=== PATIENT | female | born 1990 | race African-American/Black ===

== ENCOUNTER 2017-03-08 08:23 | Inpatient (IN) | payer OTHER ==
[2017-03-08] MEDS ORDERED: SODIUM CHLORIDE 1,000 ML IV STA (08:59)
--- NOTE | 2017-03-08 09:04 | PDOC ---
Attending Attestation - HPI HPI: 03/08/17 09:05 The patient is a 25 year old female, with a significant past medical history of Type I Diabetes, who presents to the emergency department with elevated bgm s/p insulin pump disconnection from last night. She notes since then having high bgm readings at home and en route to the ER with EMS. Patient notes having multiple episodes of DKA last known DKA was about a year ago. She denies recent fevers, chills, headache or dizziness. She denies recent nausea, vomit, or constipation. She denies recent dysuria, frequency, urgency or hematuria. She denies recent chest pain or shortness of breath. Allergies: NKA Past surgical history: None reported. Social history: Nonsmoker. Denies EtOH use and recreational drug use. - Physicial Exam PE: 03/08/17 09:05 Constitutional: Awake, alert, oriented. No acute distress. +Tachycardic Head: Normocephalic. Atraumatic Eyes: PERRL. EOMI. Conjunctivae are not pale. ENT: Mucous membranes are dry. Posterior pharynx without exudates or erythema. Uvula midline. Neck: Supple. Full ROM. No lymphadenopathy. Cardiovascular: Regular rate. Regular rhythm. S1, S2 regular. Distal pulses are 2+ and symmetric. Pulmonary/Chest: Diminished breath sounds Right lung field. Clear to auscultation bilaterally No wheezing, rales or rhonchi. +Tachypneic Abdominal: Soft and non-distended. There is LLQ and suprapunic tenderness. No rebound, guarding or rigidity. No organomegaly. No palpable masses. Good bowel sounds. Back: No CVA tenderness. Musculoskeletal: No edema. No cyanosis. No clubbing. Full range of motion in all extremities. Nocalf tenderness. Radial/pedal pulses are intact and 2+ bilaterally Skin: Skin is warm and dry. No petechiae. No purpura. Neurological: Alert and oriented to person, place, and time. Cranial nerves II -XII are grossly intact. Normal speech. Strength is grossly symmetric. No sensory deficits. Psychiatric: Good eye contact. Normal interaction, affect and behavior. <Roverto Deleon - Last Filed: 03/08/17 09:05> - Resident Resident Name: Garret Coulter - ED Attending Attestation I have performed the following: I have examined & evaluated the patient, The case was reviewed & discussed with the resident, I agree w/resident's findings & plan, Exceptions are as noted - Critical Care Time Total Critical Care Time: 45 Critical Care Statement: The care of this patient involved high complexity decision making to prevent further life threatening deterioration of the patient 's condition and/or to evaluate & treat vital organ system(s) failure or risk of failure. - Medical Decision Making 03/08/17 09:04 I, Dr. Nicol Arreola, DO, attest that this document has been prepared under my direction and personally reviewed by me in its entirety. I further attest, that it accurately reflects all work, treatment, procedures and medical decision -making performed by me. 03/08/17 12:36 a/p: 26yo female with uncontrolled type 1 dm on insulin pump -concern for DKA given pump fell off and glucose undetecably high -labs -acetone -ua -ivf hydration -pt is poorly controlled as an oupt with a1c of 11.5 -pump back on and gave herself 7 units BAND LINING BANDER. 03/08/17 13:18 pt with worsening bicarb. concern for DKA, despite iv insulin and NSS. will start insulin gtt. pt will need admission for DKA. 03/08/17 13:44 case discussed with IM who accepts pt to service, consult placed to Dr. Greenberg for ICU. Admitted under Dr. Michelle. <Nicol Arreola - Last Filed: 03/08/17 13:45> Heart Score/ECG Review - ECG Intrepretation Comment:: 03/08/17 12:37 sinus at 97, nl axis, nl interval, no acute st/t wave findings <Nicol Arreola - Last Filed: 03/08/17 13:45>
[2017-03-08 09:18] LABS: BASOPHIL 0.4 % (0-2.0); EOSINOPHIL 0.4 % (0-4.5); MCH 29.9 pg (25.7-33.7); MEAN CELL VOLUME 90.5 fl (80-96); PLATELET COUNT 254 K/MM3 (134-434); RDW 13.9 % (11.6-15.6); WHITE BLOOD COUNT 7.1 K/mm3 (4.0-10.0)
--- NOTE | 2017-03-08 09:23 | PDOC ---
History of Present Illness - General Chief Complaint: Blood Sugar Problem Stated Complaint: BLOOD SUGAR ISSUE Time Seen by Provider: 03/08/17 08:38 History Source: Patient Exam Limitations: No Limitations - History of Present Illness Initial Comments: 03/08/17 09:17 The patient is a 26F with a PMH of T1DM who presents to the ED with a blood glucose problem. The patient states that her humalog pump ripped out overnight. Before she slept she states that her BG was in the 400's. She woke up this morning, noticed the pump was ripped out, and was able to put the pump back in. She checked her BG and it read "high". She gave herself 7 units of humalog at 0726. She has been in DKA 1 year ago and came to the ED with complaints of only lethargy. Patient denies fever, chills, nausea, vomiting, CP, SOB. Past History - Past Medical History Allergies/Adverse Reactions: Allergies Allergy/AdvReac Type Severity Reaction Status Date / Time No Known Allergies Allergy Verified 03/08/17 08:36 Home Medications: Ambulatory Orders Insulin Pump/Infus. Set/Meter [Accu-Chek Combo System] 1 each MC ASDIR 03/08/17 Diabetes: Yes (type 1 on insulin pump) - Surgical History Cholecystectomy: Yes - Suicide/Smoking/Psychosocial Hx Smoking History: Never smoked Have you smoked in the past 12 months: No Information on smoking cessation initiated: No Hx Alcohol Use: No Drug/Substance Use Hx: No Substance Use Type: None Review of Systems - Review of Systems Able to Perform ROS?: Yes Comments:: 03/08/17 09:25 GENERAL/CONSTITUTIONAL: No fever or chills. No weakness. HEAD, EYES, EARS, NOSE AND THROAT: No change in vision. No ear pain or discharge. No sore throat. GASTROINTESTINAL: No nausea, vomiting, diarrhea, constipation, or abdominal pain. GENITOURINARY: No dysuria, frequency, hematuria, or change in urination. CARDIOVASCULAR: No chest pain, palpitations, or lightheadedness. RESPIRATORY: No cough, wheezing, shortness of breath, or hemoptysis. MUSCULOSKELETAL: No joint or muscle swelling or pain. No neck or back pain. SKIN: No rash or lesions. NEUROLOGIC: No headache, numbness, tingling, weakness, loss of consciousness, or change in strength/sensation. ENDOCRINE: No abnormal weight change. Positive for increased thirst. HEMATOLOGIC/LYMPHATIC: No anemia, easy bleeding, or history of blood clots. ALLERGIC/IMMUNOLOGIC: No hives or skin allergy. Is the patient limited Swedish proficient: No *Physical Exam - Vital Signs Last Vital Signs Temp Pulse Resp BP Pulse Ox 98.2 F 100 H 20 119/72 100 03/08/17 08:36 03/08/17 08:36 03/08/17 08:36 03/08/17 08:36 03/08/17 08:36 - Physical Exam Comments: 03/08/17 09:26 GENERAL: Well developed, well nourished. Awake and alert. No acute distress. HEENT: Normocephalic, atraumatic. PERRLA, EOMI. No conjunctival pallor. Sclera are non- icteric. Moist mucous membranes. Oropharynx is clear. NECK: Supple. Full ROM. No JVD. Carotid pulses 2+ and symmetric, without bruits. No thyromegaly. No lymphadenopathy. CARDIOVASCULAR: Regular rate and rhythm. No murmurs, rubs, or gallops. Distal pulses are 2+ and symmetric. PULMONARY: No evidence of respiratory distress. No wheezing, rales or rhonchi. Decreased lung sounds on the R side. ABDOMINAL: Soft. Non-tender. Non-distended. No rebound or guarding. No organomegaly. Normoactive bowel sounds. GENITOURINARY: Mild CVA tenderness on R side. MUSCULOSKELETAL Normal range of motion at all joints. No bony deformities or tenderness. EXTREMITIES: No cyanosis. No clubbing. No edema. No calf tenderness. SKIN: Warm and dry. Normal capillary refill. No rashes. No jaundice. NEUROLOGICAL: Alert, awake, appropriate. Normal speech. Gait is normal without ataxia. PSYCHIATRIC: Cooperative. Good eye contact. Appropriate mood and affect. ED Treatment Course - LABORATORY CBC & Chemistry Diagram: 03/08/17 12:00 03/08/17 12:10 Medical Decision Making - Medical Decision Making 03/08/17 09:26 The patient is a 26F with a PMH of T1DM who presents in mild DKA. I have ordered labs and imaging and established a line. Pending results. Will dispo as appropriate. I am concerned for an infectious process in her lungs and/or kidneys that could have caused her BG to be elevated last night, only to be worsened by a disconnected pump overnight. Will reassess when labs/imaging return. 03/08/17 10:39 Patient does not have a WBC count. Acetone 2+. Will order IV insulin. UA indicative of UTI. I have ordered levaquin 750 for UTI. pH does not indicate acidosis. 03/08/17 12:55 Patient states she is feeling better. She is resting comfortably in bed. Pending repeat labs. 03/08/17 13:36 Patient's repeat labs are indicative of DKA. Admitted to hospitalist team for ICU with Dr. Greenberg as ICU consult. *DC/Admit/Observation/Transfer Diagnosis at time of Disposition: Pyelonephritis Diabetic ketoacidosis Qualifiers: Diabetes mellitus type: type 1 Diabetes mellitus complication detail: without coma Qualified Code(s): E10.10 - Type 1 diabetes mellitus with ketoacidosis without coma; E10.10 - Type 1 diabetes mellitus with ketoacidosis without coma; E10.10 - Type 1 diabetes mellitus with ketoacidosis without coma; E10.10 - Type 1 diabetes mellitus with ketoacidosis without coma - Discharge Dispostion Condition at time of disposition: Guarded Admit: Yes
[2017-03-08 09:24] VITALS: BMI 16.5
[2017-03-08 09:28] LABS: INR 0.88 (0.82-1.09)
[2017-03-08 09:34] LABS: VENOUS BLOOD GAS HCO3 23.5 meq/L (19-25); VENOUS PH 7.35 (7.32-7.42)
[2017-03-08 09:54] LABS: ALBUMIN 3.6 g/dl (3.4-5.0); ANION GAP 14 (8-16); BILIRUBIN,TOTAL 0.6 mg/dL (0.2-1.0); CALCIUM 9.1 mg/dL (8.5-10.1); CO2 24 mmol/L (21-32); CREATININE 0.9 mg/dL (0.55-1.02); SGOT/AST 13 U/L (15-37); SGPT/ALT 24 U/L (12-78); TOT PROT 7.5 g/dl (6.4-8.2)
[2017-03-08 09:56] LABS: ALK PHOS 99 U/L (45-117); CPK 78 IU/L (26-192); TROPONIN I < 0.02 ng/ml (0.00-0.05)
[2017-03-08 09:59] LABS: GLUCOSE,RANDOM 503 mg/dL (74-106)
[2017-03-08 10:14] LABS: PH,URINE 5.5 (5.0-8.0); URINE APPEARANCE CLEAR; URINE BILIRUBIN NEGATIVE (NEGATIVE); URINE BLOOD 1+ (NEGATIVE); URINE COLOR LT. YELLOW; URINE GLUCOSE (UA) 3+ (NEGATIVE); URINE KETONE 3+ (NEGATIVE); URINE PROTEIN NEGATIVE (NEGATIVE); URINE UROBILINOGEN 0.2 mg/dL (0.2-1.0)
[2017-03-08 10:18] LABS: URINE NITRITE POSITIVE (NEGATIVE)
[2017-03-08] MEDS ORDERED: INSULIN (NOVOLOG) ASPART 100 UNITS/ML 10ML VIAL SQ ONE (10:23)
[2017-03-08] MEDS ORDERED: SODIUM CHLORIDE 0.9% 1000 ML INFUS.BAG IV ONE ×3 (10:23→13:23)
[2017-03-08] MEDS ORDERED: LEVOFLOXACIN 500 MG IVPB 100 ML IVPB ONE (10:31)
[2017-03-08 10:32] LABS: MAGNESIUM 2.1 mg/dL (1.8-2.4)
[2017-03-08] MEDS ORDERED: INSULIN REGULAR HUMAN 100 UNITS/ML *VIAL IVPUSH ONE (10:33)
[2017-03-08] MEDS ORDERED: LEVOFLOXACIN 750 MG IVPB 150 ML IVPB ONE ×2 (10:35→11:13)
[2017-03-08 12:25] LABS: BASOPHIL 0.3 % (0-2.0); EOSINOPHIL 0.1 % (0-4.5); MCH 30.1 pg (25.7-33.7); MCHC 33.4 g/dl (32.0-36.0); MEAN CELL VOLUME 90.2 fl (80-96); MEAN PLT VOLUME 8.9 fl (7.5-11.1); NEUTROPHILS 69.1 % (42.8-82.8); PLATELET COUNT 214 K/MM3 (134-434); RDW 14.1 % (11.6-15.6); WHITE BLOOD COUNT 6.9 K/mm3 (4.0-10.0)
[2017-03-08 13:00] LABS: ALBUMIN 3.1 g/dl (3.4-5.0); ALK PHOS 77 U/L (45-117); ANION GAP 16 (8-16); BILIRUBIN,TOTAL 0.4 mg/dL (0.2-1.0); CALCIUM 7.3 mg/dL (8.5-10.1); CO2 17 mmol/L (21-32); CREATININE 0.7 mg/dL (0.55-1.02); SGOT/AST 11 U/L (15-37); SGPT/ALT 20 U/L (12-78); TOT PROT 6.2 g/dl (6.4-8.2)
[2017-03-08 13:05] LABS: GLUCOSE,RANDOM 311 mg/dL (74-106)
[2017-03-08] MEDS ORDERED: INSULIN REGULAR 100 UNITS in SODIUM CHLORIDE 99 ML IVPB SCH ×2 (13:30→18:14)
[2017-03-08 14:25] LABS: ACETONE SERUM POSITIVE MODERATE 2+ (NEGATIVE)
[2017-03-08 15:03] LABS: ARTERIAL BLD GAS O2 SATURATION 98.2 % (90-98.9); ARTERIAL BLOOD GAS BASE EXCESS -9.8 meq/l (-2-2); ARTERIAL BLOOD GAS HCO3 15.5 meq/L (22-26); ARTERIAL BLOOD GAS pH 7.29 (7.35-7.45)
[2017-03-08 15:04] LABS: ALLENS TEST POSITIVE; ART PUNCT SITE RIGHT RADIAL; LPM/O2% 21%; PT. ON O2? NO; TYPE OF O2 R/A
[2017-03-08 15:06] LABS: METHEMOGLOBIN 0.5 % (0.4-1.5)
[2017-03-08] MEDS ORDERED: SODIUM CHLORIDE 1,000 ML IV SCH ×2 (16:15→21:00)
[2017-03-08 16:17] LABS: URINE BACTERIA MODERATE /hpf (NONE SEEN); URINE MUCUS RARE; URINE RBC <1 /hpf (0-3); URINE WBC 9 /hpf (3-5)
[2017-03-08] MEDS: POTASSIUM CHLORIDE 20 MEQ PREMIX IVPB 100 ML IVPB SCH ×2 (16:28→16:29)
[2017-03-08] MEDS ORDERED: SODIUM CHLORIDE 0.9%/KCL 1,000 ML IV SCH (16:30)
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
[2017-03-08 17:07] LABS: ANION GAP 16 (8-16); CO2 16 mmol/L (21-32); CREATININE 0.6 mg/dL (0.55-1.02); GLUCOSE,RANDOM 259 mg/dL (74-106)
[2017-03-08 17:08] LABS: CALCIUM 7.1 mg/dL (8.5-10.1)
--- NOTE | 2017-03-08 17:14 | EKG ---
Test Reason : Blood Pressure : / mmHG Vent. Rate : 097 BPM Atrial Rate : 097 BPM P-R Int : 144 ms QRS Dur : 076 ms QT Int : 352 ms P-R-T Axes : 079 071 066 degrees QTc Int : 447 ms NORMAL SINUS RHYTHM POSSIBLE LEFT ATRIAL ENLARGEMENT BORDERLINE ECG NO PREVIOUS ECGS AVAILABLE Confirmed by ILSA MICHEL, JAYCE ([id number]) on 03/08/2017 5:13:42 PM Referred By: Confirmed By:JAYCE ROSENBAUM MD
--- NOTE | 2017-03-08 17:20 | PN ---
Teaching Attending Note Name of Resident: Gisele Sy ATTENDING PHYSICIAN STATEMENT I saw and evaluated the patient. I reviewed the resident's note and discussed the case with the resident. I agree with the resident's findings and plan as documented. SUBJECTIVE: This is a 26 year old woman with a history of type 1 DM, multiple episodes of DKA who comes to the ER because of fatigue and high sugars. When she awoke this morning, she felt tired and found that her insulin pump had become disconnected. She found her glucose to be in the 600s. She reconnected the pump but her sugars worsened. She denies fever, chills, abdominal pain, nausea, vomiting, diarrhea, dysuria, urinary frequency. OBJECTIVE: Vital Signs Period Temp Pulse Resp BP Sys/Hwang Pulse Ox Last 24 Hr 98.2 F 100-101 18-20 119-121/72-85 100-100 HEART: S1S2, tachycardic LUNGS: Clear ABDOMEN: Soft, non-tender, non-distended, normal BS EXTREMITIES: No edema Home Medications Medication Instructions Recorded Insulin Pump/Infus. Set/Meter 1 each ASDIR 03/08/17 [Accu-Chek Combo System] Laboratory Tests 03/08/17 03/08/17 03/08/17 09:05 09:05 09:05 WBC 7.1 RBC 3.77 Hgb 11.3 Hct 34.1 MCV 90.5 MCH 29.9 MCHC 33.0 RDW 13.9 Plt Count 254 MPV 9.0 Neutrophils % 70.0 Lymphocytes % 25.1 Monocytes % 4.1 Eosinophils % 0.4 Basophils % 0.4 PT with INR 10.00 INR 0.88 Puncture Site ABG pH ABG pCO2 at Pt Temp ABG pO2 at Pt Temp ABG HCO3 ABG O2 Sat (Measured) ABG O2 Content ABG Base Excess Magno Test VBG pH POC VBG pCO2 POC VBG pO2 Mixed VBG HCO3 Carboxyhemoglobin Methemoglobin O2 Delivery Device Oxygen Flow Rate PEEP Sodium 129 L Potassium 4.3 Chloride 91 L Carbon Dioxide 24 Anion Gap 14 BUN 16 Creatinine 0.9 Creat Clearance w eGFR > 60 Random Glucose 503 H* Lactic Acid Calcium 9.1 Magnesium 2.1 Total Bilirubin 0.6 AST 13 L ALT 24 Alkaline Phosphatase 99 Creatine Kinase 78 Troponin I < 0.02 Total Protein 7.5 Albumin 3.6 Serum , Qual Urine Color Urine Appearance Urine pH Urine Protein Urine Glucose (UA) Urine Ketones Urine Blood Urine Nitrite Urine Bilirubin Urine Urobilinogen Urine RBC Urine WBC Ur Epithelial Cells Urine Bacteria Urine Mucus Urine HCG, Qual Acetone, Qual 03/08/17 03/08/17 03/08/17 09:05 09:16 09:17 WBC RBC Hgb Hct MCV MCH MCHC RDW Plt Count MPV Neutrophils % Lymphocytes % Monocytes % Eosinophils % Basophils % PT with INR INR Puncture Site ABG pH ABG pCO2 at Pt Temp ABG pO2 at Pt Temp ABG HCO3 ABG O2 Sat (Measured) ABG O2 Content ABG Base Excess Magno Test VBG pH POC VBG pCO2 POC VBG pO2 Mixed VBG HCO3 Carboxyhemoglobin Methemoglobin O2 Delivery Device Oxygen Flow Rate PEEP Sodium Potassium Chloride Carbon Dioxide Anion Gap BUN Creatinine Creat Clearance w eGFR Random Glucose Lactic Acid 1.1 Calcium Magnesium Total Bilirubin AST ALT Alkaline Phosphatase Creatine Kinase Troponin I Total Protein Albumin Serum , Qual Urine Color Lt. yellow Urine Appearance Clear Urine pH 5.5 Urine Protein Negative Urine Glucose (UA) 3+ H Urine Ketones 3+ H Urine Blood 1+ H Urine Nitrite Positive Urine Bilirubin Negative Urine Urobilinogen 0.2 Urine RBC <1 Urine WBC 9 Ur Epithelial Cells Few Urine Bacteria Moderate Urine Mucus Rare Urine HCG, Qual Acetone, Qual Positive moderate 2+ H 03/08/17 03/08/17 03/08/17 09:17 09:26 09:34 WBC RBC Hgb Hct MCV MCH MCHC RDW Plt Count MPV Neutrophils % Lymphocytes % Monocytes % Eosinophils % Basophils % PT with INR INR Puncture Site ABG pH ABG pCO2 at Pt Temp ABG pO2 at Pt Temp ABG HCO3 ABG O2 Sat (Measured) ABG O2 Content ABG Base Excess Magno Test VBG pH 7.35 POC VBG pCO2 43.5 POC VBG pO2 53.8 H Mixed VBG HCO3 23.5 Carboxyhemoglobin Methemoglobin O2 Delivery Device Oxygen Flow Rate PEEP Sodium Potassium Chloride Carbon Dioxide Anion Gap BUN Creatinine Creat Clearance w eGFR Random Glucose Lactic Acid Calcium Magnesium Total Bilirubin AST ALT Alkaline Phosphatase Creatine Kinase Troponin I Total Protein Albumin Serum , Qual Negative Urine Color Urine Appearance Urine pH Urine Protein Urine Glucose (UA) Urine Ketones Urine Blood Urine Nitrite Urine Bilirubin Urine Urobilinogen Urine RBC Urine WBC Ur Epithelial Cells Urine Bacteria Urine Mucus Urine HCG, Qual Negative Acetone, Qual 03/08/17 03/08/17 03/08/17 12:00 12:10 15:00 WBC 6.9 RBC 3.48 L Hgb 10.5 L Hct 31.4 L MCV 90.2 MCH 30.1 MCHC 33.4 RDW 14.1 Plt Count 214 MPV 8.9 Neutrophils % 69.1 Lymphocytes % 25.5 Monocytes % 5.0 Eosinophils % 0.1 Basophils % 0.3 PT with INR INR Puncture Site Right radial ABG pH 7.29 L ABG pCO2 at Pt Temp 33.5 L ABG pO2 at Pt Temp 102.0 H ABG HCO3 15.5 L ABG O2 Sat (Measured) 98.2 ABG O2 Content 12.9 L ABG Base Excess -9.8 L Magno Test Positive VBG pH POC VBG pCO2 POC VBG pO2 Mixed VBG HCO3 Carboxyhemoglobin Methemoglobin O2 Delivery Device R/a Oxygen Flow Rate 21% PEEP 0.0 Sodium 136 Potassium 3.9 Chloride 103 D Carbon Dioxide 17 L D Anion Gap 16 BUN 15 Creatinine 0.7 D Creat Clearance w eGFR > 60 Random Glucose 311 H* D Lactic Acid Calcium 7.3 L Magnesium Total Bilirubin 0.4 D AST 11 L ALT 20 Alkaline Phosphatase 77 D Creatine Kinase Troponin I Total Protein 6.2 L Albumin 3.1 L Serum , Qual Urine Color Urine Appearance Urine pH Urine Protein Urine Glucose (UA) Urine Ketones Urine Blood Urine Nitrite Urine Bilirubin Urine Urobilinogen Urine RBC Urine WBC Ur Epithelial Cells Urine Bacteria Urine Mucus Urine HCG, Qual Acetone, Qual Positive moderate 2+ H 03/08/17 03/08/17 15:00 15:29 WBC RBC Hgb Hct MCV MCH MCHC RDW Plt Count MPV Neutrophils % Lymphocytes % Monocytes % Eosinophils % Basophils % PT with INR INR Puncture Site ABG pH ABG pCO2 at Pt Temp ABG pO2 at Pt Temp ABG HCO3 ABG O2 Sat (Measured) ABG O2 Content ABG Base Excess Magno Test VBG pH POC VBG pCO2 POC VBG pO2 Mixed VBG HCO3 Carboxyhemoglobin 1.5 Methemoglobin 0.5 O2 Delivery Device Oxygen Flow Rate PEEP Sodium 137 Potassium 4.0 Chloride 105 Carbon Dioxide 16 L Anion Gap 16 BUN 13 Creatinine 0.6 Creat Clearance w eGFR Random Glucose 259 H Lactic Acid Calcium 7.1 L Magnesium Total Bilirubin AST ALT Alkaline Phosphatase Creatine Kinase Troponin I Total Protein Albumin Serum , Qual Urine Color Urine Appearance Urine pH Urine Protein Urine Glucose (UA) Urine Ketones Urine Blood Urine Nitrite Urine Bilirubin Urine Urobilinogen Urine RBC Urine WBC Ur Epithelial Cells Urine Bacteria Urine Mucus Urine HCG, Qual Acetone, Qual ASSESSMENT AND PLAN: This is a 26 year old woman with a history of type 1 DM, multiple episodes of DKA who presented to the ER today with fatigue and high sugars. 1. DKA - Admit to ICU - IV fluid - Regular insulin IV drip - Monitor ABG, BMP, fingersticks 2. Type 1 DM, uncontrolled 3. Pseudohyponatremia - Improved
[2017-03-08 17:31] LABS: CPK 79 IU/L (26-192)
[2017-03-08 17:32] LABS: TROPONIN I < 0.02 ng/ml (0.00-0.05)
[2017-03-08] MEDS ORDERED: D5-1/2NS+20 MEQ KCL - 1,000 ML IV SCH (18:15)
[2017-03-08 19:07] LABS: ANION GAP 10 (8-16); CALCIUM 7.5 mg/dL (8.5-10.1); CO2 22 mmol/L (21-32); CREATININE 0.6 mg/dL (0.55-1.02); GLUCOSE,RANDOM 89 mg/dL (74-106)
[2017-03-08 19:14] LABS: URINE LEUK ESTERASE Negative (NEGATIVE)
[2017-03-08] MEDS ORDERED: FLU VACCINE QUAD 60 MCG/0.5 ML (MDV 17-18) IM ONE (19:46)
[2017-03-08] MEDS ORDERED: PNEUMOC 13-VAL CONJ-DIP CRM/PF 0.5 ML DISP.SYRIN IM ONE (19:46)
[2017-03-08] MEDS ORDERED: PNEUMOCOCCAL 23 VACCINE 0.5 ML VIAL IM ONE (20:00)
--- NOTE | 2017-03-08 20:32 | CONSULT ---
Consult Consult Specialty:: Pulm/CCM Reason for Consultation:: DKA - History of Present Illness History of Present Illness: 26yow with PMHx of Type 1 DM (on insulin pump), with multiple past admits to [facility] for DKA who presented to the ED with c/o fatigue and BG 600 in setting of glucose pump dislodgement. Also c/o mild nonradiating, nonexertional , chest pressure related to stress. In the ER HD stable. Labs notable for BG 503, AG of 16, ABG pH 7.29, bicarb 15.5, +Ketones in serum and urine. UA also positive for nitrites. She received 4 IVF NS boluses and Novolog 10u SQ. She also received a dose of Levaquin 750 for the suspected UTI. She was transferred to ICU for further management. In ICU received A+O x3, BP 110/77, HR 90 O2 sat 98% on room air. States that chest pressure was transient and has resolved. No c/o dysuria. Tolerating po intake. - History Source History Provided By: Patient, Medical Record - Past Medical History ...LMP: 02/21/17 ...: No Endocrine: Yes: Diabetes Mellitus (Type 1 DM) - Alcohol/Substance Use Hx Alcohol Use: No - Smoking History Smoking history: Never smoked Have you smoked in the past 12 months: No - Social History Usual Living Arrangement: Alone ADL: Independent Home Medications - Allergies Allergies/Adverse Reactions: Allergies Allergy/AdvReac Type Severity Reaction Status Date / Time No Known Allergies Allergy Verified 03/08/17 08:36 - Home Medications Home Medications: Ambulatory Orders Insulin Pump/Infus. Set/Meter [Accu-Chek Combo System] 1 each ASDIR 03/08/17 Family Disease History - Family Disease History Family History: Unremarkable Review of Systems - Review of Systems Constitutional: reports: Lethargy Eyes: reports: No Symptoms HENT: reports: No Symptoms Neck: reports: No Symptoms Cardiovascular: reports: Chest Pain Respiratory: reports: No Symptoms Gastrointestinal: reports: No Symptoms Genitourinary: reports: No Symptoms Musculoskeletal: reports: No Symptoms Integumentary: reports: No Symptoms Neurological: reports: No Symptoms Hematology/Lymphatic: reports: No Symptoms Psychiatric: reports: No Symptoms Physical Exam Vital Signs: Vital Signs Temperature 98.4 F 03/08/17 18:50 Pulse Rate 105 H 10/26/17 20:00 Respiratory Rate 12 03/08/17 20:00 Blood Pressure 110/77 03/08/17 20:00 O2 Sat by Pulse Oximetry (%) 100 03/08/17 13:37 Constitutional: Yes: No Distress, Calm, Thin Eyes: Yes: WNL HENT: Yes: WNL Neck: Yes: WNL, Supple Cardiovascular: Yes: Regular Rate and Rhythm Respiratory: Yes: Regular, CTA Bilaterally Gastrointestinal: Yes: Normal Bowel Sounds, Soft Renal/: Yes: WNL Extremities: Yes: WNL Edema: No Peripheral Pulses WNL: Yes Neurological: Yes: Alert, Oriented ...Motor Strength: LUE, LLE, RUE, RLE Psychiatric: Yes: WNL, Alert, Oriented Labs: CBC, BMP 03/08/17 18:30 CBC,CMP WBC 6.9 K/mm3 (4.0-10.0) 03/08/17 12:00 RBC 3.48 M/mm3 (3.60-5.2) L 03/08/17 12:00 Hgb 10.5 GM/dL (10.7-15.3) L 03/08/17 12:00 Hct 31.4 % (32.4-45.2) L 03/08/17 12:00 MCV 90.2 fl (80-96) 03/08/17 12:00 MCH 30.1 pg (25.7-33.7) 03/08/17 12:00 MCHC 33.4 g/dl (32.0-36.0) 03/08/17 12:00 RDW 14.1 % (11.6-15.6) 03/08/17 12:00 Plt Count 214 K/MM3 (134-434) 03/08/17 12:00 MPV 8.9 fl (7.5-11.1) 03/08/17 12:00 Neutrophils % 69.1 % (42.8-82.8) 03/08/17 12:00 Lymphocytes % 25.5 % (8-40) 03/08/17 12:00 Monocytes % 5.0 % (3.8-10.2) 03/08/17 12:00 Eosinophils % 0.1 % (0-4.5) 03/08/17 12:00 Basophils % 0.3 % (0-2.0) 03/08/17 12:00 Sodium 141 mmol/L (136-145) 03/08/17 18:30 Potassium 3.8 mmol/L (3.5-5.1) 03/08/17 18:30 Chloride 109 mmol/L (98-107) H 03/08/17 18:30 Carbon Dioxide 22 mmol/L (21-32) D 03/08/17 18:30 Anion Gap 10 (8-16) 03/08/17 18:30 BUN 11 mg/dL (7-18) 03/08/17 18:30 Creatinine 0.6 mg/dL (0.55-1.02) 03/08/17 18:30 Creat Clearance w eGFR > 60 (>60) 03/08/17 12:10 POC Glucometer 132.64608 UNITS (()) 03/08/17 18:13 Random Glucose 89 mg/dL (74-106) D 03/08/17 18:30 Lactic Acid 1.1 mmol/L (0.4-2.0) 03/08/17 09:05 Calcium 7.5 mg/dL (8.5-10.1) L 03/08/17 18:30 Magnesium 2.1 mg/dL (1.8-2.4) 03/08/17 09:05 Total Bilirubin 0.4 mg/dL (0.2-1.0) D 03/08/17 12:10 AST 11 U/L (15-37) L 03/08/17 12:10 ALT 20 U/L (12-78) 03/08/17 12:10 Alkaline Phosphatase 77 U/L (45-117) D 03/08/17 12:10 Creatine Kinase 79 IU/L (26-192) 03/08/17 16:00 Troponin I < 0.02 ng/ml (0.00-0.05) 03/08/17 16:00 Total Protein 6.2 g/dl (6.4-8.2) L 03/08/17 12:10 Albumin 3.1 g/dl (3.4-5.0) L 03/08/17 12:10 Serum , Qual Negative 03/08/17 09:26 Current Medications Chlorhexidine Gluconate (Hibiclens For Decolonization -) 1 applic TP HS [facility] Enoxaparin Sodium (Lovenox -) 40 mg SQ DAILY [facility] Levofloxacin (Levaquin 750 Mg Premixed Ivpb -) 150 mls @ 100 mls/hr IVPB DAILY [facility] Insulin Human Regular 100 (units/ Sodium Chloride) 100 mls @ 1.38 mls/hr IVPB TITR [facility]; 0.03 UNITS/KG/HR PRN Reason: Protocol Last Admin: 03/08/17 18:16 Dose: 1.38 mls/hr Potassium Chloride/Dextrose/Sod Cl (D5-1/2ns+20 Meq Kcl -) 1,000 mls @ 125 mls/ hr IV ASDIR [facility] Last Admin: 03/08/17 20:09 Dose: Not Given Insulin Detemir (Levemir Vial) 12 units SQ HS [facility] Mupirocin (Bactroban Ointment (For Decolonization) -) 1 applic NS BID [facility] Stop: 03/13/17 21:59 Vital Signs Period Temp Pulse Resp BP Sys/Hwang Pulse Ox Last 24 Hr 98.2 F-98.4 F 100-106 12-20 95-121/54-85 100-100 Problem List - Problems (1) DKA (diabetic ketoacidoses) Code(s): E13.10 - OTH DIABETES MELLITUS WITH KETOACIDOSIS WITHOUT COMA Qualifiers: Diabetes mellitus type: type 1 Diabetes mellitus complication detail: without coma Qualified Code(s): E10.10 - Type 1 diabetes mellitus with ketoacidosis without coma; E10.10 - Type 1 diabetes mellitus with ketoacidosis without coma; E10.10 - Type 1 diabetes mellitus with ketoacidosis without coma; E10.10 - Type 1 diabetes mellitus with ketoacidosis without coma (2) Pyelonephritis Code(s): N12 - TUBULO-INTERSTITIAL NEPHRITIS, NOT SPCF ACUTE OR CHRONIC Assessment/Plan 26yow with PMHx of Type 1 DM on insulin pump admitted with DKA in the setting of a dislodged insulin pump and UTI. Anion GAP now closed. Plan: -Cont levaquin for UTI as per ID -Cont Dextrose IVF and insulin drip while NPO -Monitor BMP and replete K and other electrolytes -Fingersticks q1h with insulin drip -Advance diet now AGAP closed -Start Levemir 2hrs before d/c drip -ISS and fingersticks with AC&HS -DVT prophylaxis -F/u with outpatient zoo director Roshni Gilbert, FABRICEP CC time 35mins
[2017-03-08] MEDS ORDERED: SODIUM CHLORIDE 0.45% 1,000 ML IV SCH (21:00)
[2017-03-08] MEDS: INSULIN SLIDING SCALE (NOVOLOG) 1 VIAL SQ SCH (21:59)
[2017-03-08] MEDS ORDERED: INSULIN DETEMIR 100 UNITS/ML MDV SQ SCH (22:00)
[2017-03-08] MEDS: CHLORHEXIDINE GLUCONATE 4% CLEANSER FOR DECOLONIZATION TP SCH (22:00)
[2017-03-08] MEDS: MUPIROCIN 2% TOPICAL OINTMENT FOR DECOLONIZATION NS SCH (22:00)
[2017-03-09] MEDS: INSULIN SLIDING SCALE (NOVOLOG) 1 VIAL SQ SCH ×4 (06:00→21:33)
[2017-03-09 06:45] LABS: MCH 30.7 pg (25.7-33.7); MCHC 34.3 g/dl (32.0-36.0); MEAN CELL VOLUME 89.7 fl (80-96); MEAN PLT VOLUME 9.2 fl (7.5-11.1); PLATELET COUNT 211 K/MM3 (134-434); RDW 14.5 % (11.6-15.6); WHITE BLOOD COUNT 9.5 K/mm3 (4.0-10.0)
[2017-03-09 07:10] LABS: ALBUMIN 2.7 g/dl (3.4-5.0); ALK PHOS 70 U/L (45-117); ANION GAP 9 (8-16); BILIRUBIN,TOTAL 0.4 mg/dL (0.2-1.0); CALCIUM 7.5 mg/dL (8.5-10.1); CO2 24 mmol/L (21-32); CREATININE 0.6 mg/dL (0.55-1.02); GLUCOSE,RANDOM 148 mg/dL (74-106); MAGNESIUM 1.8 mg/dL (1.8-2.4); PHOSPHOROUS 2.5 mg/dL (2.5-4.9); SGOT/AST 14 U/L (15-37); SGPT/ALT 20 U/L (12-78); TOT PROT 5.8 g/dl (6.4-8.2)
[2017-03-09] MEDS ORDERED: LEVOFLOXACIN 750 MG IVPB 150 ML IVPB SCH (10:00)
[2017-03-09] MEDS: ENOXAPARIN NA (PORCINE) 40 MG/0.4 ML DISP.SYRIN SQ SCH (10:50)
[2017-03-09] MEDS: MUPIROCIN 2% TOPICAL OINTMENT FOR DECOLONIZATION NS SCH ×2 (10:52→21:35)
--- NOTE | 2017-03-09 12:02 | PN ---
Teaching Attending Note Name of Resident: Josie Ward ATTENDING PHYSICIAN STATEMENT I saw and evaluated the patient. I reviewed the resident's note and discussed the case with the resident. I agree with the resident's findings and plan as documented. SUBJECTIVE: Feels overall better. AG closed and blood sugars have improved. Intake & Output 03/06/17 03/07/17 03/08/17 03/09/17 23:59 23:59 23:59 23:59 Intake Total 678 800 Balance 678 800 Weight 102 lb 109 lb 3 oz Last Vital Signs Temp Pulse Resp BP Pulse Ox 98.5 F 86 18 128/89 100 03/09/17 02:00 03/09/17 10:55 03/09/17 10:55 03/09/17 10:55 03/08/17 13:37 Active Medications Chlorhexidine Gluconate (Hibiclens For Decolonization -) 1 applic TP HS [facility] Last Admin: 03/08/17 22:00 Dose: 1 applic Enoxaparin Sodium (Lovenox -) 40 mg SQ DAILY [facility] Last Admin: 03/09/17 10:50 Dose: 40 mg Levofloxacin (Levaquin 750 Mg Premixed Ivpb -) 150 mls @ 100 mls/hr IVPB DAILY [facility] Last Admin: 03/09/17 10:50 Dose: 100 mls/hr Sodium Chloride (1/2 Normal Saline) 1,000 mls @ 50 mls/hr IV ASDIR [facility] Stop: 03/09/17 20:55 Last Admin: 03/08/17 22:00 Dose: 50 mls/hr Insulin Aspart (Novolog Vial Sliding Scale -) 1 vial SQ ACHS [facility] PRN Reason: Protocol Last Admin: 03/09/17 06:00 Dose: 4 units Insulin Detemir (Levemir Vial) 12 units SQ HS [facility] Last Admin: 03/08/17 20:00 Dose: 12 units Mupirocin (Bactroban Ointment (For Decolonization) -) 1 applic NS BID [facility] Stop: 03/13/17 21:59 Last Admin: 03/09/17 10:52 Dose: 1 applic Constitutional: Yes: No Distress, Thin Eyes: Yes: WNL HENT: Yes: WNL Neck: Yes: WNL, Supple Cardiovascular: Yes: Regular Rate and Rhythm Respiratory: Yes: Regular, CTA Bilaterally Gastrointestinal: Yes: Normal Bowel Sounds, Soft Renal/: Yes: WNL Extremities: Yes: WNL Edema: No Peripheral Pulses WNL: Yes Neurological: Yes: Alert, Oriented ...Motor Strength: LUE, LLE, RUE, RLE Psychiatric: Yes: WNL, Alert, Oriented Labs: Laboratory Results - last 24 hr 03/08/17 03/08/17 03/08/17 09:17 12:00 12:10 WBC 6.9 RBC 3.48 L Hgb 10.5 L Hct 31.4 L MCV 90.2 MCH 30.1 MCHC 33.4 RDW 14.1 Plt Count 214 MPV 8.9 Neutrophils % 69.1 Lymphocytes % 25.5 Monocytes % 5.0 Eosinophils % 0.1 Basophils % 0.3 Puncture Site ABG pH ABG pCO2 at Pt Temp ABG pO2 at Pt Temp ABG HCO3 ABG O2 Sat (Measured) ABG O2 Content ABG Base Excess Magno Test Carboxyhemoglobin Methemoglobin O2 Delivery Device Oxygen Flow Rate PEEP Sodium 136 Potassium 3.9 Chloride 103 D Carbon Dioxide 17 L D Anion Gap 16 BUN 15 Creatinine 0.7 D Creat Clearance w eGFR > 60 POC Glucometer Random Glucose 311 H* D Calcium 7.3 L Phosphorus Magnesium Total Bilirubin 0.4 D AST 11 L ALT 20 Alkaline Phosphatase 77 D Creatine Kinase Troponin I Total Protein 6.2 L Albumin 3.1 L Urine Color Lt. yellow Urine Appearance Clear Urine pH 5.5 Ur Specific Holt 1.010 Urine Protein Negative Urine Glucose (UA) 3+ H Urine Ketones 3+ H Urine Blood 1+ H Urine Nitrite Positive Urine Bilirubin Negative Urine Urobilinogen 0.2 Ur Leukocyte Esterase Negative Urine RBC <1 Urine WBC 9 Ur Epithelial Cells Few Urine Bacteria Moderate Urine Mucus Rare Acetone, Qual Positive moderate 2+ H 03/08/17 03/08/17 03/08/17 12:30 15:00 15:00 WBC RBC Hgb Hct MCV MCH MCHC RDW Plt Count MPV Neutrophils % Lymphocytes % Monocytes % Eosinophils % Basophils % Puncture Site Right radial ABG pH 7.29 L ABG pCO2 at Pt Temp 33.5 L ABG pO2 at Pt Temp 102.0 H ABG HCO3 15.5 L ABG O2 Sat (Measured) 98.2 ABG O2 Content 12.9 L ABG Base Excess -9.8 L Magno Test Positive Carboxyhemoglobin 1.5 Methemoglobin 0.5 O2 Delivery Device R/a Oxygen Flow Rate 21% PEEP 0.0 Sodium Potassium Chloride Carbon Dioxide Anion Gap BUN Creatinine Creat Clearance w eGFR POC Glucometer 342.39113 Random Glucose Calcium Phosphorus Magnesium Total Bilirubin AST ALT Alkaline Phosphatase Creatine Kinase Troponin I Total Protein Albumin Urine Color Urine Appearance Urine pH Ur Specific Holt Urine Protein Urine Glucose (UA) Urine Ketones Urine Blood Urine Nitrite Urine Bilirubin Urine Urobilinogen Ur Leukocyte Esterase Urine RBC Urine WBC Ur Epithelial Cells Urine Bacteria Urine Mucus Acetone, Qual 03/08/17 03/08/17 03/08/17 15:19 15:29 16:00 WBC RBC Hgb Hct MCV MCH MCHC RDW Plt Count MPV Neutrophils % Lymphocytes % Monocytes % Eosinophils % Basophils % Puncture Site ABG pH ABG pCO2 at Pt Temp ABG pO2 at Pt Temp ABG HCO3 ABG O2 Sat (Measured) ABG O2 Content ABG Base Excess Magno Test Carboxyhemoglobin Methemoglobin O2 Delivery Device Oxygen Flow Rate PEEP Sodium 137 Potassium 4.0 Chloride 105 Carbon Dioxide 16 L Anion Gap 16 BUN 13 Creatinine 0.6 Creat Clearance w eGFR POC Glucometer 323.89726 Random Glucose 259 H Calcium 7.1 L Phosphorus Magnesium Total Bilirubin AST ALT Alkaline Phosphatase Creatine Kinase 79 Troponin I < 0.02 Total Protein Albumin Urine Color Urine Appearance Urine pH Ur Specific Holt Urine Protein Urine Glucose (UA) Urine Ketones Urine Blood Urine Nitrite Urine Bilirubin Urine Urobilinogen Ur Leukocyte Esterase Urine RBC Urine WBC Ur Epithelial Cells Urine Bacteria Urine Mucus Acetone, Qual 03/08/17 03/08/17 03/08/17 16:50 18:13 18:30 WBC RBC Hgb Hct MCV MCH MCHC RDW Plt Count MPV Neutrophils % Lymphocytes % Monocytes % Eosinophils % Basophils % Puncture Site ABG pH ABG pCO2 at Pt Temp ABG pO2 at Pt Temp ABG HCO3 ABG O2 Sat (Measured) ABG O2 Content ABG Base Excess Magno Test Carboxyhemoglobin Methemoglobin O2 Delivery Device Oxygen Flow Rate PEEP Sodium 141 Potassium 3.8 Chloride 109 H Carbon Dioxide 22 D Anion Gap 10 BUN 11 Creatinine 0.6 Creat Clearance w eGFR POC Glucometer 215.63864 132.01011 Random Glucose 89 D Calcium 7.5 L Phosphorus Magnesium Total Bilirubin AST ALT Alkaline Phosphatase Creatine Kinase Troponin I Total Protein Albumin Urine Color Urine Appearance Urine pH Ur Specific Holt Urine Protein Urine Glucose (UA) Urine Ketones Urine Blood Urine Nitrite Urine Bilirubin Urine Urobilinogen Ur Leukocyte Esterase Urine RBC Urine WBC Ur Epithelial Cells Urine Bacteria Urine Mucus Acetone, Qual 03/09/17 03/09/17 06:20 06:20 WBC 9.5 D RBC 3.23 L Hgb 9.9 L Hct 29.0 L MCV 89.7 MCH 30.7 MCHC 34.3 RDW 14.5 Plt Count 211 MPV 9.2 Neutrophils % Lymphocytes % Monocytes % Eosinophils % Basophils % Puncture Site ABG pH ABG pCO2 at Pt Temp ABG pO2 at Pt Temp ABG HCO3 ABG O2 Sat (Measured) ABG O2 Content ABG Base Excess Magno Test Carboxyhemoglobin Methemoglobin O2 Delivery Device Oxygen Flow Rate PEEP Sodium 138 Potassium 3.7 Chloride 105 Carbon Dioxide 24 Anion Gap 9 BUN 9 Creatinine 0.6 Creat Clearance w eGFR > 60 POC Glucometer Random Glucose 148 H D Calcium 7.5 L Phosphorus 2.5 Magnesium 1.8 Total Bilirubin 0.4 AST 14 L D ALT 20 Alkaline Phosphatase 70 Creatine Kinase Troponin I Total Protein 5.8 L Albumin 2.7 L Urine Color Urine Appearance Urine pH Ur Specific Holt Urine Protein Urine Glucose (UA) Urine Ketones Urine Blood Urine Nitrite Urine Bilirubin Urine Urobilinogen Ur Leukocyte Esterase Urine RBC Urine WBC Ur Epithelial Cells Urine Bacteria Urine Mucus Acetone, Qual Problem List - Problems (1) DKA (diabetic ketoacidoses) Code(s): E13.10 - OTH DIABETES MELLITUS WITH KETOACIDOSIS WITHOUT COMA Qualifiers: Diabetes mellitus type: type 1 Diabetes mellitus complication detail: without coma Qualified Code(s): E10.10 - Type 1 diabetes mellitus with ketoacidosis without coma; E10.10 - Type 1 diabetes mellitus with ketoacidosis without coma; E10.10 - Type 1 diabetes mellitus with ketoacidosis without coma; E10.10 - Type 1 diabetes mellitus with ketoacidosis without coma (2) Pyelonephritis Code(s): N12 - TUBULO-INTERSTITIAL NEPHRITIS, NOT SPCF ACUTE OR CHRONIC Assessment/Plan Will need to contact outpatient Endocrine at [facility] Current medication regimen D/C planning Dr Greenberg
[2017-03-09 13:30] LABS: ANION GAP 8 (8-16); CALCIUM 7.9 mg/dL (8.5-10.1); CO2 25 mmol/L (21-32); CREATININE 0.6 mg/dL (0.55-1.02)
[2017-03-09 13:52] LABS: GLUCOSE,RANDOM 363 mg/dL (74-106)
[2017-03-09] MEDS ORDERED: INSULIN DETEMIR 100 UNITS/ML MDV SQ ONE (14:10)
--- NOTE | 2017-03-09 14:16 | PN ---
Physical Exam: SUBJECTIVE: Patient seen and examined. Feels better than yesterday. No fevers, chillss, CP, SOB. Eating well OBJECTIVE: Vital Signs Period Temp Pulse Resp BP Sys/Hwang Pulse Ox Last 24 Hr 98.4 F-98.7 F 80-106 12-23 94-128/54-89 GEN: AAOx3, NAD, Lying in bed, less weak today, conversing well HEENT: PERRLA, EOMi CV: S1, S2, RRR, No murmurs LUNG: CTABL ABD: Soft, moderate discomfort in suprapubic region MSK: No edema, no erythema NEURO: Neurologically intact, CN 2-12 intact, no MSK or sensation deficits. Laboratory Last Values WBC 9.5 K/mm3 (4.0-10.0) D 03/09/17 06:20 RBC 3.23 M/mm3 (3.60-5.2) L 03/09/17 06:20 Hgb 9.9 GM/dL (10.7-15.3) L 03/09/17 06:20 Hct 29.0 % (32.4-45.2) L 03/09/17 06:20 MCV 89.7 fl (80-96) 03/09/17 06:20 MCH 30.7 pg (25.7-33.7) 03/09/17 06:20 MCHC 34.3 g/dl (32.0-36.0) 03/09/17 06:20 RDW 14.5 % (11.6-15.6) 03/09/17 06:20 Plt Count 211 K/MM3 (134-434) 03/09/17 06:20 MPV 9.2 fl (7.5-11.1) 03/09/17 06:20 Neutrophils % 69.1 % (42.8-82.8) 03/08/17 12:00 Lymphocytes % 25.5 % (8-40) 03/08/17 12:00 Monocytes % 5.0 % (3.8-10.2) 03/08/17 12:00 Eosinophils % 0.1 % (0-4.5) 03/08/17 12:00 Basophils % 0.3 % (0-2.0) 03/08/17 12:00 PT with INR 10.00 SEC (9.98-11.88) 03/08/17 09:05 INR 0.88 (0.82-1.09) 03/08/17 09:05 Puncture Site Right radial 03/08/17 15:00 ABG pH 7.29 (7.35-7.45) L 03/08/17 15:00 ABG pCO2 at Pt Temp 33.5 mmHg (35-45) L 03/08/17 15:00 ABG pO2 at Pt Temp 102.0 mmHg (80-100) H 03/08/17 15:00 ABG HCO3 15.5 meq/L (22-26) L 03/08/17 15:00 ABG O2 Sat (Measured) 98.2 % (90-98.9) 03/08/17 15:00 ABG O2 Content 12.9 % vol (15-22) L 03/08/17 15:00 ABG Base Excess -9.8 meq/l (-2-2) L 03/08/17 15:00 Magno Test Positive 03/08/17 15:00 VBG pH 7.35 (7.32-7.42) 03/08/17 09:17 POC VBG pCO2 43.5 mmHg (38-52) 03/08/17 09:17 POC VBG pO2 53.8 mmHg (28-48) H 03/08/17 09:17 Mixed VBG HCO3 23.5 meq/L (19-25) 03/08/17 09:17 Carboxyhemoglobin 1.5 gm% (0.5-2.0) 03/08/17 15:00 Methemoglobin 0.5 % (0.4-1.5) 03/08/17 15:00 O2 Delivery Device R/a 03/08/17 15:00 Oxygen Flow Rate 21% 03/08/17 15:00 PEEP 0.0 cmH2O 03/08/17 15:00 Sodium 134 mmol/L (136-145) L 03/09/17 13:00 Potassium 4.2 mmol/L (3.5-5.1) 03/09/17 13:00 Chloride 101 mmol/L (98-107) 03/09/17 13:00 Carbon Dioxide 25 mmol/L (21-32) 03/09/17 13:00 Anion Gap 8 (8-16) 03/09/17 13:00 BUN 8 mg/dL (7-18) 03/09/17 13:00 Creatinine 0.6 mg/dL (0.55-1.02) 03/09/17 13:00 Creat Clearance w eGFR > 60 (>60) 03/09/17 06:20 POC Glucometer 132.63300 UNITS (()) 03/08/17 18:13 Random Glucose 363 mg/dL (74-106) H* D 03/09/17 13:00 Lactic Acid 1.1 mmol/L (0.4-2.0) 03/08/17 09:05 Calcium 7.9 mg/dL (8.5-10.1) L 03/09/17 13:00 Phosphorus 2.5 mg/dL (2.5-4.9) 03/09/17 06:20 Magnesium 1.8 mg/dL (1.8-2.4) 03/09/17 06:20 Total Bilirubin 0.4 mg/dL (0.2-1.0) 03/09/17 06:20 AST 14 U/L (15-37) L D 03/09/17 06:20 ALT 20 U/L (12-78) 03/09/17 06:20 Alkaline Phosphatase 70 U/L (45-117) 03/09/17 06:20 Creatine Kinase 79 IU/L (26-192) 03/08/17 16:00 Troponin I < 0.02 ng/ml (0.00-0.05) 03/08/17 16:00 Total Protein 5.8 g/dl (6.4-8.2) L 03/09/17 06:20 Albumin 2.7 g/dl (3.4-5.0) L 03/09/17 06:20 Serum , Qual Negative 03/08/17 09:26 Urine Color Lt. yellow 03/08/17 09:17 Urine Appearance Clear 03/08/17 09:17 Urine pH 5.5 (5.0-8.0) 03/08/17 09:17 Ur Specific [place] 1.010 (1.005-1.025) 03/08/17 09:17 Urine Protein Negative (NEGATIVE) 03/08/17 09:17 Urine Glucose (UA) 3+ (NEGATIVE) H 03/08/17 09:17 Urine Ketones 3+ (NEGATIVE) H 03/08/17 09:17 Urine Blood 1+ (NEGATIVE) H 03/08/17 09:17 Urine Nitrite Positive (NEGATIVE) 03/08/17 09:17 Urine Bilirubin Negative (NEGATIVE) 03/08/17 09:17 Urine Urobilinogen 0.2 mg/dL (0.2-1.0) 03/08/17 09:17 Ur Leukocyte Esterase Negative (NEGATIVE) 03/08/17 09:17 Urine RBC <1 /hpf (0-3) 03/08/17 09:17 Urine WBC 9 /hpf (3-5) 03/08/17 09:17 Ur Epithelial Cells Few /hpf (FEW) 03/08/17 09:17 Urine Bacteria Moderate /hpf (NONE SEEN) 03/08/17 09:17 Urine Mucus Rare 03/08/17 09:17 Urine HCG, Qual Negative 03/08/17 09:34 Acetone, Qual Positive moderate 2+ (NEGATIVE) H 03/08/17 12:10 Active Medications Generic Name Dose Route Start Last Admin Trade Name Jing PRN Reason Stop Dose Admin Chlorhexidine Gluconate 1 applic 03/08/17 22:00 03/08/17 22:00 Hibiclens For Decolonization - TP 1 applic HS CADEN Administration Enoxaparin Sodium 40 mg 03/09/17 10:00 03/09/17 10:50 Lovenox - SQ 40 mg DAILY CADEN Administration Levofloxacin 150 mls @ 100 mls/hr 03/09/17 10:00 03/09/17 10:50 Levaquin 750 Mg Premixed Ivpb - IVPB 100 mls/hr DAILY CADEN Administration Sodium Chloride 1,000 mls @ 50 mls/hr 03/08/17 21:00 03/08/17 22:00 1/2 Normal Saline IV 03/09/17 20:55 50 mls/hr ASDIR CADEN Administration Insulin Aspart 1 vial 03/08/17 22:00 03/09/17 06:00 Novolog Vial Sliding Scale - SQ 4 units ACHS CADEN Administration Protocol Insulin Detemir 12 units 03/08/17 22:00 03/08/17 20:00 Levemir Vial SQ 12 units HS CADEN Administration Insulin Detemir 15 units 03/09/17 14:10 Levemir Vial SQ 03/09/17 14:11 ONCE ONE Mupirocin 1 applic 03/08/17 22:00 03/09/17 10:52 Bactroban Ointment (For Decolonization) - NS 03/13/17 21:59 1 applic BID CADEN Administration ASSESSMENT/PLAN: Ms. Hinson is a 26yo F with PMHx of Type 1 DM (on insulin pump), numerous DKA admissions at [facility], who presented to the ED because of an abnormally high glucose read after her insulin pump fell out overnight, found to be in DKA. S/p 4 fluid boluses in ER # Diabetic Ketoacidosis - resolved, likely 2/2 insulin pump displacement, stress , and UTI - Gap closed, this afternoon BGM was >400, 10u coverage given, BMP shows gap still closed, will give 15u Levemir now and likely continue Levemir BID - Spoke to pts third rigger at [facility] (Dr. Castañeda), Pt receives 25.4 unit insulin bolus daily and prandial coverage. Pt unable to be d/c'd on pump bc her connecter is at home. Will monitor her on Levemir 15 unit BID + SSI. # UTI - positive nitrites, moderate bacteria, received Levaquin 750mg today, consider switching to Cefpoxidime 100mg BID tmrw # FEN - IVNS w/ 20meq KCl, f/u electrolytes, NPO for now # PPx - SCDs, Lovenox SQ (Cr wnl), PT not needed # Dispo - Transfer to floors, needs continued stay to manage glucose Gisele Sy MD - PGY1 Internal Medicine Visit type - Emergency Visit Emergency Visit: No - New Patient This patient is new to me today: No - Critical Care Critical Care patient: No - Discharge Referral Referred to [facility] Med P.C.: No
--- NOTE | 2017-03-09 15:15 | PN ---
Physical Exam: SUBJECTIVE: Patient seen and examined at bedside. 24 hr events Anion gap closed. Pt eating and resting comfortably. Today -Denies MIRELES, fever, chills, SOB, abdominal pain, or N/V/D. OBJECTIVE: Vital Signs Period Temp Pulse Resp BP Sys/Hwang Pulse Ox Last 24 Hr 98.4 F-98.7 F 80-106 12-23 94-128/54-89 100 GENERAL: The patient is awake, alert, and fully oriented, in no acute distress. HEAD: Normal with no signs of trauma. EYES: PERRL, extraocular movements intact, sclera anicteric, conjunctiva clear. NECK: Trachea midline, full range of motion, supple. LUNGS: Breath sounds equal, clear to auscultation bilaterally, no wheezes, no crackles, no accessory muscle use. HEART: Regular rate and rhythm, S1, S2 without murmur, rub or gallop. ABDOMEN: Soft, nontender, nondistended, normoactive bowel sounds, no guarding, no rebound, no hepatosplenomegaly, no masses. EXTREMITIES: 2+ posterior tibial pulses, warm, well-perfused, no edema. NEUROLOGICAL: Cranial nerves II through XII grossly intact. Laboratory Results - last 24 hr 03/08/17 03/08/17 03/08/17 15:19 15:29 16:00 WBC RBC Hgb Hct MCV MCH MCHC RDW Plt Count MPV Sodium 137 Potassium 4.0 Chloride 105 Carbon Dioxide 16 L Anion Gap 16 BUN 13 Creatinine 0.6 Creat Clearance w eGFR POC Glucometer 323.65214 Random Glucose 259 H Calcium 7.1 L Phosphorus Magnesium Total Bilirubin AST ALT Alkaline Phosphatase Creatine Kinase 79 Troponin I < 0.02 Total Protein Albumin 03/08/17 03/08/17 03/08/17 16:50 18:13 18:30 WBC RBC Hgb Hct MCV MCH MCHC RDW Plt Count MPV Sodium 141 Potassium 3.8 Chloride 109 H Carbon Dioxide 22 D Anion Gap 10 BUN 11 Creatinine 0.6 Creat Clearance w eGFR POC Glucometer 215.64484 132.60912 Random Glucose 89 D Calcium 7.5 L Phosphorus Magnesium Total Bilirubin AST ALT Alkaline Phosphatase Creatine Kinase Troponin I Total Protein Albumin 03/09/17 03/09/17 03/09/17 06:20 06:20 13:00 WBC 9.5 D RBC 3.23 L Hgb 9.9 L Hct 29.0 L MCV 89.7 MCH 30.7 MCHC 34.3 RDW 14.5 Plt Count 211 MPV 9.2 Sodium 138 134 L Potassium 3.7 4.2 Chloride 105 101 Carbon Dioxide 24 25 Anion Gap 9 8 BUN 9 8 Creatinine 0.6 0.6 Creat Clearance w eGFR > 60 POC Glucometer Random Glucose 148 H D 363 H* D Calcium 7.5 L 7.9 L Phosphorus 2.5 Magnesium 1.8 Total Bilirubin 0.4 AST 14 L D ALT 20 Alkaline Phosphatase 70 Creatine Kinase Troponin I Total Protein 5.8 L Albumin 2.7 L Active Medications Generic Name Dose Route Start Last Admin Trade Name Freq PRN Reason Stop Dose Admin Chlorhexidine Gluconate 1 applic 03/08/17 22:00 03/08/17 22:00 Hibiclens For Decolonization - TP 1 applic HS CADEN Administration Enoxaparin Sodium 40 mg 03/09/17 10:00 03/09/17 10:50 Lovenox - SQ 40 mg DAILY CADEN Administration Sodium Chloride 1,000 mls @ 50 mls/hr 03/08/17 21:00 03/08/17 22:00 1/2 Normal Saline IV 03/09/17 20:55 50 mls/hr ASDIR CADEN Administration Insulin Aspart 1 vial 03/08/17 22:00 03/09/17 06:00 Novolog Vial Sliding Scale - SQ 4 units ACHS [facility] Administration Protocol Insulin Detemir 15 units 03/09/17 22:00 Levemir Vial SQ BID@0700,2200 CADEN Levofloxacin 750 mg 03/10/17 06:00 Levaquin PO DAILY@0600 [facility] Mupirocin 1 applic 03/08/17 22:00 03/09/17 10:52 Bactroban Ointment (For Decolonization) - NS 03/13/17 21:59 1 applic BID CADEN Administration ASSESSMENT/PLAN: 26 y/o F with PMH Type 1 DM (on insulin pump), numerous DKA admissions at [facility], who presented to the ED d/t BG 600. Found to be in DKA. Pt admitted to ICU for further monitoring. # DKA- resolved, likely 2/2 insulin pump displacement, stress, and UTI - Anion Gap closed, this afternoon BGM 405, 10u coverage given. - BMP shows gap still closed, will give 15u Levemir now and likely continue Levemir BID -Will continue to follow BMP, BG - Message left with Luis Danielxiomara communications director, call placed again- message # UTI -+ nitrites -was on Levaquin 750mg, may switch to Cefpoxidime 100mg BID since Levaquin can cause hyperglycemia # FEN - -currently not on fluids -will monitor BMPs, blood sugars -pt is eating # PPx - SCDs, Lovenox SQ Early ambulation # Dispo - Transfer to floor is in, but continued monitoring in ICU d/t elevated sugars this afternoon Visit type - Emergency Visit Emergency Visit: No - New Patient This patient is new to me today: Yes Date on this admission: 03/09/17 - Critical Care Critical Care patient: Yes Total Critical Care Time (in minutes): 40 Critical Care Statement: The care of this patient involved high complexity decision making to prevent further life threatening deterioration of the patient 's condition and/or to evaluate & treat vital organ system(s) failure or risk of failure.
[2017-03-09] MEDS ORDERED: HEMOQUE TEST 1 EACH EACH ONE (15:30)
[2017-03-09] MEDS ORDERED: INSULIN DETEMIR 100 UNITS/ML MDV SQ SCH (16:30)
--- NOTE | 2017-03-09 17:30 | PN ---
Teaching Attending Note Name of Resident: Gisele Sy ATTENDING PHYSICIAN STATEMENT I saw and evaluated the patient. I reviewed the resident's note and discussed the case with the resident. I agree with the resident's findings and plan as documented. SUBJECTIVE: Patient seen and examined. Denies any nausea, vomiting, eating well. mild suprapubic discomfort. No urinary symptoms. OBJECTIVE: Vital Signs Period Temp Pulse Resp BP Sys/Hwang Pulse Ox Last 24 Hr 98.4 F-98.7 F 80-106 12-23 94-128/54-89 100 Intake & Output 03/06/17 03/07/17 03/08/17 03/09/17 23:59 23:59 23:59 23:59 Intake Total 678 950 Balance 678 950 Weight 102 lb 109 lb 3 oz General lying in bed in no acute distress CVS S1S2 regular Chest CTAB, no rales or wheezing abdomen mild suprapubic tenderness, soft, ND, positive bowel sounds, no CVA tenderness Extremities no edema Current Medications Cefpodoxime Proxetil (Vantin (Nf) -) 100 mg PO BID [facility] Chlorhexidine Gluconate (Hibiclens For Decolonization -) 1 applic TP HS [facility] Last Admin: 03/08/17 22:00 Dose: 1 applic Enoxaparin Sodium (Lovenox -) 40 mg SQ DAILY [facility] Last Admin: 03/09/17 10:50 Dose: 40 mg Sodium Chloride (1/2 Normal Saline) 1,000 mls @ 50 mls/hr IV ASDIR [facility] Stop: 03/09/17 20:55 Last Admin: 03/08/17 22:00 Dose: 50 mls/hr Insulin Aspart (Novolog Vial Sliding Scale -) 1 vial SQ ACHS [facility] PRN Reason: Protocol Last Admin: 03/09/17 06:00 Dose: 4 units Insulin Detemir (Levemir Vial) 15 units SQ BID@0700,2200 CADEN Mupirocin (Bactroban Ointment (For Decolonization) -) 1 applic NS BID [facility] Stop: 03/13/17 21:59 Last Admin: 03/09/17 10:52 Dose: 1 applic Laboratory Results - last 24 hr 03/08/17 03/08/17 03/08/17 09:17 12:30 15:19 WBC RBC Hgb Hct MCV MCH MCHC RDW Plt Count MPV Sodium Potassium Chloride Carbon Dioxide Anion Gap BUN Creatinine Creat Clearance w eGFR POC Glucometer 342.86317 323.07794 Random Glucose Calcium Phosphorus Magnesium Total Bilirubin AST ALT Alkaline Phosphatase Total Protein Albumin Urine Color Lt. yellow Urine Appearance Clear Urine pH 5.5 Ur Specific [place] 1.010 Urine Protein Negative Urine Glucose (UA) 3+ H Urine Ketones 3+ H Urine Blood 1+ H Urine Nitrite Positive Urine Bilirubin Negative Urine Urobilinogen 0.2 Ur Leukocyte Esterase Negative Urine RBC <1 Urine WBC 9 Ur Epithelial Cells Few Urine Bacteria Moderate Urine Mucus Rare 03/08/17 03/08/17 03/08/17 16:50 18:13 18:30 WBC RBC Hgb Hct MCV MCH MCHC RDW Plt Count MPV Sodium 141 Potassium 3.8 Chloride 109 H Carbon Dioxide 22 D Anion Gap 10 BUN 11 Creatinine 0.6 Creat Clearance w eGFR POC Glucometer 215.26916 132.64680 Random Glucose 89 D Calcium 7.5 L Phosphorus Magnesium Total Bilirubin AST ALT Alkaline Phosphatase Total Protein Albumin Urine Color Urine Appearance Urine pH Ur Specific [place] Urine Protein Urine Glucose (UA) Urine Ketones Urine Blood Urine Nitrite Urine Bilirubin Urine Urobilinogen Ur Leukocyte Esterase Urine RBC Urine WBC Ur Epithelial Cells Urine Bacteria Urine Mucus 03/09/17 03/09/17 03/09/17 02:04 05:57 06:20 WBC 9.5 D RBC 3.23 L Hgb 9.9 L Hct 29.0 L MCV 89.7 MCH 30.7 MCHC 34.3 RDW 14.5 Plt Count 211 MPV 9.2 Sodium Potassium Chloride Carbon Dioxide Anion Gap BUN Creatinine Creat Clearance w eGFR POC Glucometer 72.59476 228.23945 Random Glucose Calcium Phosphorus Magnesium Total Bilirubin AST ALT Alkaline Phosphatase Total Protein Albumin Urine Color Urine Appearance Urine pH Ur Specific [place] Urine Protein Urine Glucose (UA) Urine Ketones Urine Blood Urine Nitrite Urine Bilirubin Urine Urobilinogen Ur Leukocyte Esterase Urine RBC Urine WBC Ur Epithelial Cells Urine Bacteria Urine Mucus 03/09/17 03/09/17 03/09/17 06:20 12:23 13:00 WBC RBC Hgb Hct MCV MCH MCHC RDW Plt Count MPV Sodium 138 134 L Potassium 3.7 4.2 Chloride 105 101 Carbon Dioxide 24 25 Anion Gap 9 8 BUN 9 8 Creatinine 0.6 0.6 Creat Clearance w eGFR > 60 POC Glucometer > 400 Random Glucose 148 H D 363 H* D Calcium 7.5 L 7.9 L Phosphorus 2.5 Magnesium 1.8 Total Bilirubin 0.4 AST 14 L D ALT 20 Alkaline Phosphatase 70 Total Protein 5.8 L Albumin 2.7 L Urine Color Urine Appearance Urine pH Ur Specific [place] Urine Protein Urine Glucose (UA) Urine Ketones Urine Blood Urine Nitrite Urine Bilirubin Urine Urobilinogen Ur Leukocyte Esterase Urine RBC Urine WBC Ur Epithelial Cells Urine Bacteria Urine Mucus 03/09/17 15:34 WBC RBC Hgb Hct MCV MCH MCHC RDW Plt Count MPV Sodium Potassium Chloride Carbon Dioxide Anion Gap BUN Creatinine Creat Clearance w eGFR POC Glucometer 340.27526 Random Glucose Calcium Phosphorus Magnesium Total Bilirubin AST ALT Alkaline Phosphatase Total Protein Albumin Urine Color Urine Appearance Urine pH Ur Specific [place] Urine Protein Urine Glucose (UA) Urine Ketones Urine Blood Urine Nitrite Urine Bilirubin Urine Urobilinogen Ur Leukocyte Esterase Urine RBC Urine WBC Ur Epithelial Cells Urine Bacteria Urine Mucus ASSESSMENT AND PLAN: -DKA -Acute uncomplicated cystitis -IDDM Plan: DKA resolved, anion gap closed. Give levemir 15 units now and increase dose to 15 units BID. ISS. Monitor blood sugars q4-6 hours. Discussed with outpatient tow bar driver patient getting 25 units basal coverage from the pump and coverage based on carb counting. Unable to d/c on pump currently. Will aim to d/c on levemir with Sliding scale and outpatient endocrine follow up in 1 week and home blood sugar checks. Change to cefpodoxime, follow up urine cultures. Plan for d/c in 24 hours if blood sugars improved and no new concerns.
[2017-03-09] MEDS: INSULIN DETEMIR 100 UNITS/ML MDV SQ SCH (21:33)
[2017-03-09] MEDS: CHLORHEXIDINE GLUCONATE 4% CLEANSER FOR DECOLONIZATION TP SCH (21:33)
[2017-03-09] MEDS: CEFPODOXIME PROXETIL 100 MG TABLET PO SCH (21:34)
[2017-03-10] MEDS ORDERED: LEVOFLOXACIN 750 MG TABLET PO SCH (06:00)
[2017-03-10 06:22] LABS: BASOPHIL 0.4 % (0-2.0); EOSINOPHIL 2.4 % (0-4.5); MCH 30.6 pg (25.7-33.7); MCHC 33.9 g/dl (32.0-36.0); MEAN CELL VOLUME 90.3 fl (80-96); MEAN PLT VOLUME 9.1 fl (7.5-11.1); NEUTROPHILS 37.1 % (42.8-82.8); PLATELET COUNT 209 K/MM3 (134-434); RDW 14.6 % (11.6-15.6)
[2017-03-10 06:31] LABS: ANION GAP 9 (8-16); CALCIUM 8.5 mg/dL (8.5-10.1); CO2 25 mmol/L (21-32); CREATININE 0.5 mg/dL (0.55-1.02); GLUCOSE,RANDOM 61 mg/dL (74-106)
[2017-03-10] MEDS: INSULIN SLIDING SCALE (NOVOLOG) 1 VIAL SQ SCH ×2 (06:35→12:03)
[2017-03-10] MEDS ORDERED: INSULIN DETEMIR 100 UNITS/ML MDV SQ ONE ×2 (09:18→12:00)
[2017-03-10] MEDS: CEFPODOXIME PROXETIL 100 MG TABLET PO SCH (09:31)
[2017-03-10] MEDS: ENOXAPARIN NA (PORCINE) 40 MG/0.4 ML DISP.SYRIN SQ SCH (09:31)
--- NOTE | 2017-03-10 09:49 | PN ---
Progress Note (short form) - Note Progress Note: Feels overall better. AG remains closed and blood sugars have improved. Intake & Output 03/07/17 03/08/17 03/09/17 03/10/17 23:59 23:59 23:59 23:59 Intake Total 678 1950 200 Balance 678 1950 200 Weight 102 lb 109 lb 3 oz 109 lb Last Vital Signs Temp Pulse Resp BP Pulse Ox 98.2 F 86 19 136/94 100 03/10/17 02:00 03/10/17 08:00 03/10/17 08:28 03/10/17 08:00 03/10/17 08:28 Active Medications Cefpodoxime Proxetil (Vantin (Nf) -) 100 mg PO BID [facility] Last Admin: 03/10/17 09:31 Dose: 100 mg Chlorhexidine Gluconate (Hibiclens For Decolonization -) 1 applic TP HS [facility] Last Admin: 03/09/17 21:33 Dose: 1 applic Enoxaparin Sodium (Lovenox -) 40 mg SQ DAILY [facility] Last Admin: 03/10/17 09:31 Dose: 40 mg Insulin Aspart (Novolog Vial Sliding Scale -) 1 vial SQ ACHS [facility] PRN Reason: Protocol Last Admin: 03/10/17 06:35 Dose: Not Given Insulin Detemir (Levemir Vial) 15 units SQ BID@0700,2200 [facility] Last Admin: 03/09/17 21:33 Dose: 15 units Mupirocin (Bactroban Ointment (For Decolonization) -) 1 applic NS BID [facility] Stop: 03/13/17 21:59 Last Admin: 03/09/17 21:35 Dose: 1 applic Constitutional: Yes: No Distress, Thin Eyes: Yes: WNL HENT: Yes: WNL Neck: Yes: WNL, Supple Cardiovascular: Yes: Regular Rate and Rhythm Respiratory: Yes: Regular, CTA Bilaterally Gastrointestinal: Yes: Normal Bowel Sounds, Soft Renal/: Yes: WNL Extremities: Yes: WNL Edema: No Peripheral Pulses WNL: Yes Neurological: Yes: Alert, Oriented ...Motor Strength: LUE, LLE, RUE, RLE Psychiatric: Yes: WNL, Alert, Oriented Labs: Problem List - Problems (1) DKA (diabetic ketoacidoses) Code(s): E13.10 - OTH DIABETES MELLITUS WITH KETOACIDOSIS WITHOUT COMA Qualifiers: Diabetes mellitus type: type 1 Diabetes mellitus complication detail: without coma Qualified Code(s): E10.10 - Type 1 diabetes mellitus with ketoacidosis without coma; E10.10 - Type 1 diabetes mellitus with ketoacidosis without coma; E10.10 - Type 1 diabetes mellitus with ketoacidosis without coma; E10.10 - Type 1 diabetes mellitus with ketoacidosis without coma (2) Pyelonephritis Code(s): N12 - TUBULO-INTERSTITIAL NEPHRITIS, NOT SPCF ACUTE OR CHRONIC Assessment/Plan Patient to follow with her Computer Technology Teacher at [facility] Current medication regimen D/C planning Dr Greenberg
[2017-03-10] MEDS: MUPIROCIN 2% TOPICAL OINTMENT FOR DECOLONIZATION NS SCH (12:20)
[2017-03-10] MEDS: INSULIN DETEMIR 100 UNITS/ML MDV SQ SCH (12:21)
--- NOTE | 2017-03-10 13:55 | PN ---
Teaching Attending Note Name of Resident: Gisele Sy ATTENDING PHYSICIAN STATEMENT I saw and evaluated the patient. I reviewed the resident's note and discussed the case with the resident. I agree with the resident's findings and plan as documented. SUBJECTIVE: patient seen and examined. no complaints, suprapubic pain resolved, tolerating diet well. OBJECTIVE: Vital Signs Period Temp Pulse Resp BP Sys/Hwang Pulse Ox Last 24 Hr 97.9 F-98.6 F 73-89 17-22 106-136/76-94 100-100 Intake & Output 03/07/17 03/08/17 03/09/17 03/10/17 23:59 23:59 23:59 23:59 Intake Total 678 1950 200 Balance 678 1950 200 Weight 102 lb 109 lb 3 oz 109 lb General: sitting bed in no acute distress CVS S1S2 regular Chest CTAB, no rales or wheezing Abdomen soft, NT, ND, positive bowel sounds, no suprapubic or CVA tenderness Extremities no edema Current Medications Cefpodoxime Proxetil (Vantin (Nf) -) 100 mg PO BID [facility] Last Admin: 03/10/17 09:31 Dose: 100 mg Chlorhexidine Gluconate (Hibiclens For Decolonization -) 1 applic TP HS [facility] Last Admin: 03/09/17 21:33 Dose: 1 applic Enoxaparin Sodium (Lovenox -) 40 mg SQ DAILY [facility] Last Admin: 03/10/17 09:31 Dose: 40 mg Insulin Aspart (Novolog Vial Sliding Scale -) 1 vial SQ ACHS [facility] PRN Reason: Protocol Last Admin: 03/10/17 12:03 Dose: 10 units Insulin Detemir (Levemir Vial) 15 units SQ BID@0700,2200 [facility] Last Admin: 03/10/17 12:21 Dose: Not Given Mupirocin (Bactroban Ointment (For Decolonization) -) 1 applic NS BID [facility] Stop: 03/13/17 21:59 Last Admin: 03/10/17 12:20 Dose: 1 applic Laboratory Results - last 24 hr 03/08/17 03/08/17 03/09/17 21:05 21:57 02:04 WBC RBC Hgb Hct MCV MCH MCHC RDW Plt Count MPV Neutrophils % Lymphocytes % Monocytes % Eosinophils % Basophils % Sodium Potassium Chloride Carbon Dioxide Anion Gap BUN Creatinine POC Glucometer 213.65107 182.15411 72.20720 Random Glucose Hemoglobin A1c % Calcium 03/09/17 03/09/17 03/09/17 05:57 06:20 12:23 WBC RBC Hgb Hct MCV MCH MCHC RDW Plt Count MPV Neutrophils % Lymphocytes % Monocytes % Eosinophils % Basophils % Sodium Potassium Chloride Carbon Dioxide Anion Gap BUN Creatinine POC Glucometer 228.00011 > 400 Random Glucose Hemoglobin A1c % 12.6 H Calcium 03/09/17 03/09/17 03/10/17 13:00 15:34 05:05 WBC 5.0 D RBC 3.47 L Hgb 10.6 L Hct 31.3 L MCV 90.3 MCH 30.6 MCHC 33.9 RDW 14.6 Plt Count 209 MPV 9.1 Neutrophils % 37.1 L D Lymphocytes % 51.1 H D Monocytes % 9.0 Eosinophils % 2.4 D Basophils % 0.4 Sodium 134 L Potassium 4.2 Chloride 101 Carbon Dioxide 25 Anion Gap 8 BUN 8 Creatinine 0.6 POC Glucometer 340.06904 Random Glucose 363 H* D Hemoglobin A1c % Calcium 7.9 L 03/10/17 05:05 WBC RBC Hgb Hct MCV MCH MCHC RDW Plt Count MPV Neutrophils % Lymphocytes % Monocytes % Eosinophils % Basophils % Sodium 144 Potassium 3.6 Chloride 110 H Carbon Dioxide 25 Anion Gap 9 BUN 6 L D Creatinine 0.5 L POC Glucometer Random Glucose 61 L D Hemoglobin A1c % Calcium 8.5 ASSESSMENT AND PLAN: -DKA -Acute uncomplicated cystitis -IDDM Plan: blood sugars improved, Patient prior on Lantus 28 units before the pump. Concerns for pump dysfunction on admission. Will d/c on levemir 15 units BID and ISS. Diabetic education has been provided. Patient well aware of insulin administration and blood sugar checks. Also relayed that her physicist nuclear would prefer her to go back on the pump. Advise close outpatient follow up and defer further DM management to outpatient physicist nuclear. Discussed with patient in detail, all questions answered. D/c home today. keflex for total 7 day course.
[2017-03-10 14:37] VITALS: BP 112/71; PULSE 79; TEMP 99.4
--- NOTE | 2017-03-10 15:40 | DS ---
Physical Exam: SUBJECTIVE: Patient seen and examined. Doing better this AM. Feels better, less weak, no abdominal tenderness OBJECTIVE: Vital Signs Period Temp Pulse Resp BP Sys/Hwang Pulse Ox Last 24 Hr 97.9 F-99.4 F 73-89 17-22 106-136/71-94 100-100 PHYSICAL EXAM GEN: AAOx3, NAD, Lying in bed, less weak today, conversing well HEENT: PERRLA, EOMi CV: S1, S2, RRR, No murmurs LUNG: CTABL ABD: Soft, moderate discomfort in suprapubic region MSK: No edema, no erythema NEURO: Neurologically intact, CN 2-12 intact, no MSK or sensation deficits. LABS Laboratory Last Values WBC 5.0 K/mm3 (4.0-10.0) D 03/10/17 05:05 RBC 3.47 M/mm3 (3.60-5.2) L 03/10/17 05:05 Hgb 10.6 GM/dL (10.7-15.3) L 03/10/17 05:05 Hct 31.3 % (32.4-45.2) L 03/10/17 05:05 MCV 90.3 fl (80-96) 03/10/17 05:05 MCH 30.6 pg (25.7-33.7) 03/10/17 05:05 MCHC 33.9 g/dl (32.0-36.0) 03/10/17 05:05 RDW 14.6 % (11.6-15.6) 03/10/17 05:05 Plt Count 209 K/MM3 (134-434) 03/10/17 05:05 MPV 9.1 fl (7.5-11.1) 03/10/17 05:05 Neutrophils % 37.1 % (42.8-82.8) L D 03/10/17 05:05 Lymphocytes % 51.1 % (8-40) H D 03/10/17 05:05 Monocytes % 9.0 % (3.8-10.2) 03/10/17 05:05 Eosinophils % 2.4 % (0-4.5) D 03/10/17 05:05 Basophils % 0.4 % (0-2.0) 03/10/17 05:05 PT with INR 10.00 SEC (9.98-11.88) 03/08/17 09:05 INR 0.88 (0.82-1.09) 03/08/17 09:05 Puncture Site Right radial 03/08/17 15:00 ABG pH 7.29 (7.35-7.45) L 03/08/17 15:00 ABG pCO2 at Pt Temp 33.5 mmHg (35-45) L 03/08/17 15:00 ABG pO2 at Pt Temp 102.0 mmHg (80-100) H 03/08/17 15:00 ABG HCO3 15.5 meq/L (22-26) L 03/08/17 15:00 ABG O2 Sat (Measured) 98.2 % (90-98.9) 03/08/17 15:00 ABG O2 Content 12.9 % vol (15-22) L 03/08/17 15:00 ABG Base Excess -9.8 meq/l (-2-2) L 03/08/17 15:00 Magno Test Positive 03/08/17 15:00 VBG pH 7.35 (7.32-7.42) 03/08/17 09:17 POC VBG pCO2 43.5 mmHg (38-52) 03/08/17 09:17 POC VBG pO2 53.8 mmHg (28-48) H 03/08/17 09:17 Mixed VBG HCO3 23.5 meq/L (19-25) 03/08/17 09:17 Carboxyhemoglobin 1.5 gm% (0.5-2.0) 03/08/17 15:00 Methemoglobin 0.5 % (0.4-1.5) 03/08/17 15:00 O2 Delivery Device R/a 03/08/17 15:00 Oxygen Flow Rate 21% 03/08/17 15:00 PEEP 0.0 cmH2O 03/08/17 15:00 Sodium 144 mmol/L (136-145) 03/10/17 05:05 Potassium 3.6 mmol/L (3.5-5.1) 03/10/17 05:05 Chloride 110 mmol/L (98-107) H 03/10/17 05:05 Carbon Dioxide 25 mmol/L (21-32) 03/10/17 05:05 Anion Gap 9 (8-16) 03/10/17 05:05 BUN 6 mg/dL (7-18) L D 03/10/17 05:05 Creatinine 0.5 mg/dL (0.55-1.02) L 03/10/17 05:05 Creat Clearance w eGFR > 60 (>60) 03/09/17 06:20 POC Glucometer [phone] UNITS (()) 03/09/17 15:34 Random Glucose 61 mg/dL (74-106) L D 03/10/17 05:05 Hemoglobin A1c % 12.6 % (4.8-6.0) H 03/09/17 06:20 Lactic Acid 1.1 mmol/L (0.4-2.0) 03/08/17 09:05 Calcium 8.5 mg/dL (8.5-10.1) 03/10/17 05:05 Phosphorus 2.5 mg/dL (2.5-4.9) 03/09/17 06:20 Magnesium 1.8 mg/dL (1.8-2.4) 03/09/17 06:20 Total Bilirubin 0.4 mg/dL (0.2-1.0) 03/09/17 06:20 AST 14 U/L (15-37) L D 03/09/17 06:20 ALT 20 U/L (12-78) 03/09/17 06:20 Alkaline Phosphatase 70 U/L (45-117) 03/09/17 06:20 Creatine Kinase 79 IU/L (26-192) 03/08/17 16:00 Troponin I < 0.02 ng/ml (0.00-0.05) 03/08/17 16:00 Total Protein 5.8 g/dl (6.4-8.2) L 03/09/17 06:20 Albumin 2.7 g/dl (3.4-5.0) L 03/09/17 06:20 Serum , Qual Negative 03/08/17 09:26 Urine Color Lt. yellow 03/08/17 09:17 Urine Appearance Clear 03/08/17 09:17 Urine pH 5.5 (5.0-8.0) 03/08/17 09:17 Ur Specific Abie 1.010 (1.005-1.025) 03/08/17 09:17 Urine Protein Negative (NEGATIVE) 03/08/17 09:17 Urine Glucose (UA) 3+ (NEGATIVE) H 03/08/17 09:17 Urine Ketones 3+ (NEGATIVE) H 03/08/17 09:17 Urine Blood 1+ (NEGATIVE) H 03/08/17 09:17 Urine Nitrite Positive (NEGATIVE) 03/08/17 09:17 Urine Bilirubin Negative (NEGATIVE) 03/08/17 09:17 Urine Urobilinogen 0.2 mg/dL (0.2-1.0) 03/08/17 09:17 Ur Leukocyte Esterase Negative (NEGATIVE) 03/08/17 09:17 Urine RBC <1 /hpf (0-3) 03/08/17 09:17 Urine WBC 9 /hpf (3-5) 03/08/17 09:17 Ur Epithelial Cells Few /hpf (FEW) 03/08/17 09:17 Urine Bacteria Moderate /hpf (NONE SEEN) 03/08/17 09:17 Urine Mucus Rare 03/08/17 09:17 Urine HCG, Qual Negative 03/08/17 09:34 Acetone, Qual Positive moderate 2+ (NEGATIVE) H 03/08/17 12:10 HOSPITAL COURSE: Date of Admission:03/08/17 Date of Discharge: 03/10/17 Briefly, Ms. Hinson is a 26yo F with PMHx of Type 1 DM (on insulin pump), w/ numerous admissions to [facility] in the past for DKA who presented to the ED because of an abnormally high glucose read. She awoke from bed, felt "tired", and noted her insulin pump was disconnected. Her BGM at that time was in the 600s. She put the pump back in and administered some insulin, and upon recheck her BGM was unreadably high. She has recent stressors (upcoming midterm exam), and was found to have an incidental clark-sensitive UTI that was treated with antibiotics. She was noted to be in DKA with a sugar of 503, AG of 16, ketones in urine/serum, and metabolic acidosis. She was treated in the ICU on an insulin drip using the standard DKA protocol. Her gap eventually closed, and she was started on SQ insulin. Her sugars were well managed on Levemir 15u BID and sliding scale insulin. The patient is aware of the hospital course and agrees with the plan to be discharged home and followup with her crew leader who was notified about her admission. Minutes to complete discharge: 45 Discharge Summary Reason For Visit: DIABETIC KETOACIDOSIS,PYELONEPHRITIS Condition: Improved - Instructions Diet, Activity, Other Instructions: RECOMMENDATIONS - Your diabetes is not well controlled. - Please follow a low sugar diet - Please check your fingersticks before meals and at bedtime, and write down your numbers - We encourage healthy stress-relief relaxation during your midterm season NEW MEDICATIONS - Levemir 15 units two times a day - Novolog Sliding Scale Insulin, check your fingerstick before meals and bedtime, give insulin as follows: Glucose Insulin < 150 0 units 151 - 200 2 units 201 - 250 4 units 251 - 300 6 units 301 - 350 8 units 351 - 400 10 units > 400 12 units and call MD - Keflex (Cephalexin) - 500mg tablet two times a day for 4 more days - Follow up wth your crew leader for insulin pump resumption. Use above insulin regimen with close blood sugar checks till go back on the pump. FOLLOWUPS: - Dr. Ramiro Castañeda - crew leader, ideally in 1 week - Dr. Ryanne Kearns - primary care provider in 1 week If you experience any serious symptoms of severe chest pain, shortness of breath , fevers, inability to eat or any new concerns, please report back to the ER. Referrals: Ramiro Castañeda [Other] - 1 Week ( ) Ryanne Kearns [Other] - 1 Week Disposition: HOME - Home Medications Comprehensive Discharge Medication List: Ambulatory Orders Blood Sugar Diagnostic [Blood Glucose Test Strip] 1 each MC DAILY #60 strip Cephalexin [Keflex] 500 mg PO BID #8 capsule 03/10/17 Insulin (Levemir) [Levemir Vial] 15 units SQ BID #1 vial 03/10/17 Insulin Pump/Infus. Set/Meter [Accu-Chek Combo System] 1 each MC ASDIR #1 each 03/10/17 Insulin Sliding Scale [Novolog Vial Sliding Scale -] See Protocol SQ ACHS #30 units 03/10/17 - Discharge Referral Referred to [facility] No
== END 2017-03-10 14:40 | disposition home or self-care (01) | DRG 813 ==
LOC: JER 08:23 → JERBED 13:37 → JICU 18:40
PROVIDERS: ADMIT Internal Medicine; ATTEND Hospitalist
DX: T85.624A Displacement of insulin pump, initial encounter (principal); E87.1 Hypo-osmolality and hyponatremia; N12 Tubulo-interstitial nephritis, not specified as acute or chronic; E10.10 Type 1 diabetes mellitus with ketoacidosis without coma; Z79.4 Long term (current) use of insulin
CPT/HCPCS: 36415; 36600; 71020-TC; 80048; 80053; 81003; 81015; 82009; 82375; 82550; 82803; 83036; 83050; 83605; 83735; 84100; 84484; 84703; 85025; 85027; 85610; 87086; 87186; 90688; 90732; 93005; 93010; 99285-25; G0008; G0009

== ENCOUNTER 2017-04-07 09:58 | Inpatient (IN) | payer OTHER ==
[2017-04-07] MEDS ORDERED: SODIUM CHLORIDE 1,000 ML IV STA ×2 (10:25)
[2017-04-07] MEDS ORDERED: ONDANSETRON 4 MG/2 ML VIAL IVPB ONE (10:25)
[2017-04-07] MEDS ORDERED: FAMOTIDINE 20 MG/50 ML IVPB 20 MG/50 ML MG IVPB ONE ×2 (10:27→10:49)
[2017-04-07] MEDS ORDERED: ONDANSETRON 4 MG/2 ML VIAL ONE (10:48)
--- NOTE | 2017-04-07 10:48 | PDOC ---
History of Present Illness - General History Source: Patient Exam Limitations: No Limitations, Other - History of Present Illness Initial Comments: 04/07/17 11:38 The patient is a 26 year old female with a significant PMH of Type 1 Diabetes who presents to the emergency department with episodes of bloody vomit. The patient notes that she has vomited a total of 10 times, first 5 episodes were normal, food from the night before followed by bloody episodes. The patient states that her humalog pump is working fine. There was difficulty obtaining information from her due to constant vomiting at presentation. The patient denies chest pain, shortness of breath, headache and dizziness. Denies fever, chills, diarrhea and constipation. Denies dysuria, frequency, urgency and hematuria. Allergies: NKA Past surgical history: None reported. Social history: No reported toxic use. 04/07/17 19:42 <Ora Middleton - Last Filed: 04/07/17 19:42> <Donald Garcia - Last Filed: 04/07/17 20:07> - General Chief Complaint: Nausea/Vomiting Stated Complaint: VOMITING/DIABETIC Time Seen by Provider: 04/07/17 10:18 Past History <Ora Middleton - Last Filed: 04/07/17 19:42> - Past Medical History Diabetes: Yes (type 1 on insulin pump) - Surgical History Cholecystectomy: Yes - Suicide/Smoking/Psychosocial Hx Smoking History: Never smoked Have you smoked in the past 12 months: No Hx Alcohol Use: No Drug/Substance Use Hx: No Substance Use Type: None <Donald Garcia - Last Filed: 04/07/17 20:07> - Past Medical History Allergies/Adverse Reactions: Allergies Allergy/AdvReac Type Severity Reaction Status Date / Time No Known Allergies Allergy Verified 03/08/17 08:36 Home Medications: Ambulatory Orders Blood Sugar Diagnostic [Blood Glucose Test Strip] 1 each MC DAILY #60 strip Cephalexin [Keflex] 500 mg PO BID #8 capsule 03/10/17 Insulin (Levemir) [Levemir Vial] 15 units SQ BID #1 vial 03/10/17 Insulin Pump/Infus. Set/Meter [Accu-Chek Combo System] 1 each MC ASDIR #1 each 03/10/17 Insulin Sliding Scale [Novolog Vial Sliding Scale -] See Protocol SQ ACHS #30 units 10/28/17 Review of Systems - Review of Systems Able to Perform ROS?: Yes Comments:: 04/07/17 11:22 A complete review of 10 out of 10 review of systems is taken and is negative apart from what is previously mentioned below and in the HPI. <Ora Middleton - Last Filed: 04/07/17 19:42> *Physical Exam - Physical Exam Comments: 04/07/17 15:02 Vitals: Triage Vital signs reviewed General Appearance: well nourished well developed, Head: Atraumatic, normocephalic Eyes: Pupils equal reactive round, extraocular movement intact Neck: Supple;No Nuchal rigidity Chest Wall: Nontender Cardiac: Regular rate and rhythm, no murmurs, no rubs, no gallops, Lungs: Clear to auscultation bilateral, good air movement bilaterally, Abdomen: (+) Upper abdominal discomfort. Normal bowel sounds. Extremities: Full range of motion to all extremities, no cyanosis, clubbing, or edema Skin: Warm and dry, no rashes or lesions, no petechiae Neuro: AOX3; Cranial Nerves 2-12 grossly intact. Psych: normal mood, normal affect <Ora Middleton - Last Filed: 04/07/17 19:42> Procedures - Central Line Central Line Lumen: triple Central Line Position: internal jugular (R) Anesthesia: 1% Lidocaine Complications: none Post Central Line Insertion: sutured, good blood return, position confirmed w/ CXR <Donald Garcia - Last Filed: 04/07/17 20:07> Heart Score/ECG Review #1 04/07/17 11:21 EKG performed at [11:14] demonstrates rate of [119], rhythm of [Sinus Tachycardia], axis equal to [normal]. no T wave inversions, no ST elevations <Ora Middleton - Last Filed: 04/07/17 19:42> ED Treatment Course - LABORATORY CBC & Chemistry Diagram: 04/07/17 10:45 04/07/17 17:38 - ADDITIONAL ORDERS Additional order review: 04/07/17 10:45 RBC 3.93 MCV 97.8 H D MCHC 30.7 L RDW 15.4 MPV 9.5 Neutrophils % 89.9 H D Lymphocytes % 4.6 L D Monocytes % 5.4 Eosinophils % 0.0 D Basophils % 0.1 - Medications Given in the ED: ED Medications Discontinued Medications Generic Name Dose Route Start Last Admin Trade Name Jing PRN Reason Stop Dose Admin Famotidine/Sodium Chloride 20 mg in 50 mls @ 100 mls/hr 04/07/17 10:27 10:30 Pepcid 20 Mg Premixed Ivpb - IVPB 04/07/17 10:56 100 mls/hr ONCE ONE Administration Ondansetron HCl 8 mg 04/07/17 10:25 04/07/17 10:30 Zofran Injection IVPB 04/07/17 10:26 8 mg ONCE ONE Administration <Ora Middleton - Last Filed: 04/07/17 19:42> - LABORATORY CBC & Chemistry Diagram: 04/07/17 18:40 04/07/17 18:40 <Donald Garcia - Last Filed: 04/07/17 20:07> Medical Decision Making - Medical Decision Making Exam: Chest XR Who interpreted: Dr. Gallegos Reviewed by: Dr. Garcia Impression: No acute pathology. No significant change since 03/08/2017. <Ora Middleton - Last Filed: 04/07/17 19:42> - Critical Care Time Total Critical Care Time (minutes): 65 Critical Care Statement: The care of this patient involved high complexity decision making to prevent further life threatening deterioration of the patient 's condition and/or to evaluate & treat vital organ system(s) failure or risk of failure. - Medical Decision Making 04/07/17 12:40 History examination consistent with DKA. Patient's insulin pump turned off patient started on insulin drip. Given abdominal discomfort CT abdomen and pelvis ordered We'll admit to ICU for further management. 04/07/17 19:39 Pt. started on insulin drip ICU aware CT abdomen and pelvis to rule out other pathology no pathology noted Given need for IV fluids and multiple drips patient consented for central line Central line placement no complications see procedure note <Donald Garcia - Last Filed: 04/07/17 20:07> *DC/Admit/Observation/Transfer - Attestations Scribe Attestion: 04/07/17 15:04 Documentation prepared by Ora Middleton, acting as medical reception for Donald Garcia MD. <Ora Middleton - Last Filed: 04/07/17 19:42> - Discharge Dispostion Admit: Yes <Donald Garcia - Last Filed: 04/07/17 20:07> Diagnosis at time of Disposition: DKA (diabetic ketoacidoses) Qualifiers: Diabetes mellitus type: other specified (including ADOLFO) Diabetes mellitus complication detail: without coma Qualified Code(s): E13.10 - Other specified diabetes mellitus with ketoacidosis without coma
[2017-04-07 10:56] LABS: BASOPHIL 0.1 % (0-2.0); MCHC 30.7 g/dl (32.0-36.0); MEAN CELL VOLUME 97.8 fl (80-96); MEAN PLT VOLUME 9.5 fl (7.5-11.1); NEUTROPHILS 89.9 % (42.8-82.8); PLATELET COUNT 265 K/MM3 (134-434); RDW 15.4 % (11.6-15.6); WHITE BLOOD COUNT 17.2 K/mm3 (4.0-10.0)
[2017-04-07 11:06] LABS: URINE APPEARANCE CLEAR; URINE BILIRUBIN NEGATIVE (NEGATIVE); URINE BLOOD 1+ (NEGATIVE); URINE COLOR STRAW; URINE GLUCOSE (UA) 3+ (NEGATIVE); URINE KETONE 2+ (NEGATIVE); URINE NITRITE NEGATIVE (NEGATIVE); URINE PROTEIN NEGATIVE (NEGATIVE); URINE UROBILINOGEN NEGATIVE mg/dL (0.2-1.0)
[2017-04-07 11:30] LABS: URINE MUCUS RARE; URINE RBC <1 /hpf (0-3); URINE WBC 2 /hpf (3-5)
[2017-04-07 11:49] LABS: ALBUMIN 3.9 g/dl (3.4-5.0); ANION GAP 27 (8-16); CALCIUM 9.3 mg/dL (8.5-10.1); CO2 9 mmol/L (21-32); CREATININE 1.4 mg/dL (0.55-1.02); SGOT/AST 35 U/L (15-37); SGPT/ALT 30 U/L (12-78)
[2017-04-07 11:50] LABS: ALK PHOS 112 U/L (45-117); BILIRUBIN,TOTAL 0.9 mg/dL (0.2-1.0); TOT PROT 8.1 g/dl (6.4-8.2)
[2017-04-07 11:53] LABS: GLUCOSE,RANDOM 763 mg/dL (74-106)
[2017-04-07] MEDS ORDERED: SODIUM CHLORIDE 0.9% 1000 ML INFUS.BAG IV ONE (11:57)
[2017-04-07] MEDS ORDERED: METOCLOPRAMIDE HCL INJECTION 10 MG/2 ML VIAL IVPUSH ONE (11:57)
[2017-04-07] MEDS ORDERED: INSULIN REGULAR 100 UNITS in SODIUM CHLORIDE 99 ML IVPB SCH (12:00)
[2017-04-07 12:04] LABS: ARTERIAL BLD GAS O2 SATURATION 97.1 % (90-98.9); ARTERIAL BLOOD GAS BASE EXCESS -21.9 meq/l (-2-2); ARTERIAL BLOOD GAS HCO3 6.5 meq/L (22-26)
[2017-04-07 12:09] LABS: ALLENS TEST POSITIVE; ART PUNCT SITE LEFT RADIAL
[2017-04-07 12:10] LABS: PT. ON O2? 120; TYPE OF O2 ROOM AIR
[2017-04-07 12:11] LABS: METHEMOGLOBIN 0.8 % (0.4-1.5)
[2017-04-07] MEDS ORDERED: METOCLOPRAMIDE HCL INJECTION 10 MG/2 ML VIAL ONE (12:15)
[2017-04-07 12:41] VITALS: BMI 16.9
--- NOTE | 2017-04-07 12:49 | HP ---
CHIEF COMPLAINT: n/v PCP: HISTORY OF PRESENT ILLNESS: This is a 26 year old female with a past medical history of diabetes type I, on insulin pump with complaints of nausea and vomiting (x10) and abdominal pain since this early this morning. After multiple episodes of vomiting patient endorses red/brown blood in vomit. Amount unknown. Patient denies associated symptoms including MIRELES, blurry vision, chest pain, palpitations, shortness dysuria, diarrhea, hematochezia, melena. She was recently discharged on 03/10 for DKA and urinary tract infection, sent home on keflex. Does admit to intermittent alcohol use, last drink was yesterday, one half glass of red wine. Denies tobacco or drug use. No NSAID use. ER course was notable for: PH 7.1; HCO3 : 6.5 AG 27; with leukocytosis Recent Travel: no PAST MEDICAL HISTORY: DKA PAST SURGICAL HISTORY: Social History: Smoking:no Alcohol:occasional Drugs: no Family History: Allergies No Known Allergies Allergy (Verified 03/08/17 08:36) HOME MEDICATIONS: Home Medications Medication Instructions Recorded Blood Sugar Diagnostic [Blood 1 each DAILY #60 strip 03/10/17 Glucose Test Strip] Cephalexin [Keflex] 500 mg PO BID #8 capsule 03/10/17 Insulin (Levemir) [Levemir Vial] 15 units SQ BID #1 vial 03/10/17 Insulin Pump/Infus. Set/Meter 1 each MC ASDIR #1 each 03/10/17 [Accu-Chek Combo System] Insulin Sliding Scale [Novolog See Protocol SQ ACHS #30 units 03/10/17 Vial Sliding Scale -] REVIEW OF SYSTEMS CONSTITUTIONAL: Absent: fever, chills, diaphoresis, generalized weakness, malaise, loss of appetite, weight change HEENT: Absent: rhinorrhea, nasal congestion, throat pain, throat swelling, difficulty swallowing, mouth swelling, ear pain, eye pain, visual changes CARDIOVASCULAR: Absent: chest pain, syncope, palpitations, irregular heart rate, lightheadedness , peripheral edema RESPIRATORY: Absent: cough, shortness of breath, dyspnea with exertion, orthopnea, wheezing, stridor, hemoptysis GASTROINTESTINAL: Positive: abdominal pain, n, v, hematemesis Absent: abdominal pain, abdominal distension, diarrhea, constipation, melena, hematochezia GENITOURINARY: Absent: dysuria, frequency, urgency, hesitancy, hematuria, flank pain, genital pain MUSCULOSKELETAL: Absent: myalgia, arthralgia, joint swelling, back pain, neck pain SKIN: Absent: rash, itching, pallor HEMATOLOGIC/IMMUNOLOGIC: Absent: easy bleeding, easy bruising, lymphadenopathy, frequent infections ENDOCRINE: Absent: unexplained weight gain, unexplained weight loss, heat intolerance, cold intolerance NEUROLOGIC: Absent: headache, focal weakness or paresthesias, dizziness, unsteady gait, seizure, mental status changes, bladder or bowel incontinence PSYCHIATRIC: Absent: anxiety, depression, suicidal or homicidal ideation, hallucinations. PHYSICAL EXAMINATION Vital Signs - 24 hr 04/07/17 10:18 Temperature 98.4 F Pulse Rate 89 Respiratory 21 Rate Blood Pressure 107/84 O2 Sat by Pulse 100 Oximetry (%) GENERAL: Awake, alert, and fully oriented, in no acute distress. HEAD: Normal with no signs of trauma. EYES: Pupils equal, round and reactive to light, extraocular movements intact, sclera anicteric, conjunctiva clear. No lid lag. EARS, NOSE, THROAT: Ears normal, nares patent, oropharynx clear without exudates. Moist mucous membranes. NECK: Normal range of motion, supple without lymphadenopathy, JVD, or masses. LUNGS: Breath sounds equal, clear to auscultation bilaterally. No wheezes, and no crackles. No accessory muscle use. HEART: Regular rate and rhythm, normal S1 and S2 without murmur, rub or gallop. ABDOMEN: Soft, nontender, not distended, normoactive bowel sounds, no guarding, no rebound, no masses. No hepatomegaly or splenomegaly. MUSCULOSKELETAL: Normal range of motion at all joints. No bony deformities or tenderness. No CVA tenderness. UPPER EXTREMITIES: 2+ pulses, warm, well-perfused. No cyanosis. No clubbing. No peripheral edema. LOWER EXTREMITIES: 2+ pulses, warm, well-perfused. No calf tenderness. No peripheral edema. NEUROLOGICAL: Cranial nerves II-XII intact. Normal speech. Normal gait. PSYCHIATRIC: Cooperative. Good eye contact. Appropriate mood and affect. SKIN: Warm, dry, normal turgor, no rashes or lesions noted, normal capillary refill. Laboratory Results - last 24 hr 04/07/17 04/07/17 04/07/17 10:25 10:26 10:45 WBC 17.2 H D RBC 3.93 Hgb 11.8 D Hct 38.5 D MCV 97.8 H D MCH 30.0 MCHC 30.7 L RDW 15.4 Plt Count 265 D MPV 9.5 Neutrophils % 89.9 H D Lymphocytes % 4.6 L D Monocytes % 5.4 Eosinophils % 0.0 D Basophils % 0.1 Puncture Site Left radial ABG pH 7.10 L* D ABG pCO2 at Pt Temp 22.0 L D ABG pO2 at Pt Temp 118.0 H ABG HCO3 6.5 L* ABG O2 Sat (Measured) 97.1 ABG O2 Content 14.7 L ABG Base Excess -21.9 L* Magno Test Positive Carboxyhemoglobin 1.3 Methemoglobin 0.8 O2 Delivery Device Room air Oxygen Flow Rate 120 Sodium Potassium Chloride Carbon Dioxide Anion Gap BUN Creatinine Creat Clearance w eGFR Random Glucose Calcium Total Bilirubin AST ALT Alkaline Phosphatase Total Protein Albumin Lipase Serum , Qual Urine Color Urine Appearance Urine pH Ur Specific [place] Urine Protein Urine Glucose (UA) Urine Ketones Urine Blood Urine Nitrite Urine Bilirubin Urine Acetone Urine Urobilinogen Urine WBC (Auto) Urine RBC (Auto) Ur Epithelial Cells Urine Mucus Acetone, Qual 04/07/17 04/07/17 04/07/17 10:45 10:45 10:45 WBC RBC Hgb Hct MCV MCH MCHC RDW Plt Count MPV Neutrophils % Lymphocytes % Monocytes % Eosinophils % Basophils % Puncture Site ABG pH ABG pCO2 at Pt Temp ABG pO2 at Pt Temp ABG HCO3 ABG O2 Sat (Measured) ABG O2 Content ABG Base Excess Magno Test Carboxyhemoglobin Methemoglobin O2 Delivery Device Oxygen Flow Rate Sodium 128 L D Potassium 4.7 D Chloride 92 L D Carbon Dioxide 9 L D Anion Gap 27 H BUN 28 H D Creatinine 1.4 H D Creat Clearance w eGFR 45.82 Random Glucose 763 H* D Calcium 9.3 Total Bilirubin 0.9 D AST 35 D ALT 30 D Alkaline Phosphatase 112 D Total Protein 8.1 D Albumin 3.9 D Lipase 76 Serum , Qual Negative Urine Color Straw Urine Appearance Clear Urine pH 5.0 Ur Specific [place] 1.017 Urine Protein Negative Urine Glucose (UA) 3+ H Urine Ketones 2+ H Urine Blood 1+ H Urine Nitrite Negative Urine Bilirubin Negative Urine Acetone Urine Urobilinogen Negative Urine WBC (Auto) 2 Urine RBC (Auto) <1 Ur Epithelial Cells Rare Urine Mucus Rare Acetone, Qual 04/07/17 11:47 WBC RBC Hgb Hct MCV MCH MCHC RDW Plt Count MPV Neutrophils % Lymphocytes % Monocytes % Eosinophils % Basophils % Puncture Site ABG pH ABG pCO2 at Pt Temp ABG pO2 at Pt Temp ABG HCO3 ABG O2 Sat (Measured) ABG O2 Content ABG Base Excess Magno Test Carboxyhemoglobin Methemoglobin O2 Delivery Device Oxygen Flow Rate Sodium Potassium Chloride Carbon Dioxide Anion Gap BUN Creatinine Creat Clearance w eGFR Random Glucose Calcium Total Bilirubin AST ALT Alkaline Phosphatase Total Protein Albumin Lipase Serum , Qual Urine Color Urine Appearance Urine pH Ur Specific [place] Urine Protein Urine Glucose (UA) Urine Ketones Urine Blood Urine Nitrite Urine Bilirubin Urine Acetone Cancelled Urine Urobilinogen Urine WBC (Auto) Urine RBC (Auto) Ur Epithelial Cells Urine Mucus Acetone, Qual Positive large 3+ H ASSESSMENT/PLAN: This is a 26 year old female with a history of diabetes mellitus type one with multiple hospitalizations for DKA, presents with nausea, vomiting, abdominal pain x1 day with hematemesis. #Diabetic ketoacidosis: -IVF; IV access -BGM Q1 -Insulin drip 0.1u/kg/hr with NS 125mls per hr; -currently on IVNS w/ 20meq KCl at 125cc/hr, if K+ >5.3 discontinue KCl -s/p 3L NS in ER -when BG <200, reduce rate to 0.03u/kg/hr and switch IVF to D5-1/2NS -BMP Q2 -When anion gap is 10-12, and pt is able to eat, switch to SC insulin regimen -zofran 4mg IVP q4h prn per nausea #Hematemesis: -possible ninoska meier tear vs capillary rupture due to vomiting -start protonix drip -trend h/h ; transfuse threshold <7.0 -GI consult #Hyponatremia: -pseudo sec to elevated glucose FEN; Fluids ASDR above Replete potassium while on insulin drip if <5.3 Diet: npo VTE: scds Disposition: ICU monitoring Visit type - Emergency Visit Emergency Visit: Yes ED Registration Date: 04/07/17 Care time: The patient presented to the Emergency Department on the above date and was hospitalized for further evaluation of their emergent condition. - New Patient This patient is new to me today: Yes Date on this admission: 04/07/17 - Critical Care Critical Care patient: Yes Total Critical Care Time (in minutes): 40 Critical Care Statement: The care of this patient involved high complexity decision making to prevent further life threatening deterioration of the patient 's condition and/or to evaluate & treat vital organ system(s) failure or risk of failure.
[2017-04-07] MEDS ORDERED: SODIUM CHLORIDE 0.9%/KCL 20 MEQ/1,000 ML INFUS.BAG IV STA (13:00)
[2017-04-07] MEDS ORDERED: ONDANSETRON 4 MG/2 ML VIAL IVPUSH PRN (13:01)
[2017-04-07 14:10] LABS: URINE LEUK ESTERASE Negative (NEGATIVE)
[2017-04-07] MEDS ORDERED: PANTOPRAZOLE SODIUM 80 MG in SODIUM CHLORIDE 100 ML IVPB SCH (16:00)
--- NOTE | 2017-04-07 16:07 | PN ---
Teaching Attending Note Name of Resident: Sharon Alejandro ATTENDING PHYSICIAN STATEMENT Time of evaluation: 3:15 PM I saw and evaluated the patient. I reviewed the resident's note and discussed the case with the resident. I agree with the resident's findings and plan as documented. SUBJECTIVE: Patient seen and examined. Currently feels better, still dry, reports distended bladder and wanting to urinate. No further vomitting in house. Had some lower abdominal pain earlier which has now resolved, now only complaining of suprapubic discomfort and wanting to urinate. Denies any fevers chills, nausea, dysuria, urinary frequency or urgency. NO chest pain, palpitations, dizziness, dyspnea, currenlty. Patient reports that was in her USOH till yesterday, when had a stressful incident at the intermediate. Had some nausea after the episode. Also overall has been stressed with her finals approaching but denies any dietary indiscretion during the holidays. Reports prior episodes of DKA when stressed. Around 3 AM, woke up with nausea, vomited initially the tea with cream she had. Had multiple episodes of vomiting after which noted some dark stuff in her vomitus, felt was dried blood, few more episodes of dark vomitus, prompting her to come to the ED. Reports remote h/o 'esophageal tear' in 2012 when needed EGD, but states not ' that bad' this time. has been continuing her insulin pump at home with blood sugars 200s till yesterday. She multiple admissions with DKA in the past, last at [facility] in 02/2017. OBJECTIVE: Vital Signs Period Temp Pulse Resp BP Sys/Hwang Pulse Ox Last 24 Hr 98.4 F-99.2 F 89-129 21-22 87-107/48-84 97-100 Intake & Output 04/04/17 04/05/17 04/06/17 04/07/17 23:59 23:59 23:59 23:59 Weight 105 lb GENERAL: Awake, clinically dry, weak looking HEAD: Normal with no signs of trauma. EYES: Pupils equal, round and reactive to light, extraocular movements intact, sclera anicteric, conjunctiva clear. No lid lag. EARS, NOSE, THROAT: Ears normal, nares patent, oropharynx clear without exudates. dry mucous membranes. Scant dried dark material on lips/tongue NECK: Normal range of motion, supple without lymphadenopathy, JVD, or masses. LUNGS: Breath sounds equal, clear to auscultation bilaterally. No wheezes, and no crackles. No accessory muscle use. HEART: Regular rapid ABDOMEN: Soft, distension in suprapubic region with tenderness, no tenderness otherwise, no voluntary or involuntary guarding or rigidity, positive bowel sounds, no CVA tenderness. MUSCULOSKELETAL: Normal range of motion at all joints. No bony deformities or tenderness. No CVA tenderness. UPPER EXTREMITIES: 2+ pulses, warm, well-perfused. No cyanosis. No clubbing. No peripheral edema. LOWER EXTREMITIES: 2+ pulses, warm, well-perfused. No calf tenderness. No peripheral edema. NEUROLOGICAL: Cranial nerves II-XII grossly intact. Normal speech. Gait deferred PSYCHIATRIC: Cooperative. Good eye contact. Appropriate mood and affect. SKIN: Warm, dry, decreased skin turgor Active Medications Generic Name Dose Route Start Last Admin Trade Name Freq PRN Reason Stop Dose Admin Chlorhexidine Gluconate 1 applic 04/07/17 22:00 Hibiclens For Decolonization - TP HS CADEN Insulin Human Regular 100 100 mls @ 4.76 mls/hr 04/07/17 12:00 04/07/17 13:00 units/ Sodium Chloride IVPB 0.1 units/kg/hr TITR CADEN 4.76 mls/hr Protocol Administration 0.1 UNITS/KG/HR Pantoprazole Sodium 80 mg/ 100 mls @ 10 mls/hr 04/07/17 16:00 Sodium Chloride IVPB Q10H CADEN 8 MG/HR Mupirocin 1 applic 04/07/17 22:00 Bactroban Ointment (For Decolonization) - NS 04/12/17 21:59 BID CADEN Ondansetron HCl 4 mg 04/07/17 13:01 Zofran Injection IVPUSH Q4H PRN NAUSEA AND/OR VOMITING Laboratory Results - last 24 hr 04/07/17 04/07/17 04/07/17 10:25 10:26 10:45 WBC 17.2 H D RBC 3.93 Hgb 11.8 D Hct 38.5 D MCV 97.8 H D MCH 30.0 MCHC 30.7 L RDW 15.4 Plt Count 265 D MPV 9.5 Neutrophils % 89.9 H D Lymphocytes % 4.6 L D Monocytes % 5.4 Eosinophils % 0.0 D Basophils % 0.1 Puncture Site Left radial ABG pH 7.10 L* D ABG pCO2 at Pt Temp 22.0 L D ABG pO2 at Pt Temp 118.0 H ABG HCO3 6.5 L* ABG O2 Sat (Measured) 97.1 ABG O2 Content 14.7 L ABG Base Excess -21.9 L* Magno Test Positive Carboxyhemoglobin 1.3 Methemoglobin 0.8 O2 Delivery Device Room air Oxygen Flow Rate 120 Sodium Potassium Chloride Carbon Dioxide Anion Gap BUN Creatinine Creat Clearance w eGFR Random Glucose Calcium Total Bilirubin AST ALT Alkaline Phosphatase Total Protein Albumin Lipase Serum , Qual Urine Color Urine Appearance Urine pH Ur Specific [place] Urine Protein Urine Glucose (UA) Urine Ketones Urine Blood Urine Nitrite Urine Bilirubin Urine Acetone Urine Urobilinogen Ur Leukocyte Esterase Urine WBC (Auto) Urine RBC (Auto) Ur Epithelial Cells Urine Mucus Acetone, Qual 04/07/17 04/07/17 04/07/17 10:45 10:45 10:45 WBC RBC Hgb Hct MCV MCH MCHC RDW Plt Count MPV Neutrophils % Lymphocytes % Monocytes % Eosinophils % Basophils % Puncture Site ABG pH ABG pCO2 at Pt Temp ABG pO2 at Pt Temp ABG HCO3 ABG O2 Sat (Measured) ABG O2 Content ABG Base Excess Magno Test Carboxyhemoglobin Methemoglobin O2 Delivery Device Oxygen Flow Rate Sodium 128 L D Potassium 4.7 D Chloride 92 L D Carbon Dioxide 9 L D Anion Gap 27 H BUN 28 H D Creatinine 1.4 H D Creat Clearance w eGFR 45.82 Random Glucose 763 H* D Calcium 9.3 Total Bilirubin 0.9 D AST 35 D ALT 30 D Alkaline Phosphatase 112 D Total Protein 8.1 D Albumin 3.9 D Lipase 76 Serum , Qual Negative Urine Color Straw Urine Appearance Clear Urine pH 5.0 Ur Specific [place] 1.017 Urine Protein Negative Urine Glucose (UA) 3+ H Urine Ketones 2+ H Urine Blood 1+ H Urine Nitrite Negative Urine Bilirubin Negative Urine Acetone Urine Urobilinogen Negative Ur Leukocyte Esterase Negative Urine WBC (Auto) 2 Urine RBC (Auto) <1 Ur Epithelial Cells Rare Urine Mucus Rare Acetone, Qual 04/07/17 11:47 WBC RBC Hgb Hct MCV MCH MCHC RDW Plt Count MPV Neutrophils % Lymphocytes % Monocytes % Eosinophils % Basophils % Puncture Site ABG pH ABG pCO2 at Pt Temp ABG pO2 at Pt Temp ABG HCO3 ABG O2 Sat (Measured) ABG O2 Content ABG Base Excess Magno Test Carboxyhemoglobin Methemoglobin O2 Delivery Device Oxygen Flow Rate Sodium Potassium Chloride Carbon Dioxide Anion Gap BUN Creatinine Creat Clearance w eGFR Random Glucose Calcium Total Bilirubin AST ALT Alkaline Phosphatase Total Protein Albumin Lipase Serum , Qual Urine Color Urine Appearance Urine pH Ur Specific [place] Urine Protein Urine Glucose (UA) Urine Ketones Urine Blood Urine Nitrite Urine Bilirubin Urine Acetone Cancelled Urine Urobilinogen Ur Leukocyte Esterase Urine WBC (Auto) Urine RBC (Auto) Ur Epithelial Cells Urine Mucus Acetone, Qual Positive large 3+ H CT A/P - markedly distended urinary bladder, otherwise negative for acute process ASSESSMENT AND PLAN: 26 yof with PMHx of type I DM on insulin pump, with numerous admissions for DKA , last in 02/2017, comes back with an episode of vomiting followed by ? hemetemesis, DKA. -DKA -Vomiting follow up ?hemetemesis, ?Ana Torres tear Plan: Admit to ICU, Insulin pump turned off currently, BG q1h, insulin drip 0.1 U/kg/ hr, when BG < 200 change to 0.03 Units/Kg/hr, and change IVF to D5-1/2 NS at 125 ml/hr. IVF NS with 20 KCL at 125 ml/hr, When K> 5.3, d/c K. BMP q2h, ABG q4h as needed. Patient reports vomitting followed by ?dark blood scant material. History suspicous for Ana Torres tear (reports h/o "esophageal Tear" in 2012 when had EGD). Place on protonix drip, zofran prn. H/h q6h, GI consulted with Dr. Dow, called office, will follow up. Aggressive hydration. EGD based on clinical course. No urinary symptoms, urinalysis noted. Monitor for now, follow up for new symptoms and culture results. NO DVTPPX for now given concerns for upper GI bleed. SCDs when in bed Critically ill given DKA, concerns for upper GI bleed. Plan discussed with ED, Dr. Dow's service (Dr. Kiranback covering). Total critical care time spent 65 min.
[2017-04-07] MEDS ORDERED: LIDOCAINE HCL 1%, 10 MG/ML (20ML VIAL) ONE (16:30)
[2017-04-07 18:04] LABS: ANION GAP 14 (8-16); CALCIUM 7.4 mg/dL (8.5-10.1); CO2 13 mmol/L (21-32); GLUCOSE,RANDOM 217 mg/dL (74-106)
[2017-04-07 19:23] LABS: MCH 30.4 pg (25.7-33.7); MCHC 32.6 g/dl (32.0-36.0); MEAN CELL VOLUME 93.1 fl (80-96); MEAN PLT VOLUME 8.8 fl (7.5-11.1); PLATELET COUNT 241 K/MM3 (134-434); RDW 15.4 % (11.6-15.6); WHITE BLOOD COUNT 17.2 K/mm3 (4.0-10.0)
[2017-04-07 20:01] LABS: ANION GAP 14 (8-16); CALCIUM 7.3 mg/dL (8.5-10.1); CO2 15 mmol/L (21-32); CREATININE 1.1 mg/dL (0.55-1.02); GLUCOSE,RANDOM 164 mg/dL (74-106)
[2017-04-07] MEDS ORDERED: D5-1/2NS+20 MEQ KCL - 20 MEQ/1,000 ML INFUS.BAG IV SCH (20:15)
--- NOTE | 2017-04-07 20:40 | CONSULT ---
Consult Consult Specialty:: PULM/CCM Referred by:: Dr. Gallegos Reason for Consultation:: DKA - History of Present Illness Chief Complaint: N/V History of Present Illness: Ms. Hinson is a 26 y/o woman, Type I DM on an insulin pump w/ numerous admissions for DKA, (last admit was last month) who presents to the ED w/ intractable N/V. The pt endorses recent contact w/ multiple ill youths. The pt reports viral-type malaise amongst many of her most recent contacts. In the ED BGL > 760, AGAP = 27 w/ serum + for acetone, pH = 7.1, HCO3 = 6.5, & 2+ Ketones in the urine. Pt placed on an insulin gtt & rehydrated w/ IVFs. Pt admitted now to the ICU for DKA. - History Source History Provided By: Patient, Medical Record Limitations to Obtaining History: No Limitations - Past Medical History ...LMP: 02/21/17 Endocrine: Yes: Diabetes Mellitus (Type 1 DM) - Alcohol/Substance Use Hx Alcohol Use: No - Smoking History Smoking history: Never smoked Have you smoked in the past 12 months: No - Social History Usual Living Arrangement: Alone ADL: Independent Home Medications - Allergies Allergies/Adverse Reactions: Allergies Allergy/AdvReac Type Severity Reaction Status Date / Time No Known Allergies Allergy Verified 03/08/17 08:36 - Home Medications Home Medications: Ambulatory Orders Blood Sugar Diagnostic [Blood Glucose Test Strip] 1 each MC DAILY #60 strip Cephalexin [Keflex] 500 mg PO BID #8 capsule 03/10/17 Insulin (Levemir) [Levemir Vial] 15 units SQ BID #1 vial 03/10/17 Insulin Pump/Infus. Set/Meter [Accu-Chek Combo System] 1 each MC ASDIR #1 each 03/10/17 Insulin Sliding Scale [Novolog Vial Sliding Scale -] See Protocol SQ ACHS #30 units 03/10/17 Family Disease History - Family Disease History Family History: Denies Review of Systems - Review of Systems Constitutional: reports: No Symptoms Eyes: reports: No Symptoms HENT: reports: No Symptoms Neck: reports: No Symptoms Cardiovascular: reports: No Symptoms Respiratory: reports: No Symptoms Gastrointestinal: reports: Abdominal Pain, Vomiting, Vomiting Blood Breasts: reports: No Symptoms Reported Musculoskeletal: reports: No Symptoms Integumentary: reports: No Symptoms Neurological: reports: No Symptoms Endocrine: reports: No Symptoms Hematology/Lymphatic: reports: No Symptoms Psychiatric: reports: No Symptoms Pain Intensity: 0 Physical Exam Vital Signs: Vital Signs Temperature 98.1 F 04/07/17 18:25 Pulse Rate 120 H 04/07/17 18:25 Respiratory Rate 18 04/07/17 18:25 Blood Pressure 110/68 04/07/17 18:25 O2 Sat by Pulse Oximetry (%) 97 04/07/17 16:19 Constitutional: Yes: Well Nourished, No Distress, Calm Eyes: Yes: WNL, Conjunctiva Clear, EOM Intact HENT: Yes: WNL, Atraumatic, Normocephalic Neck: Yes: WNL, Supple, Trachea Midline Cardiovascular: Yes: WNL, Regular Rate and Rhythm, Tachycardia Respiratory: Yes: WNL, Regular, CTA Bilaterally Gastrointestinal: Yes: WNL, Normal Bowel Sounds ...Rectal Exam: Yes: Deferred Renal/: Yes: WNL Breast(s): Yes: WNL Musculoskeletal: Yes: WNL Extremities: Yes: WNL Edema: No Peripheral Pulses WNL: Yes Integumentary: Yes: WNL Neurological: Yes: WNL, Oriented, Babinski positive ...Motor Strength: WNL Psychiatric: Yes: WNL, Alert, Oriented Labs: CBC, BMP 04/07/17 18:40 04/07/17 18:40 Imaging - Results Chest X-ray: Image Reviewed (CXR 04/07: Clear (My Read)) Cat Scan: Image Reviewed (CTAP 04/07: Markedly distended urinary bladder, otherwise negative for acute process.) Problem List - Problems (1) DKA (diabetic ketoacidoses) Code(s): E13.10 - OTH DIABETES MELLITUS WITH KETOACIDOSIS WITHOUT COMA Qualifiers: Diabetes mellitus type: other specified (including ADOLFO) Diabetes mellitus complication detail: without coma Qualified Code(s): E13.10 - Other specified diabetes mellitus with ketoacidosis without coma (2) Type 1 diabetes mellitus Code(s): E10.9 - TYPE 1 DIABETES MELLITUS WITHOUT COMPLICATIONS Assessment/Plan ASSESS: This is a 26 y/o woman w/ type I DM on an insulin pump w/ numerous admits for DKA admitted now w/ recurrent DKA m/l in the setting of a viral illness. PLAN: -NPO -Insulin gtt -FSs -Aggressive IVFs -Strict I's & O's -Monitor UOP -Trend BUN/Cr -Replete e-lytes -Zofran for N/V -GI consult RE: intractable Vomit, finally w/ reported blood tinged emesis (r/o Ana Torres tear) -Protonix gtt -F/u Clxrs -No Abx for now -Advance diet a/p GI -SCDs -Once AGAP closed & pt eating Transfer to tele DGL [facility] ICU PULM/CCM
[2017-04-07] MEDS ORDERED: LACTATED RINGERS SOLUTION 1,000 ML/1,000 ML INFUS.BAG IV STA (20:47)
[2017-04-07] MEDS ORDERED: PANTOPRAZOLE SODIUM 40 MG VIAL IVPUSH SCH (22:00)
[2017-04-07] MEDS: MUPIROCIN 2% TOPICAL OINTMENT FOR DECOLONIZATION NS SCH (22:31)
[2017-04-07] MEDS: CHLORHEXIDINE GLUCONATE 4% CLEANSER FOR DECOLONIZATION TP SCH (22:31)
[2017-04-08 01:45] LABS: ANION GAP 10 (8-16); CALCIUM 7.5 mg/dL (8.5-10.1); CO2 19 mmol/L (21-32); CREATININE 0.8 mg/dL (0.55-1.02); GLUCOSE,RANDOM 92 mg/dL (74-106)
[2017-04-08 06:43] LABS: MCH 30.1 pg (25.7-33.7); MCHC 32.7 g/dl (32.0-36.0); MEAN CELL VOLUME 91.9 fl (80-96); MEAN PLT VOLUME 8.5 fl (7.5-11.1); PLATELET COUNT 203 K/MM3 (134-434); RDW 15.5 % (11.6-15.6); WHITE BLOOD COUNT 14.9 K/mm3 (4.0-10.0)
[2017-04-08] MEDS ORDERED: INSULIN REGULAR 100 UNITS in SODIUM CHLORIDE 99 ML IVPB SCH (06:52)
[2017-04-08 07:05] LABS: ANION GAP 6 (8-16); CALCIUM 7.1 mg/dL (8.5-10.1); CO2 22 mmol/L (21-32); CREATININE 0.8 mg/dL (0.55-1.02); GLUCOSE,RANDOM 82 mg/dL (74-106); MAGNESIUM 2.1 mg/dL (1.8-2.4); PHOSPHOROUS 1.3 mg/dL (2.5-4.9)
[2017-04-08] MEDS ORDERED: PNEUMOC 13-VAL CONJ-DIP CRM/PF 0.5 ML DISP.SYRIN IM ONE (09:00)
--- NOTE | 2017-04-08 09:27 | PN ---
Progress Note (short form) - Note Progress Note: Patient seen and examined in the ICU. Denies CP or SOB. Remains on IV Insulin drip. AG is improving but has not closed. Intake & Output 04/05/17 04/06/17 04/07/17 04/08/17 23:59 23:59 23:59 23:59 Intake Total 2399 Balance 2399 Weight 105 lb Last Vital Signs Temp Pulse Resp BP Pulse Ox 99.6 F 98 H 16 106/80 97 04/08/17 06:00 04/08/17 08:00 04/08/17 08:00 04/08/17 08:00 04/07/17 16:19 Active Medications Chlorhexidine Gluconate (Hibiclens For Decolonization -) 1 applic TP HS CADEN Last Admin: 04/07/17 22:31 Dose: 1 applic Potassium Chloride/Dextrose/Sod Cl (D5-1/2ns+20 Meq Kcl -) 20 meq in 1,000 mls @ 125 mls/hr IV ASDIR CADEN Last Admin: 04/07/17 20:35 Dose: 125 mls/hr Insulin Human Regular 100 (units/ Sodium Chloride) 100 mls @ 1.42 mls/hr IVPB TITR CADEN; 0.03 UNITS/KG/HR PRN Reason: Protocol Last Admin: 04/08/17 06:57 Dose: 0.04 units/kg/hr, 2 mls/hr Mupirocin (Bactroban Ointment (For Decolonization) -) 1 applic NS BID CADEN Stop: 04/12/17 21:59 Last Admin: 04/07/17 22:31 Dose: 1 applic Ondansetron HCl (Zofran Injection) 4 mg IVPUSH Q4H PRN PRN Reason: NAUSEA AND/OR VOMITING Last Admin: 04/07/17 22:31 Dose: 4 mg Pantoprazole Sodium (Protonix Iv) 40 mg IVPB BID CADEN Constitutional: Yes: No Distress Eyes: Yes: WNL, Conjunctiva Clear, EOM Intact HENT: Yes: WNL, Atraumatic, Normocephalic Neck: Yes: WNL, Supple, Trachea Midline Cardiovascular: Yes: WNL, Regular Rate and Rhythm, Tachycardia Respiratory: Yes: WNL, Regular, CTA Bilaterally Gastrointestinal: Yes: WNL, Normal Bowel Sounds ...Rectal Exam: Yes: Deferred Renal/: Yes: WNL Breast(s): Yes: WNL Musculoskeletal: Yes: WNL Extremities: Yes: WNL Edema: No Peripheral Pulses WNL: Yes Integumentary: Yes: WNL Neurological: Yes: WNL, Oriented, Babinski positive ...Motor Strength: WNL Psychiatric: Yes: WNL, Alert, Oriented Labs: Laboratory Results - last 24 hr 04/07/17 04/07/17 04/07/17 10:25 10:26 10:45 WBC 17.2 H D RBC 3.93 Hgb 11.8 D Hct 38.5 D MCV 97.8 H D MCH 30.0 MCHC 30.7 L RDW 15.4 Plt Count 265 D MPV 9.5 Neutrophils % 89.9 H D Lymphocytes % 4.6 L D Monocytes % 5.4 Eosinophils % 0.0 D Basophils % 0.1 Manual Slide Review Puncture Site Left radial ABG pH 7.10 L* D ABG pCO2 at Pt Temp 22.0 L D ABG pO2 at Pt Temp 118.0 H ABG HCO3 6.5 L* ABG O2 Sat (Measured) 97.1 ABG O2 Content 14.7 L ABG Base Excess -21.9 L* Magno Test Positive Carboxyhemoglobin 1.3 Methemoglobin 0.8 O2 Delivery Device Room air Oxygen Flow Rate 120 Sodium Potassium Chloride Carbon Dioxide Anion Gap BUN Creatinine Creat Clearance w eGFR POC Glucometer Random Glucose Calcium Phosphorus Magnesium Total Bilirubin AST ALT Alkaline Phosphatase Total Protein Albumin Lipase Serum , Qual Urine Color Urine Appearance Urine pH Ur Specific Ewing Urine Protein Urine Glucose (UA) Urine Ketones Urine Blood Urine Nitrite Urine Bilirubin Urine Acetone Urine Urobilinogen Ur Leukocyte Esterase Urine WBC (Auto) Urine RBC (Auto) Ur Epithelial Cells Urine Mucus Acetone, Qual 04/07/17 04/07/17 04/07/17 10:45 10:45 10:45 WBC RBC Hgb Hct MCV MCH MCHC RDW Plt Count MPV Neutrophils % Lymphocytes % Monocytes % Eosinophils % Basophils % Manual Slide Review Puncture Site ABG pH ABG pCO2 at Pt Temp ABG pO2 at Pt Temp ABG HCO3 ABG O2 Sat (Measured) ABG O2 Content ABG Base Excess Magno Test Carboxyhemoglobin Methemoglobin O2 Delivery Device Oxygen Flow Rate Sodium 128 L D Potassium 4.7 D Chloride 92 L D Carbon Dioxide 9 L D Anion Gap 27 H BUN 28 H D Creatinine 1.4 H D Creat Clearance w eGFR 45.82 POC Glucometer Random Glucose 763 H* D Calcium 9.3 Phosphorus Magnesium Total Bilirubin 0.9 D AST 35 D ALT 30 D Alkaline Phosphatase 112 D Total Protein 8.1 D Albumin 3.9 D Lipase 76 Serum , Qual Negative Urine Color Straw Urine Appearance Clear Urine pH 5.0 Ur Specific Ewing 1.017 Urine Protein Negative Urine Glucose (UA) 3+ H Urine Ketones 2+ H Urine Blood 1+ H Urine Nitrite Negative Urine Bilirubin Negative Urine Acetone Urine Urobilinogen Negative Ur Leukocyte Esterase Negative Urine WBC (Auto) 2 Urine RBC (Auto) <1 Ur Epithelial Cells Rare Urine Mucus Rare Acetone, Qual 04/07/17 04/07/17 04/07/17 11:47 17:38 17:43 WBC RBC Hgb Hct MCV MCH MCHC RDW Plt Count MPV Neutrophils % Lymphocytes % Monocytes % Eosinophils % Basophils % Manual Slide Review Puncture Site ABG pH ABG pCO2 at Pt Temp ABG pO2 at Pt Temp ABG HCO3 ABG O2 Sat (Measured) ABG O2 Content ABG Base Excess Magno Test Carboxyhemoglobin Methemoglobin O2 Delivery Device Oxygen Flow Rate Sodium 145 D Potassium 4.1 Chloride 118 H D Carbon Dioxide 13 L D Anion Gap 14 BUN 21 H D Creatinine 1.0 D Creat Clearance w eGFR POC Glucometer 245.88994 Random Glucose 217 H D Calcium 7.4 L D Phosphorus Magnesium Total Bilirubin AST ALT Alkaline Phosphatase Total Protein Albumin Lipase Serum , Qual Urine Color Urine Appearance Urine pH Ur Specific Ewing Urine Protein Urine Glucose (UA) Urine Ketones Urine Blood Urine Nitrite Urine Bilirubin Urine Acetone Cancelled Urine Urobilinogen Ur Leukocyte Esterase Urine WBC (Auto) Urine RBC (Auto) Ur Epithelial Cells Urine Mucus Acetone, Qual Positive large 3+ H 04/07/17 04/07/17 04/07/17 18:40 18:40 20:04 WBC 17.2 H RBC 3.20 L Hgb 9.7 L D Hct 29.8 L D MCV 93.1 MCH 30.4 MCHC 32.6 RDW 15.4 Plt Count 241 MPV 8.8 Neutrophils % Lymphocytes % Monocytes % Eosinophils % Basophils % Manual Slide Review No Result Required. Puncture Site ABG pH ABG pCO2 at Pt Temp ABG pO2 at Pt Temp ABG HCO3 ABG O2 Sat (Measured) ABG O2 Content ABG Base Excess Magno Test Carboxyhemoglobin Methemoglobin O2 Delivery Device Oxygen Flow Rate Sodium 148 H Potassium 4.0 Chloride 119 H Carbon Dioxide 15 L Anion Gap 14 BUN 20 H Creatinine 1.1 H Creat Clearance w eGFR POC Glucometer 148.32362 Random Glucose 164 H D Calcium 7.3 L Phosphorus Magnesium Total Bilirubin AST ALT Alkaline Phosphatase Total Protein Albumin Lipase Serum , Qual Urine Color Urine Appearance Urine pH Ur Specific Ewing Urine Protein Urine Glucose (UA) Urine Ketones Urine Blood Urine Nitrite Urine Bilirubin Urine Acetone Urine Urobilinogen Ur Leukocyte Esterase Urine WBC (Auto) Urine RBC (Auto) Ur Epithelial Cells Urine Mucus Acetone, Qual 04/07/17 04/07/17 04/07/17 21:04 22:07 23:13 WBC RBC Hgb Hct MCV MCH MCHC RDW Plt Count MPV Neutrophils % Lymphocytes % Monocytes % Eosinophils % Basophils % Manual Slide Review Puncture Site ABG pH ABG pCO2 at Pt Temp ABG pO2 at Pt Temp ABG HCO3 ABG O2 Sat (Measured) ABG O2 Content ABG Base Excess Magno Test Carboxyhemoglobin Methemoglobin O2 Delivery Device Oxygen Flow Rate Sodium Potassium Chloride Carbon Dioxide Anion Gap BUN Creatinine Creat Clearance w eGFR POC Glucometer 130.70335 117.87050 133.98804 Random Glucose Calcium Phosphorus Magnesium Total Bilirubin AST ALT Alkaline Phosphatase Total Protein Albumin Lipase Serum , Qual Urine Color Urine Appearance Urine pH Ur Specific Ewing Urine Protein Urine Glucose (UA) Urine Ketones Urine Blood Urine Nitrite Urine Bilirubin Urine Acetone Urine Urobilinogen Ur Leukocyte Esterase Urine WBC (Auto) Urine RBC (Auto) Ur Epithelial Cells Urine Mucus Acetone, Qual 04/08/17 04/08/17 04/08/17 00:00 00:03 01:07 WBC RBC Hgb Hct MCV MCH MCHC RDW Plt Count MPV Neutrophils % Lymphocytes % Monocytes % Eosinophils % Basophils % Manual Slide Review Puncture Site ABG pH ABG pCO2 at Pt Temp ABG pO2 at Pt Temp ABG HCO3 ABG O2 Sat (Measured) ABG O2 Content ABG Base Excess Magno Test Carboxyhemoglobin Methemoglobin O2 Delivery Device Oxygen Flow Rate Sodium 148 H Potassium 3.8 Chloride 119 H Carbon Dioxide 19 L D Anion Gap 10 BUN 16 Creatinine 0.8 D Creat Clearance w eGFR POC Glucometer 117.43995 142.57208 Random Glucose 92 D Calcium 7.5 L Phosphorus Magnesium Total Bilirubin AST ALT Alkaline Phosphatase Total Protein Albumin Lipase Serum , Qual Urine Color Urine Appearance Urine pH Ur Specific Ewing Urine Protein Urine Glucose (UA) Urine Ketones Urine Blood Urine Nitrite Urine Bilirubin Urine Acetone Urine Urobilinogen Ur Leukocyte Esterase Urine WBC (Auto) Urine RBC (Auto) Ur Epithelial Cells Urine Mucus Acetone, Qual 04/08/17 04/08/17 04/08/17 02:00 03:54 05:35 WBC 14.9 H RBC 3.00 L Hgb 9.0 L Hct 27.6 L MCV 91.9 MCH 30.1 MCHC 32.7 RDW 15.5 Plt Count 203 MPV 8.5 Neutrophils % Lymphocytes % Monocytes % Eosinophils % Basophils % Manual Slide Review No Result Required. Puncture Site ABG pH ABG pCO2 at Pt Temp ABG pO2 at Pt Temp ABG HCO3 ABG O2 Sat (Measured) ABG O2 Content ABG Base Excess Magno Test Carboxyhemoglobin Methemoglobin O2 Delivery Device Oxygen Flow Rate Sodium Potassium Chloride Carbon Dioxide Anion Gap BUN Creatinine Creat Clearance w eGFR POC Glucometer 157.10464 133.25182 Random Glucose Calcium Phosphorus Magnesium Total Bilirubin AST ALT Alkaline Phosphatase Total Protein Albumin Lipase Serum , Qual Urine Color Urine Appearance Urine pH Ur Specific Ewing Urine Protein Urine Glucose (UA) Urine Ketones Urine Blood Urine Nitrite Urine Bilirubin Urine Acetone Urine Urobilinogen Ur Leukocyte Esterase Urine WBC (Auto) Urine RBC (Auto) Ur Epithelial Cells Urine Mucus Acetone, Qual 04/08/17 04/08/17 04/08/17 05:35 05:45 06:53 WBC RBC Hgb Hct MCV MCH MCHC RDW Plt Count MPV Neutrophils % Lymphocytes % Monocytes % Eosinophils % Basophils % Manual Slide Review Puncture Site ABG pH ABG pCO2 at Pt Temp ABG pO2 at Pt Temp ABG HCO3 ABG O2 Sat (Measured) ABG O2 Content ABG Base Excess Magno Test Carboxyhemoglobin Methemoglobin O2 Delivery Device Oxygen Flow Rate Sodium 148 H Potassium 3.5 Chloride 120 H Carbon Dioxide 22 Anion Gap 6 L BUN 16 Creatinine 0.8 Creat Clearance w eGFR POC Glucometer 111.14907 145.54510 Random Glucose 82 Calcium 7.1 L Phosphorus 1.3 L D Magnesium 2.1 Total Bilirubin AST ALT Alkaline Phosphatase Total Protein Albumin Lipase Serum , Qual Urine Color Urine Appearance Urine pH Ur Specific Ewing Urine Protein Urine Glucose (UA) Urine Ketones Urine Blood Urine Nitrite Urine Bilirubin Urine Acetone Urine Urobilinogen Ur Leukocyte Esterase Urine WBC (Auto) Urine RBC (Auto) Ur Epithelial Cells Urine Mucus Acetone, Qual 04/08/17 08:13 WBC RBC Hgb Hct MCV MCH MCHC RDW Plt Count MPV Neutrophils % Lymphocytes % Monocytes % Eosinophils % Basophils % Manual Slide Review Puncture Site ABG pH ABG pCO2 at Pt Temp ABG pO2 at Pt Temp ABG HCO3 ABG O2 Sat (Measured) ABG O2 Content ABG Base Excess Magno Test Carboxyhemoglobin Methemoglobin O2 Delivery Device Oxygen Flow Rate Sodium Potassium Chloride Carbon Dioxide Anion Gap BUN Creatinine Creat Clearance w eGFR POC Glucometer 144.28542 Random Glucose Calcium Phosphorus Magnesium Total Bilirubin AST ALT Alkaline Phosphatase Total Protein Albumin Lipase Serum , Qual Urine Color Urine Appearance Urine pH Ur Specific Ewing Urine Protein Urine Glucose (UA) Urine Ketones Urine Blood Urine Nitrite Urine Bilirubin Urine Acetone Urine Urobilinogen Ur Leukocyte Esterase Urine WBC (Auto) Urine RBC (Auto) Ur Epithelial Cells Urine Mucus Acetone, Qual Problem List - Problems (1) DKA (diabetic ketoacidoses) Code(s): E13.10 - OTH DIABETES MELLITUS WITH KETOACIDOSIS WITHOUT COMA Qualifiers: Diabetes mellitus type: other specified (including ADOLFO) Diabetes mellitus complication detail: without coma Qualified Code(s): E13.10 - Other specified diabetes mellitus with ketoacidosis without coma (2) Type 1 diabetes mellitus Code(s): E10.9 - TYPE 1 DIABETES MELLITUS WITHOUT COMPLICATIONS Assessment/Plan ASSESS: This is a 26 y/o woman w/ type I DM on an insulin pump w/ numerous admits for DKA admitted now w/ recurrent DKA m/l in the setting of a viral illness. PLAN: Insulin drip until AG is closed IVF Monitor UOP Replete e-lytes as needed Zofran for N/V GI consult has been called R/O Ana Torres tear Protonix Monitor off ABX SCDs Dr Greenberg Critical care time spent in reviewing chart, evaluating patient and formulating plan - 36 minutes.
[2017-04-08] MEDS ORDERED: POTASSIUM PHOSPHATE IVPB ONE (09:28)
[2017-04-08] MEDS ORDERED: SODIUM CHLORIDE IVPB ONE (09:28)
[2017-04-08] MEDS ORDERED: PANTOPRAZOLE SODIUM 40 MG VIAL IVPB SCH (10:00)
[2017-04-08] MEDS: MUPIROCIN 2% TOPICAL OINTMENT FOR DECOLONIZATION NS SCH ×2 (10:02→22:06)
[2017-04-08] MEDS: PANTOPRAZOLE 40 MG TABLET (FP) PO SCH ×2 (10:02)
[2017-04-08] MEDS ORDERED: SODIUM CHLORIDE IV SCH (13:45)
[2017-04-08] MEDS ORDERED: KCL IV SCH (13:45)
--- NOTE | 2017-04-08 13:47 | PN ---
Teaching Attending Note Name of Resident: . TIme of evaluation: 9:40 AM SUBJECTIVE: Patient seen and examined, overall feels better, no further vomiting or dark material noted. Abdominal symptoms better, no flank tenderness or urinary symptoms. OBJECTIVE: Vital Signs Period Temp Pulse Resp BP Sys/Hwang Pulse Ox Last 24 Hr 98.1 F-99.6 F 97-130 16-22 84-114/47-86 97-97 Intake & Output 04/05/17 04/06/17 04/07/17 04/08/17 23:59 23:59 23:59 23:59 Intake Total 2399 Balance 2399 Weight 105 lb GEneral: sitting in bed, more active and better today CVS:S1S2 regular Chest: CTAB, no rales or wheezing abdomen Soft, NT, ND, positive bowel sounds extremities: no edema Active Medications Generic Name Dose Route Start Last Admin Trade Name Freq PRN Reason Stop Dose Admin Chlorhexidine Gluconate 1 applic 04/07/17 22:00 04/07/17 22:31 Hibiclens For Decolonization - TP 1 applic HS CADEN Administration Potassium Chloride/Sodium Chloride 1,000 mls @ 75 mls/hr 04/08/17 13:45 Ns+20 Meq Kcl - IV ASDIR CADEN Insulin Aspart 1 vial 04/08/17 13:45 Novolog Vial Sliding Scale - SQ ACHS CADEN Protocol Mupirocin 1 applic 04/07/17 22:00 04/08/17 10:02 Bactroban Ointment (For Decolonization) - NS 04/12/17 21:59 1 applic BID CADEN Administration Ondansetron HCl 4 mg 04/07/17 13:01 04/07/17 22:31 Zofran Injection IVPUSH 4 mg Q4H PRN Administration NAUSEA AND/OR VOMITING Pantoprazole Sodium 40 mg 04/08/17 09:45 04/08/17 10:02 Protonix - PO 40 mg DAILY CADEN Administration Laboratory Last Values WBC 14.9 K/mm3 (4.0-10.0) H 04/08/17 05:35 RBC 3.00 M/mm3 (3.60-5.2) L 04/08/17 05:35 Hgb 9.0 GM/dL (10.7-15.3) L 04/08/17 05:35 Hct 27.6 % (32.4-45.2) L 04/08/17 05:35 MCV 91.9 fl (80-96) 04/08/17 05:35 MCH 30.1 pg (25.7-33.7) 04/08/17 05:35 MCHC 32.7 g/dl (32.0-36.0) 04/08/17 05:35 RDW 15.5 % (11.6-15.6) 04/08/17 05:35 Plt Count 203 K/MM3 (134-434) 04/08/17 05:35 MPV 8.5 fl (7.5-11.1) 04/08/17 05:35 Neutrophils % 89.9 % (42.8-82.8) H D 04/07/17 10:45 Lymphocytes % 4.6 % (8-40) L D 04/07/17 10:45 Monocytes % 5.4 % (3.8-10.2) 04/07/17 10:45 Eosinophils % 0.0 % (0-4.5) D 04/07/17 10:45 Basophils % 0.1 % (0-2.0) 04/07/17 10:45 Manual Slide Review No Result Required. 04/08/17 05:35 Puncture Site Left radial 04/07/17 10:25 ABG pH 7.10 (7.35-7.45) L* D 04/07/17 10:25 ABG pCO2 at Pt Temp 22.0 mmHg (35-45) L D 04/07/17 10:25 ABG pO2 at Pt Temp 118.0 mmHg (80-100) H 04/07/17 10:25 ABG HCO3 6.5 meq/L (22-26) L* 04/07/17 10:25 ABG O2 Sat (Measured) 97.1 % (90-98.9) 04/07/17 10:25 ABG O2 Content 14.7 % vol (15-22) L 04/07/17 10:25 ABG Base Excess -21.9 meq/l (-2-2) L* 04/07/17 10:25 Magno Test Positive 04/07/17 10:25 Carboxyhemoglobin 1.3 gm% (0.5-2.0) 04/07/17 10:26 Methemoglobin 0.8 % (0.4-1.5) 04/07/17 10:26 O2 Delivery Device Room air 04/07/17 10:25 Oxygen Flow Rate 120 04/07/17 10:25 Sodium 148 mmol/L (136-145) H 04/08/17 05:35 Potassium 3.5 mmol/L (3.5-5.1) 04/08/17 05:35 Chloride 120 mmol/L (98-107) H 04/08/17 05:35 Carbon Dioxide 22 mmol/L (21-32) 04/08/17 05:35 Anion Gap 6 (8-16) L 04/08/17 05:35 BUN 16 mg/dL (7-18) 04/08/17 05:35 Creatinine 0.8 mg/dL (0.55-1.02) 04/08/17 05:35 Creat Clearance w eGFR 45.82 (>60) 04/07/17 10:45 POC Glucometer 181.34916 UNITS (80-120) 04/08/17 12:06 Random Glucose 82 mg/dL (74-106) 04/08/17 05:35 Calcium 7.1 mg/dL (8.5-10.1) L 04/08/17 05:35 Phosphorus 1.3 mg/dL (2.5-4.9) L D 04/08/17 05:35 Magnesium 2.1 mg/dL (1.8-2.4) 04/08/17 05:35 Total Bilirubin 0.9 mg/dL (0.2-1.0) D 04/07/17 10:45 AST 35 U/L (15-37) D 04/07/17 10:45 ALT 30 U/L (12-78) D 04/07/17 10:45 Alkaline Phosphatase 112 U/L (45-117) D 04/07/17 10:45 Total Protein 8.1 g/dl (6.4-8.2) D 04/07/17 10:45 Albumin 3.9 g/dl (3.4-5.0) D 04/07/17 10:45 Lipase 76 U/L (73-393) 04/07/17 10:45 Serum , Qual Negative 04/07/17 10:45 Urine Color Straw 04/07/17 10:45 Urine Appearance Clear 04/07/17 10:45 Urine pH 5.0 (5.0-8.0) 04/07/17 10:45 Ur Specific [place] 1.017 (1.001-1.035) 04/07/17 10:45 Urine Protein Negative (NEGATIVE) 04/07/17 10:45 Urine Glucose (UA) 3+ (NEGATIVE) H 04/07/17 10:45 Urine Ketones 2+ (NEGATIVE) H 04/07/17 10:45 Urine Blood 1+ (NEGATIVE) H 04/07/17 10:45 Urine Nitrite Negative (NEGATIVE) 04/07/17 10:45 Urine Bilirubin Negative (NEGATIVE) 04/07/17 10:45 Urine Acetone Cancelled 04/07/17 11:47 Urine Urobilinogen Negative mg/dL (0.2-1.0) 04/07/17 10:45 Ur Leukocyte Esterase Negative (NEGATIVE) 04/07/17 10:45 Urine WBC (Auto) 2 /hpf (3-5) 04/07/17 10:45 Urine RBC (Auto) <1 /hpf (0-3) 04/07/17 10:45 Ur Epithelial Cells Rare /HPF (FEW) 04/07/17 10:45 Urine Mucus Rare 04/07/17 10:45 Acetone, Qual Positive large 3+ (NEGATIVE) H 04/07/17 11:47 Microbiology 04/07/17 10:45 Urine - Urine Clean Catch Urine Culture - Final NO GROWTH OBTAINED ASSESSMENT AND PLAN: 26 yof with PMHx of type I DM on insulin pump, with numerous admissions for DKA , last in 02/2017, comes back with an episode of vomiting followed by ? hemetemesis, DKA. -DKA -Vomiting follow up ?hemetemesis, ?Ana Torres vs mild capillary tear -Hypokalemia -Hypophosphatemia Plan: Anion gap closed. Blood sugars improved. Insulin drip d/casper this AM, blood sugars improved. Patient placed back on home pump (1.1 rate 6 AM -10 Pm and 0. rate 10 pm-6 AM). Minimal PO but slowly improving. Change IVF to NS with 20 meq at 75 ml/hr. Change blood sugars to AC and HS. Replete K and phos. REpeat BMP after repletion. H/h trended down likely from aggressive hydration, h/h around prior baseline. No further episodes of vomitus. Off protonix drip. Change to Protonix 40 mg PO with outpatient GI follow up unless new concerns inhouse. DVTPPX with SCDs Hold off on d/c today as still with minimal oral intake. Transfer to tele later if repeat blood work and sugars stable. Central line for access. Plan discussed with patient, RN and ICU attending. Total critical care time spent in ICU 35min.
[2017-04-08 14:40] LABS: BASOPHIL 0.4 % (0-2.0); EOSINOPHIL 0.2 % (0-4.5); MCH 30.4 pg (25.7-33.7); MCHC 32.5 g/dl (32.0-36.0); MEAN CELL VOLUME 93.5 fl (80-96); MEAN PLT VOLUME 8.6 fl (7.5-11.1); NEUTROPHILS 73.6 % (42.8-82.8); PLATELET COUNT 213 K/MM3 (134-434); RDW 15.5 % (11.6-15.6); WHITE BLOOD COUNT 14.1 K/mm3 (4.0-10.0)
[2017-04-08 15:40] LABS: ANION GAP 12 (8-16); CO2 17 mmol/L (21-32); CREATININE 0.7 mg/dL (0.55-1.02); GLUCOSE,RANDOM 242 mg/dL (74-106)
[2017-04-08 15:45] LABS: CALCIUM 6.8 mg/dL (8.5-10.1)
[2017-04-08] MEDS ORDERED: SODIUM CHLORIDE 1,000 ML IV STA (15:51)
[2017-04-08] MEDS ORDERED: CALCIUM GLUCONATE 10% - 1,000 MG/10 ML VIAL IVPB ONE (15:52)
[2017-04-08] MEDS: INSULIN SLIDING SCALE (NOVOLOG) 1 VIAL SQ SCH ×3 (15:52→22:07)
[2017-04-08] MEDS ORDERED: INSULIN DETEMIR 100 UNITS/ML MDV SQ ONE ×2 (15:59→21:19)
--- NOTE | 2017-04-08 16:25 | CON.GI ---
Consult Consult Specialty:: Gastroenterology Referred by:: hospitalist - History of Present Illness Chief Complaint: intractable vomiting, coffee ground vomitus History of Present Illness: 26 y/o F was admitted because of DKA associated with intractable vomiting associated with coffee ground vomitus and abdominal pain. The abdominal pain and vomiting has resolved. The DKA is resolving. The hemoglobin was noted to have decrerased after hydration. - History Source History Provided By: Patient ( type I on insulin pump) - Past Medical History ...LMP: 02/21/17 Endocrine: Yes: Diabetes Mellitus (Type 1 DM) - Alcohol/Substance Use Hx Alcohol Use: No - Smoking History Smoking history: Never smoked Have you smoked in the past 12 months: No - Social History Usual Living Arrangement: Alone ADL: Independent Home Medications - Allergies Allergies/Adverse Reactions: Allergies Allergy/AdvReac Type Severity Reaction Status Date / Time No Known Allergies Allergy Verified 03/08/17 08:36 - Home Medications Home Medications: Ambulatory Orders Blood Sugar Diagnostic [Blood Glucose Test Strip] 1 each MC DAILY #60 strip Cephalexin [Keflex] 500 mg PO BID #8 capsule 03/10/17 Insulin (Levemir) [Levemir Vial] 15 units SQ BID #1 vial 03/10/17 Insulin Pump/Infus. Set/Meter [Accu-Chek Combo System] 1 each MC ASDIR #1 each 03/10/17 Insulin Sliding Scale [Novolog Vial Sliding Scale -] See Protocol SQ ACHS #30 units 03/10/17 Review of Systems - Review of Systems Constitutional: denies: Fever, Lethargy HENT: denies: Difficult Swallowing Cardiovascular: denies: Chest Pain Respiratory: denies: Cough Gastrointestinal: denies: No Symptoms, Abdominal Pain, Bloating, Constipation, Diarrhea, Dysphagia, Indigestion, Melena, Nausea, Rectal Bleeding, Vomiting, Vomiting Blood, Other Physical Exam-GI Vital Signs: Vital Signs Temperature 99.2 F 04/08/17 10:00 Pulse Rate 100 H 04/08/17 16:00 Respiratory Rate 16 04/08/17 16:00 Blood Pressure 112/58 04/08/17 16:00 O2 Sat by Pulse Oximetry (%) 97 04/07/17 16:19 Constitutional: Yes: Well Nourished Eyes: Yes: Conjunctiva Clear HENT: Yes: Atraumatic Neck: Yes: Supple Respiratory: Yes: CTA Bilaterally ...Palpate: Yes: Soft. No: Firm/Rigid, Guarding, Hepatomegaly, Mass, Pulsatile Mass, Splenomegaly, Tenderness Labs: CBC, BMP 04/08/17 14:20 04/08/17 14:20 Problem List - Problems (1) GI bleeding Assessment/Plan: R> continue IV Protonix Reglan 5mg 30 min AC For EGD once medically cleared Code(s): K92.2 - GASTROINTESTINAL HEMORRHAGE, UNSPECIFIED
[2017-04-08] MEDS: METOCLOPRAMIDE HCL 10 MG TABLET (FP) PO SCH (18:16)
[2017-04-08 19:41] LABS: ANION GAP 8 (8-16); CALCIUM 7.1 mg/dL (8.5-10.1); CO2 20 mmol/L (21-32); CREATININE 0.8 mg/dL (0.55-1.02); GLUCOSE,RANDOM 153 mg/dL (74-106); MAGNESIUM 1.9 mg/dL (1.8-2.4)
[2017-04-08 19:46] LABS: PHOSPHOROUS 1.2 mg/dL (2.5-4.9)
[2017-04-08] MEDS ORDERED: INSULIN (NOVOLOG) ASPART 100 UNITS/ML 10ML VIAL SQ ONE (21:19)
[2017-04-08] MEDS: CHLORHEXIDINE GLUCONATE 4% CLEANSER FOR DECOLONIZATION TP SCH (22:07)
[2017-04-08 23:23] LABS: ANION GAP 7 (8-16); CALCIUM 7.2 mg/dL (8.5-10.1); CO2 23 mmol/L (21-32); CREATININE 0.5 mg/dL (0.55-1.02); GLUCOSE,RANDOM 66 mg/dL (74-106)
[2017-04-08] MEDS ORDERED: DEXTROSE 50%-WATER - 25 GM/50 ML VIAL ONE (23:23)
[2017-04-08] MEDS ORDERED: DEXTROSE 50%-WATER - 25 GM/50 ML VIAL IVPUSH ONE (23:33)
[2017-04-09] MEDS ORDERED: DEXTROSE 50%-WATER 25 GM/50 ML DISP.SYRIN ONE (02:46)
[2017-04-09] MEDS ORDERED: DEXTROSE 50%-WATER - 25 GM/50 ML VIAL IVPUSH ONE (02:57)
[2017-04-09] MEDS ORDERED: D5-1/2NS+20 MEQ KCL - 20 MEQ/1,000 ML INFUS.BAG IV SCH (03:00)
[2017-04-09] MEDS: METOCLOPRAMIDE HCL 10 MG TABLET (FP) PO SCH ×3 (06:05→16:18)
[2017-04-09] MEDS: INSULIN SLIDING SCALE (NOVOLOG) 1 VIAL SQ SCH ×2 (06:12→11:30)
[2017-04-09 06:27] LABS: MCH 30.9 pg (25.7-33.7); MCHC 33.7 g/dl (32.0-36.0); MEAN CELL VOLUME 91.7 fl (80-96); MEAN PLT VOLUME 8.8 fl (7.5-11.1); PLATELET COUNT 198 K/MM3 (134-434); RDW 15.6 % (11.6-15.6)
[2017-04-09 06:50] LABS: ANION GAP 9 (8-16); CALCIUM 7.3 mg/dL (8.5-10.1); CO2 23 mmol/L (21-32); CREATININE 0.5 mg/dL (0.55-1.02); GLUCOSE,RANDOM 95 mg/dL (74-106)
[2017-04-09] MEDS ORDERED: INSULIN DETEMIR 100 UNITS/ML MDV SQ SCH ×3 (07:00→22:00)
--- NOTE | 2017-04-09 08:15 | PN ---
Physical Exam: SUBJECTIVE: Patient seen and examined. Looks tired, but states she improved since yesterday. DID not each much dinner yesterday, encouraged to eat today. No more episodes of vomitting, no abd pain. OBJECTIVE: Vital Signs Period Temp Pulse Resp BP Sys/Hwang Pulse Ox Last 24 Hr 98.6 F-99.2 F 82-104 15-20 106-123/58-90 97 GEN: AAOx3, NAD, Lying comfortably but visibly tired HEENT: PERRLA, EOMi CV: S1, S2, RRR LUNG: CTABL ABD: Soft, NT, ND, normoactive BS MSK: No edema, no erythema NEURO: CN 2-12 grossly intact, no sensation or MSK deficits Laboratory Last Values WBC 10.0 K/mm3 (4.0-10.0) 04/09/17 05:00 RBC 3.11 M/mm3 (3.60-5.2) L 04/09/17 05:00 Hgb 9.6 GM/dL (10.7-15.3) L 04/09/17 05:00 Hct 28.5 % (32.4-45.2) L 04/09/17 05:00 MCV 91.7 fl (80-96) 04/09/17 05:00 MCH 30.9 pg (25.7-33.7) 04/09/17 05:00 MCHC 33.7 g/dl (32.0-36.0) 04/09/17 05:00 RDW 15.6 % (11.6-15.6) 04/09/17 05:00 Plt Count 198 K/MM3 (134-434) 04/09/17 05:00 MPV 8.8 fl (7.5-11.1) 04/09/17 05:00 Neutrophils % 73.6 % (42.8-82.8) 04/08/17 14:20 Lymphocytes % 18.4 % (8-40) D 04/08/17 14:20 Monocytes % 7.4 % (3.8-10.2) 04/08/17 14:20 Eosinophils % 0.2 % (0-4.5) D 04/08/17 14:20 Basophils % 0.4 % (0-2.0) D 04/08/17 14:20 Manual Slide Review No Result Required. 04/08/17 05:35 Puncture Site Left radial 04/07/17 10:25 ABG pH 7.10 (7.35-7.45) L* D 04/07/17 10:25 ABG pCO2 at Pt Temp 22.0 mmHg (35-45) L D 04/07/17 10:25 ABG pO2 at Pt Temp 118.0 mmHg (80-100) H 04/07/17 10:25 ABG HCO3 6.5 meq/L (22-26) L* 04/07/17 10:25 ABG O2 Sat (Measured) 97.1 % (90-98.9) 04/07/17 10:25 ABG O2 Content 14.7 % vol (15-22) L 04/07/17 10:25 ABG Base Excess -21.9 meq/l (-2-2) L* 04/07/17 10:25 Magno Test Positive 04/07/17 10:25 Carboxyhemoglobin 1.3 gm% (0.5-2.0) 04/07/17 10:26 Methemoglobin 0.8 % (0.4-1.5) 04/07/17 10:26 O2 Delivery Device Room air 04/07/17 10:25 Oxygen Flow Rate 120 04/07/17 10:25 Sodium 140 mmol/L (136-145) 04/09/17 05:00 Potassium 3.7 mmol/L (3.5-5.1) 04/09/17 05:00 Chloride 108 mmol/L (98-107) H 04/09/17 05:00 Carbon Dioxide 23 mmol/L (21-32) 04/09/17 05:00 Anion Gap 9 (8-16) 04/09/17 05:00 BUN 7 mg/dL (7-18) D 04/09/17 05:00 Creatinine 0.5 mg/dL (0.55-1.02) L 04/09/17 05:00 Creat Clearance w eGFR 45.82 (>60) 04/07/17 10:45 POC Glucometer 125.65598 UNITS (80-120) 04/09/17 04:27 Random Glucose 95 mg/dL (74-106) D 04/09/17 05:00 Calcium 7.3 mg/dL (8.5-10.1) L 04/09/17 05:00 Phosphorus 1.2 mg/dL (2.5-4.9) L D 04/08/17 16:55 Magnesium 1.9 mg/dL (1.8-2.4) 04/08/17 16:55 Total Bilirubin 0.9 mg/dL (0.2-1.0) D 04/07/17 10:45 AST 35 U/L (15-37) D 04/07/17 10:45 ALT 30 U/L (12-78) D 04/07/17 10:45 Alkaline Phosphatase 112 U/L (45-117) D 04/07/17 10:45 Total Protein 8.1 g/dl (6.4-8.2) D 04/07/17 10:45 Albumin 3.9 g/dl (3.4-5.0) D 04/07/17 10:45 Lipase 76 U/L (73-393) 04/07/17 10:45 Serum , Qual Negative 04/07/17 10:45 Urine Color Straw 04/07/17 10:45 Urine Appearance Clear 04/07/17 10:45 Urine pH 5.0 (5.0-8.0) 04/07/17 10:45 Ur Specific [place] 1.017 (1.001-1.035) 04/07/17 10:45 Urine Protein Negative (NEGATIVE) 04/07/17 10:45 Urine Glucose (UA) 3+ (NEGATIVE) H 04/07/17 10:45 Urine Ketones 2+ (NEGATIVE) H 04/07/17 10:45 Urine Blood 1+ (NEGATIVE) H 04/07/17 10:45 Urine Nitrite Negative (NEGATIVE) 04/07/17 10:45 Urine Bilirubin Negative (NEGATIVE) 04/07/17 10:45 Urine Acetone Cancelled 04/07/17 11:47 Urine Urobilinogen Negative mg/dL (0.2-1.0) 04/07/17 10:45 Ur Leukocyte Esterase Negative (NEGATIVE) 04/07/17 10:45 Urine WBC (Auto) 2 /hpf (3-5) 04/07/17 10:45 Urine RBC (Auto) <1 /hpf (0-3) 04/07/17 10:45 Ur Epithelial Cells Rare /HPF (FEW) 04/07/17 10:45 Urine Mucus Rare 04/07/17 10:45 Acetone, Qual Positive large 3+ (NEGATIVE) H 04/07/17 11:47 Active Medications Generic Name Dose Route Start Last Admin Trade Name Freq PRN Reason Stop Dose Admin Chlorhexidine Gluconate 1 applic 04/07/17 22:00 04/08/17 22:07 Hibiclens For Decolonization - TP 1 applic HS CADEN Administration Insulin Aspart 1 vial 04/08/17 13:45 04/09/17 06:12 Novolog Vial Sliding Scale - SQ Not Given ACHS [facility] Protocol Insulin Detemir 5 units 04/09/17 08:00 Levemir Vial SQ BID@0700,2200 CADEN Metoclopramide HCl 5 mg 04/08/17 17:15 04/09/17 06:05 Reglan - PO 5 mg TIDAC CADEN Administration Mupirocin 1 applic 04/07/17 22:00 04/08/17 22:06 Bactroban Ointment (For Decolonization) - NS 04/12/17 21:59 1 applic BID CADEN Administration Ondansetron HCl 4 mg 04/07/17 13:01 04/07/17 22:31 Zofran Injection IVPUSH 4 mg Q4H PRN Administration NAUSEA AND/OR VOMITING Pantoprazole Sodium 40 mg 04/08/17 09:45 04/08/17 10:02 Protonix - PO 40 mg DAILY CADEN Administration ASSESSMENT/PLAN: 26yo F with PMHX of Type 1 DM on an insulin pump, with numerous admissions for DKA in the past, latest in 02/2017, who presented with episodes of vomiting followed by coffee ground emesis, found to be in DKA. # Diabetic Ketoacidosis - Could be secondary to insulin pump malfunctioning vs recent stressors. Managed in ICU with insulin drip, and now gap closed. When patient was placed back on home insulin pump, her gap started opening and bicarbonate level dropped. There was concern about the pump function. Endocrine consult appreciated. Currently on Levemir 10BID. If high tmrw AM consider Levemir 12 BID # Hematemesis - Pt had intractable vomitting (likely from DKA) followed by mild coffee ground emesis. Could be small Ana Torres tear. H/H around baseline. No further episodes of vomiting. On Protonix 40mg PO. GI consulted, plan is EGD once medically cleared, can schedule outpatient # Leukocytosis - no signs or symptoms of infection, could be secondary to DKA state, improving # FEN - No fluids, diabetic diet # PPX - SCDs, Protonix PO, PT not needed as pt is ambulatory # Dispo - Transfer to tele if blood sugars remain stable and 7pm BMP is good d/w Dr Rosy Sy MD - PGY1 Internal Medicine Visit type - Emergency Visit Emergency Visit: No - New Patient This patient is new to me today: No - Critical Care Critical Care patient: No - Discharge Referral Referred to [facility] Med P.C.: No
[2017-04-09] MEDS ORDERED: BENZOCAINE/MENTH/CETYLPYRD CL 1 EACH LOZENGE MM PRN ×2 (08:45→18:42)
[2017-04-09] MEDS ORDERED: INSULIN DETEMIR 100 UNITS/ML MDV SQ ONE ×2 (08:56→11:39)
[2017-04-09] MEDS: PANTOPRAZOLE 40 MG TABLET (FP) PO SCH (10:15)
[2017-04-09] MEDS: MUPIROCIN 2% TOPICAL OINTMENT FOR DECOLONIZATION NS SCH ×2 (11:00→21:42)
--- NOTE | 2017-04-09 11:20 | CONSULT ---
Consult Consult Specialty:: Endocrinology Referred by:: Dr Gallegos Reason for Consultation:: DKA - History of Present Illness Chief Complaint: Nausea, vomiting History of Present Illness: This is a 26 year old female with h/o T1DM since age 13, on insulin pump for last one year presented to ED with complaints of nausea and vomiting (x10) and abdominal pain and found to have DKA. Pt says the nausea started around 3 a.m., found her blood sugar to be "hi", took 10 units of bolus via pump with no improvement in blood sugar or symptoms. EMS was then called. Pt admitted to ICU and treated with IV insulin with improvement in symptoms and resolutions of DKA. Pt says she used to get admitted to the hospital for DKA when she was a teenager. Didn't have any episode for a few years until about a year ago when she was put on the Insulin pump. Had 3 admissions for DKA since then. Has social issues and is currently living in a mcf[facility] and goes to [facility]. Her A1c dropped from 15 to 11 after starting the pump. She however has not been doing the boluses regularly as prescribed. ER course was notable for: PH 7.1; HCO3 : 6.5 AG 27; with leukocytosis. Current CO2 23. Denies any symptoms now. Home pump settings: Basal 6 AM to 10 PM 1.1 10PM to 6AM 0.9 Boluses: CHO ratio 1 :12 Sensitivity 1:50 - History Source History Provided By: Patient, Medical Record Limitations to Obtaining History: No Limitations - Past Medical History ...LMP: 02/21/17 Endocrine: Yes: Diabetes Mellitus (Type 1 DM) - Alcohol/Substance Use Hx Alcohol Use: No - Smoking History Smoking history: Never smoked Have you smoked in the past 12 months: No - Social History Usual Living Arrangement: Alone ADL: Independent Home Medications - Allergies Allergies/Adverse Reactions: Allergies Allergy/AdvReac Type Severity Reaction Status Date / Time No Known Allergies Allergy Verified 03/08/17 08:36 - Home Medications Home Medications: Ambulatory Orders Blood Sugar Diagnostic [Blood Glucose Test Strip] 1 each MC DAILY #60 strip Cephalexin [Keflex] 500 mg PO BID #8 capsule 03/10/17 Insulin (Levemir) [Levemir Vial] 15 units SQ BID #1 vial 03/10/17 Insulin Pump/Infus. Set/Meter [Accu-Chek Combo System] 1 each ASDIR #1 each 03/10/17 Insulin Sliding Scale [Novolog Vial Sliding Scale -] See Protocol SQ ACHS #30 units 03/10/17 Family Disease History - Family Disease History Other Family History: No family h/o DM Review of Systems - Review of Systems Constitutional: reports: Malaise Eyes: reports: No Symptoms HENT: reports: No Symptoms Neck: reports: No Symptoms Cardiovascular: reports: No Symptoms Respiratory: reports: No Symptoms Gastrointestinal: reports: No Symptoms Genitourinary: reports: No Symptoms Breasts: reports: No Symptoms Reported Musculoskeletal: reports: No Symptoms Integumentary: reports: No Symptoms Neurological: reports: No Symptoms Endocrine: reports: No Symptoms Hematology/Lymphatic: reports: No Symptoms Psychiatric: reports: No Symptoms Physical Exam Vital Signs: Vital Signs Temperature 97.6 F 04/09/17 10:00 Pulse Rate 91 H 04/09/17 10:00 Respiratory Rate 17 04/09/17 10:00 Blood Pressure 116/85 04/09/17 10:00 O2 Sat by Pulse Oximetry (%) 97 04/08/17 21:00 Constitutional: Yes: No Distress, Calm Eyes: Yes: Conjunctiva Clear, EOM Intact HENT: Yes: Atraumatic, Normocephalic Neck: Yes: Supple, Trachea Midline Cardiovascular: Yes: Regular Rate and Rhythm Respiratory: Yes: Regular, CTA Bilaterally Gastrointestinal: Yes: Normal Bowel Sounds, Soft Renal/: Yes: WNL Musculoskeletal: Yes: WNL Extremities: Yes: WNL Edema: No Neurological: Yes: Alert, Oriented Labs: CBC, BMP 04/09/17 05:00 04/09/17 05:00 Problem List - Problems (1) DKA (diabetic ketoacidoses) Code(s): E13.10 - OTH DIABETES MELLITUS WITH KETOACIDOSIS WITHOUT COMA Qualifiers: Diabetes mellitus type: other specified (including ADOLFO) Diabetes mellitus complication detail: without coma Qualified Code(s): E13.10 - Other specified diabetes mellitus with ketoacidosis without coma (2) Type 1 diabetes mellitus Code(s): E10.9 - TYPE 1 DIABETES MELLITUS WITHOUT COMPLICATIONS Assessment/Plan A/P: T1DM: Levemir 10 units BID Novolog SS coverage IV hydration as necessary Advance diet as tolerated Will f/U
--- NOTE | 2017-04-09 12:05 | PN ---
Teaching Attending Note Name of Resident: Garret Coulter ATTENDING PHYSICIAN STATEMENT I saw and evaluated the patient. I reviewed the resident's note and discussed the case with the resident. I agree with the resident's findings and plan as documented. SUBJECTIVE: Patient seen and examined in the ICU. Denies CP or SOB. Off insulin drip. Intake & Output 04/06/17 04/07/17 04/08/17 04/09/17 23:59 23:59 23:59 23:59 Intake Total 5841 840 Balance 5841 840 Weight 105 lb 107 lb 12.897 oz Last Vital Signs Temp Pulse Resp BP Pulse Ox 97.6 F 91 H 17 116/85 97 04/09/17 10:00 04/09/17 10:00 04/09/17 10:00 04/09/17 10:00 04/08/17 21:00 Active Medications Benzocaine/Menthol (Cepacol Lozenge -) 1 each MM PRN PRN PRN Reason: SORE THROAT Chlorhexidine Gluconate (Hibiclens For Decolonization -) 1 applic TP HS [facility] Last Admin: 04/08/17 22:07 Dose: 1 applic Insulin Aspart (Novolog) 0 units SQ HS [facility] PRN Reason: Protocol Insulin Aspart (Novolog Vial Sliding Scale -) 1 vial SQ TIDAC [facility] PRN Reason: Protocol Insulin Detemir (Levemir Vial) 10 units SQ BID@0700,2200 [facility] Metoclopramide HCl (Reglan -) 5 mg PO TIDAC [facility] Last Admin: 04/09/17 06:05 Dose: 5 mg Mupirocin (Bactroban Ointment (For Decolonization) -) 1 applic NS BID [facility] Stop: 04/12/17 21:59 Last Admin: 04/09/17 11:00 Dose: 1 applic Ondansetron HCl (Zofran Injection) 4 mg IVPUSH Q4H PRN PRN Reason: NAUSEA AND/OR VOMITING Last Admin: 04/07/17 22:31 Dose: 4 mg Pantoprazole Sodium (Protonix -) 40 mg PO DAILY [facility] Last Admin: 04/09/17 10:15 Dose: 40 mg Constitutional: Yes: No Distress Eyes: Yes: WNL, Conjunctiva Clear, EOM Intact HENT: Yes: WNL, Atraumatic, Normocephalic Neck: Yes: WNL, Supple, Trachea Midline Cardiovascular: Yes: WNL, Regular Rate and Rhythm, Tachycardia Respiratory: Yes: WNL, Regular, CTA Bilaterally Gastrointestinal: Yes: WNL, Normal Bowel Sounds ...Rectal Exam: Yes: Deferred Renal/: Yes: WNL Breast(s): Yes: WNL Musculoskeletal: Yes: WNL Extremities: Yes: WNL Edema: No Peripheral Pulses WNL: Yes Integumentary: Yes: WNL Neurological: Yes: WNL, Oriented, Babinski positive ...Motor Strength: WNL Psychiatric: Yes: WNL, Alert, Oriented Labs: Laboratory Results - last 24 hr 04/07/17 04/07/17 04/08/17 10:25 15:24 12:06 WBC RBC Hgb Hct MCV MCH MCHC RDW Plt Count MPV Neutrophils % Lymphocytes % Monocytes % Eosinophils % Basophils % Manual Slide Review Sodium Potassium Chloride Carbon Dioxide Anion Gap BUN Creatinine POC Glucometer > 400 > 400 181.55815 Random Glucose Calcium Phosphorus Magnesium 04/08/17 04/08/17 04/08/17 13:49 14:20 14:20 WBC 14.1 H RBC 3.23 L Hgb 9.8 L Hct 30.2 L MCV 93.5 MCH 30.4 MCHC 32.5 RDW 15.5 Plt Count 213 MPV 8.6 Neutrophils % 73.6 Lymphocytes % 18.4 D Monocytes % 7.4 Eosinophils % 0.2 D Basophils % 0.4 D Manual Slide Review Sodium 139 Potassium 4.1 Chloride 110 H Carbon Dioxide 17 L D Anion Gap 12 BUN 13 Creatinine 0.7 POC Glucometer 291.58821 Random Glucose 242 H D Calcium 6.8 L* Phosphorus 3.0 D Magnesium 2.0 04/08/17 04/08/17 04/08/17 16:55 22:05 22:40 WBC RBC Hgb Hct MCV MCH MCHC RDW Plt Count MPV Neutrophils % Lymphocytes % Monocytes % Eosinophils % Basophils % Manual Slide Review Sodium 142 142 Potassium 3.6 3.6 Chloride 114 H 112 H Carbon Dioxide 20 L 23 Anion Gap 8 7 L BUN 11 10 Creatinine 0.8 0.5 L D POC Glucometer 110.11854 Random Glucose 153 H D 66 L D Calcium 7.1 L 7.2 L Phosphorus 1.2 L D Magnesium 1.9 11/04/08/17 04/09/17 23:20 23:56 00:38 WBC RBC Hgb Hct MCV MCH MCHC RDW Plt Count MPV Neutrophils % Lymphocytes % Monocytes % Eosinophils % Basophils % Manual Slide Review Sodium Potassium Chloride Carbon Dioxide Anion Gap BUN Creatinine POC Glucometer 56.12708 171.96478 125.72037 Random Glucose Calcium Phosphorus Magnesium 04/09/17 04/09/17 04/09/17 02:44 04:27 05:00 WBC 10.0 RBC 3.11 L Hgb 9.6 L Hct 28.5 L MCV 91.7 MCH 30.9 MCHC 33.7 RDW 15.6 Plt Count 198 MPV 8.8 Neutrophils % Lymphocytes % Monocytes % Eosinophils % Basophils % Manual Slide Review No Result Required. Sodium Potassium Chloride Carbon Dioxide Anion Gap BUN Creatinine POC Glucometer 60.42196 125.56337 Random Glucose Calcium Phosphorus Magnesium 04/09/17 05:00 WBC RBC Hgb Hct MCV MCH MCHC RDW Plt Count MPV Neutrophils % Lymphocytes % Monocytes % Eosinophils % Basophils % Manual Slide Review Sodium 140 Potassium 3.7 Chloride 108 H Carbon Dioxide 23 Anion Gap 9 BUN 7 D Creatinine 0.5 L POC Glucometer Random Glucose 95 D Calcium 7.3 L Phosphorus Magnesium Problem List - Problems (1) DKA (diabetic ketoacidoses) Code(s): E13.10 - OTH DIABETES MELLITUS WITH KETOACIDOSIS WITHOUT COMA Qualifiers: Diabetes mellitus type: other specified (including ADOLFO) Diabetes mellitus complication detail: without coma Qualified Code(s): E13.10 - Other specified diabetes mellitus with ketoacidosis without coma (2) Type 1 diabetes mellitus Code(s): E10.9 - TYPE 1 DIABETES MELLITUS WITHOUT COMPLICATIONS Assessment/Plan ASSESS: This is a 26 y/o woman w/ type I DM on an insulin pump w/ numerous admits for DKA admitted now w/ recurrent DKA m/l in the setting of a viral illness. PLAN: Insulin protocol per Endocrine Miko for N/V PPI Monitor off ABX SCDs Floor Dr Greenberg
--- NOTE | 2017-04-09 12:24 | PN ---
Physical Exam: SUBJECTIVE: The patient is a 26F with a PMH of T1DM on an insulin pump who presented to the ED with nausea and vomiting and was found to be in DKA. The patient had an episode of DKA last month. The patient was found to have a BG of 760 and AG of 27, pH of 7.1, HCO3 of 6.5 and 2+ ketones. Insulin drip and IVF's started. Overnight the patient had her insulin drip d/c but her BG increased and the pump was d/c. Drip was continued. At 2326 overnight, the patient had a BG of 56 and was given 1 amp of D50. The patient has no acute complaints. The patient denies CP, SOB, nausea, vomiting. OBJECTIVE: Vital Signs Period Temp Pulse Resp BP Sys/Hwang Pulse Ox Last 24 Hr 97.6 F-99 F 82-104 15-20 106-123/58-90 97 GENERAL: The patient is awake, alert, and fully oriented, in no acute distress. HEAD: Normal with no signs of trauma. EYES: PERRL, extraocular movements intact, sclera anicteric, conjunctiva clear. No ptosis. ENT: Ears normal, nares patent, oropharynx clear without exudates, moist mucous membranes. NECK: Trachea midline, full range of motion, supple. LUNGS: Breath sounds equal, clear to auscultation bilaterally, no wheezes, no crackles, no accessory muscle use. HEART: Regular rate and rhythm, S1, S2 without murmur, rub or gallop. ABDOMEN: Soft, nontender, nondistended, normoactive bowel sounds, no guarding, no rebound, no hepatosplenomegaly, no masses. EXTREMITIES: 2+ pulses, warm, well-perfused, no edema. NEUROLOGICAL: Cranial nerves II through XII grossly intact. Normal speech, gait not observed. PSYCH: Normal mood, normal affect. SKIN: Warm, dry, normal turgor, no rashes or lesions noted Laboratory Results - last 24 hr 04/07/17 04/07/17 04/08/17 10:25 15:24 12:06 WBC RBC Hgb Hct MCV MCH MCHC RDW Plt Count MPV Neutrophils % Lymphocytes % Monocytes % Eosinophils % Basophils % Manual Slide Review Sodium Potassium Chloride Carbon Dioxide Anion Gap BUN Creatinine POC Glucometer > 400 > 400 181.24957 Random Glucose Calcium Phosphorus Magnesium 04/08/17 04/08/17 04/08/17 13:49 14:20 14:20 WBC 14.1 H RBC 3.23 L Hgb 9.8 L Hct 30.2 L MCV 93.5 MCH 30.4 MCHC 32.5 RDW 15.5 Plt Count 213 MPV 8.6 Neutrophils % 73.6 Lymphocytes % 18.4 D Monocytes % 7.4 Eosinophils % 0.2 D Basophils % 0.4 D Manual Slide Review Sodium 139 Potassium 4.1 Chloride 110 H Carbon Dioxide 17 L D Anion Gap 12 BUN 13 Creatinine 0.7 POC Glucometer 291.09102 Random Glucose 242 H D Calcium 6.8 L* Phosphorus 3.0 D Magnesium 2.0 04/08/17 04/08/17 04/08/17 16:55 22:05 22:40 WBC RBC Hgb Hct MCV MCH MCHC RDW Plt Count MPV Neutrophils % Lymphocytes % Monocytes % Eosinophils % Basophils % Manual Slide Review Sodium 142 142 Potassium 3.6 3.6 Chloride 114 H 112 H Carbon Dioxide 20 L 23 Anion Gap 8 7 L BUN 11 10 Creatinine 0.8 0.5 L D POC Glucometer 110.15253 Random Glucose 153 H D 66 L D Calcium 7.1 L 7.2 L Phosphorus 1.2 L D Magnesium 1.9 04/08/17 04/08/17 04/09/17 23:20 23:56 00:38 WBC RBC Hgb Hct MCV MCH MCHC RDW Plt Count MPV Neutrophils % Lymphocytes % Monocytes % Eosinophils % Basophils % Manual Slide Review Sodium Potassium Chloride Carbon Dioxide Anion Gap BUN Creatinine POC Glucometer 56.35891 171.03712 125.33475 Random Glucose Calcium Phosphorus Magnesium 04/09/17 04/09/17 04/09/17 02:44 04:27 05:00 WBC 10.0 RBC 3.11 L Hgb 9.6 L Hct 28.5 L MCV 91.7 MCH 30.9 MCHC 33.7 RDW 15.6 Plt Count 198 MPV 8.8 Neutrophils % Lymphocytes % Monocytes % Eosinophils % Basophils % Manual Slide Review No Result Required. Sodium Potassium Chloride Carbon Dioxide Anion Gap BUN Creatinine POC Glucometer 60.54147 125.00895 Random Glucose Calcium Phosphorus Magnesium 04/09/17 05:00 WBC RBC Hgb Hct MCV MCH MCHC RDW Plt Count MPV Neutrophils % Lymphocytes % Monocytes % Eosinophils % Basophils % Manual Slide Review Sodium 140 Potassium 3.7 Chloride 108 H Carbon Dioxide 23 Anion Gap 9 BUN 7 D Creatinine 0.5 L POC Glucometer Random Glucose 95 D Calcium 7.3 L Phosphorus Magnesium Active Medications Generic Name Dose Route Start Last Admin Trade Name Freq PRN Reason Stop Dose Admin Benzocaine/Menthol 1 each 04/09/17 08:45 Cepacol Lozenge - MM PRN PRN SORE THROAT Chlorhexidine Gluconate 1 applic 04/07/17 22:00 04/08/17 22:07 Hibiclens For Decolonization - TP 1 applic HS CADEN Administration Insulin Aspart 0 units 04/09/17 22:00 Novolog SQ HS CADEN Protocol Insulin Aspart 1 vial 04/09/17 16:30 Novolog Vial Sliding Scale - SQ TIDAC CADEN Protocol Insulin Detemir 10 units 04/09/17 22:00 Levemir Vial SQ BID@0700,2200 [facility] Metoclopramide HCl 5 mg 04/08/17 17:15 04/09/17 06:05 Reglan - PO 5 mg TIDAC CADEN Administration Mupirocin 1 applic 04/07/17 22:00 04/08/17 22:06 Bactroban Ointment (For Decolonization) - NS 04/12/17 21:59 1 applic BID CADEN Administration Ondansetron HCl 4 mg 04/07/17 13:01 04/07/17 22:31 Zofran Injection IVPUSH 4 mg Q4H PRN Administration NAUSEA AND/OR VOMITING Pantoprazole Sodium 40 mg 04/08/17 09:45 04/09/17 10:15 Protonix - PO 40 mg DAILY CADEN Administration ASSESSMENT/PLAN: The patient is a 26F with a PMH of T1DM on an insulin pump who presented in DKA. IVF and insulin ggt started. Patient is currently stable. Neuro: - A&Ox3 - At baseline for patient CV: - None Pulm: - None Renal: - None : - None GI: Hematemesis - GI to scope when patient is stable (Dr. Wray) - 4 Zofran q4H PRN ordered for nausea control ID: - None Hem/Onc: - H/H decreased likely 2/2 to aggressive hydration - Trend. Currently 9.6/28.5. Endocrine: DKA likely 2/2 to pump malfunction - Patient states she is feeling better today - A from 7. Stable. - Electrolyte abnormalities normalizing - Currently on levimir 12 BID w/ novolog 1 ACHS - Pump continued to be defective overnight; pt states she is meeting with the pump rep MSK: - None PPX: - None FEN (Fluids, electrolytes, nutrition): - Diabetic diet Dispo: - Transfer to med/surg
[2017-04-09] MEDS ORDERED: PT OWN MED DRAWER 7, Y5N ONE (14:12)
--- NOTE | 2017-04-09 14:45 | EKG ---
Test Reason : Blood Pressure : / mmHG Vent. Rate : 119 BPM Atrial Rate : 119 BPM P-R Int : 140 ms QRS Dur : 066 ms QT Int : 324 ms P-R-T Axes : 072 078 064 degrees QTc Int : 455 ms SINUS TACHYCARDIA OTHERWISE NORMAL ECG WHEN COMPARED WITH ECG OF 08-MAR-2017 09:36, NO SIGNIFICANT CHANGE WAS FOUND Confirmed by CHUN JEFFRIES MD ([id number]) on 04/09/2017 2:44:44 PM Referred By: Confirmed By:CHUN JEFFRIES MD
[2017-04-09] MEDS ORDERED: INSULIN SLIDING SCALE (NOVOLOG) 1 VIAL SQ SCH ×2 (16:30→22:00)
--- NOTE | 2017-04-09 17:42 | PN ---
Teaching Attending Note Name of Resident: Gisele Sy ATTENDING PHYSICIAN STATEMENT Time of evaluation: 9:35 AM I saw and evaluated the patient. I reviewed the resident's note and discussed the case with the resident. I agree with the resident's findings and plan as documented. SUBJECTIVE: Patient seen and examined. Feels better, no further vomiting, PO intake has improved, still with poor appetite. OBJECTIVE: Vital Signs Period Temp Pulse Resp BP Sys/Hwang Pulse Ox Last 24 Hr 97.6 F-99.2 F 82-106 15-20 100-123/75-90 97 Intake & Output 04/06/17 04/07/17 04/08/17 04/09/17 23:59 23:59 23:59 23:59 Intake Total 5841 1200 Balance 5841 1200 Weight 105 lb 107 lb 12.897 oz GEneral; lying in bed in no acute distress CVS;S1S2 regular chest: CTAB, no rales or wheezing Abdomen: soft, NT, ND, positive bowel sounds extremities no edema Active Medications Generic Name Dose Route Start Last Admin Trade Name Freq PRN Reason Stop Dose Admin Benzocaine/Menthol 1 each 04/09/17 08:45 04/09/17 16:59 Cepacol Lozenge - MM 1 each PRN PRN Administration SORE THROAT Chlorhexidine Gluconate 1 applic 04/07/17 22:00 04/08/17 22:07 Hibiclens For Decolonization - TP 1 applic HS CADEN Administration Insulin Aspart 0 units 04/09/17 22:00 Novolog SQ HS CADEN Protocol Insulin Aspart 1 vial 04/09/17 16:30 04/09/17 16:20 Novolog Vial Sliding Scale - SQ 6 units TIDAC CADEN Administration Protocol Insulin Detemir 10 units 04/09/17 20:00 Levemir Vial SQ BID@0800,2000 CADEN Metoclopramide HCl 5 mg 04/08/17 17:15 04/09/17 16:18 Reglan - PO 5 mg TIDAC CADEN Administration Mupirocin 1 applic 04/07/17 22:00 04/09/17 11:00 Bactroban Ointment (For Decolonization) - NS 04/12/17 21:59 1 applic BID CADEN Administration Ondansetron HCl 4 mg 04/07/17 13:01 04/07/17 22:31 Zofran Injection IVPUSH 4 mg Q4H PRN Administration NAUSEA AND/OR VOMITING Pantoprazole Sodium 40 mg 04/08/17 09:45 04/09/17 10:15 Protonix - PO 40 mg DAILY CADEN Administration Laboratory Results - last 24 hr 04/07/17 04/07/17 04/08/17 10:25 15:24 16:47 WBC RBC Hgb Hct MCV MCH MCHC RDW Plt Count MPV Manual Slide Review Sodium Potassium Chloride Carbon Dioxide Anion Gap BUN Creatinine POC Glucometer > 400 > [phone] Random Glucose Calcium Phosphorus Magnesium 04/08/17 04/08/17 04/08/17 16:55 18:01 18:51 WBC RBC Hgb Hct MCV MCH MCHC RDW Plt Count MPV Manual Slide Review Sodium 142 Potassium 3.6 Chloride 114 H Carbon Dioxide 20 L Anion Gap 8 BUN 11 Creatinine 0.8 POC Glucometer 202.55307 181.59537 Random Glucose 153 H D Calcium 7.1 L Phosphorus 1.2 L D Magnesium 1.9 04/08/17 04/08/17 04/08/17 22:05 22:40 23:20 WBC RBC Hgb Hct MCV MCH MCHC RDW Plt Count MPV Manual Slide Review Sodium 142 Potassium 3.6 Chloride 112 H Carbon Dioxide 23 Anion Gap 7 L BUN 10 Creatinine 0.5 L D POC Glucometer 110.12204 56.68248 Random Glucose 66 L D Calcium 7.2 L Phosphorus Magnesium 04/08/17 04/09/17 04/09/17 23:56 00:38 02:44 WBC RBC Hgb Hct MCV MCH MCHC RDW Plt Count MPV Manual Slide Review Sodium Potassium Chloride Carbon Dioxide Anion Gap BUN Creatinine POC Glucometer 171.65487 125.12948 60.28870 Random Glucose Calcium Phosphorus Magnesium 04/09/17 04/09/17 04/09/17 04:27 05:00 05:00 WBC 10.0 RBC 3.11 L Hgb 9.6 L Hct 28.5 L MCV 91.7 MCH 30.9 MCHC 33.7 RDW 15.6 Plt Count 198 MPV 8.8 Manual Slide Review No Result Required. Sodium 140 Potassium 3.7 Chloride 108 H Carbon Dioxide 23 Anion Gap 9 BUN 7 D Creatinine 0.5 L POC Glucometer [phone] Random Glucose 95 D Calcium 7.3 L Phosphorus Magnesium ASSESSMENT AND PLAN: 26 yof with PMHx of type I DM on insulin pump, with numerous admissions for DKA , last in 02/2017, comes back with an episode of vomiting followed by ? hemetemesis, DKA. -DKA -Hypoglycemia -Vomiting followed by ?hemetemesis, ?Ana Torres vs mild capillary tear -Hypokalemia -Hypophosphatemia Plan: Anion gap closed. Blood sugars improved. Insulin drip d/casper this AM, Hypoglycemic overnight, started on D5-1/2 NS. Endocrine input appreciated, levemir 10 units BID ISS AC and hs. Home pump is 1.1 rate 6 AM -10 Pm and 0.9 rate 10 pm-6 AM), total 24 units in 24 hours. PO improving. Replete K and phos prn. H/h trended down likely from aggressive hydration, h/h around prior baseline. No further episodes of vomitus. Off protonix drip. Protonix 40 mg pO daily and reglan 5 mg TID AC. DVTPPX with SCDs d/c in 24 hours if blood sugars stable and no new concerns. Central line for access. Total critical care time spent in ICU 35min.
[2017-04-09] MEDS ORDERED: ONDANSETRON 4 MG/2 ML VIAL IVPUSH PRN (18:42)
[2017-04-09] MEDS ORDERED: INSULIN (NOVOLOG) ASPART 100 UNITS/ML 10ML VIAL ONE (20:15)
[2017-04-09] MEDS: INSULIN DETEMIR 100 UNITS/ML MDV SQ SCH (21:39)
[2017-04-09] MEDS ORDERED: CHLORHEXIDINE GLUCONATE 4% CLEANSER FOR DECOLONIZATION TP SCH (22:00)
[2017-04-09] MEDS ORDERED: Insulin (LOG) Aspart 100 UNITS/ML VIAL SQ SCH (22:00)
[2017-04-10] MEDS: METOCLOPRAMIDE HCL 10 MG TABLET (FP) PO SCH ×3 (06:24→17:11)
[2017-04-10] MEDS: INSULIN SLIDING SCALE (NOVOLOG) 1 VIAL SQ SCH ×3 (06:25→17:10)
[2017-04-10 07:41] LABS: BASOPHIL 0.2 % (0-2.0); EOSINOPHIL 2.4 % (0-4.5); MCH 30.6 pg (25.7-33.7); MCHC 33.5 g/dl (32.0-36.0); MEAN CELL VOLUME 91.4 fl (80-96); MEAN PLT VOLUME 8.6 fl (7.5-11.1); NEUTROPHILS 57.1 % (42.8-82.8); PLATELET COUNT 235 K/MM3 (134-434); RDW 15.5 % (11.6-15.6); WHITE BLOOD COUNT 6.4 K/mm3 (4.0-10.0)
[2017-04-10 07:45] LABS: ANION GAP 6 (8-16); CALCIUM 8.1 mg/dL (8.5-10.1); CO2 27 mmol/L (21-32); CREATININE 0.5 mg/dL (0.55-1.02); GLUCOSE,RANDOM 119 mg/dL (74-106); MAGNESIUM 1.9 mg/dL (1.8-2.4); PHOSPHOROUS 3.2 mg/dL (2.5-4.9)
--- NOTE | 2017-04-10 09:19 | PN ---
Progress Note (short form) - Note Progress Note: Feels good Denies any complaints Eager to go home Vital Signs Period Temp Pulse Resp BP Sys/Hwang Pulse Ox Last 24 Hr 97.6 F-99.2 F 87-106 16-20 100-139/72-97 95 PE: AOx3 Neck: Supple, No JVD HEENT: EOMI Lungs: CTA CVS: S1S2 Abd: Benign EXt: No edema Neuro: No focal deficit CMP Sodium 142 mmol/L (136-145) 04/10/17 06:00 Potassium 3.7 mmol/L (3.5-5.1) 04/10/17 06:00 Chloride 109 mmol/L (98-107) H 04/10/17 06:00 Carbon Dioxide 27 mmol/L (21-32) 04/10/17 06:00 Anion Gap 6 (8-16) L 04/10/17 06:00 BUN 8 mg/dL (7-18) 04/10/17 06:00 Creatinine 0.5 mg/dL (0.55-1.02) L 04/10/17 06:00 Creat Clearance w eGFR 45.82 (>60) 04/07/17 10:45 POC Glucometer 106 UNITS (80-120) 04/10/17 06:17 Random Glucose 119 mg/dL (74-106) H D 04/10/17 06:00 Calcium 8.1 mg/dL (8.5-10.1) L 04/10/17 06:00 Phosphorus 3.2 mg/dL (2.5-4.9) D 04/10/17 06:00 Magnesium 1.9 mg/dL (1.8-2.4) 04/10/17 06:00 Total Bilirubin 0.9 mg/dL (0.2-1.0) D 04/07/17 10:45 AST 35 U/L (15-37) D 04/07/17 10:45 ALT 30 U/L (12-78) D 04/07/17 10:45 Alkaline Phosphatase 112 U/L (45-117) D 04/07/17 10:45 Total Protein 8.1 g/dl (6.4-8.2) D 04/07/17 10:45 Albumin 3.9 g/dl (3.4-5.0) D 04/07/17 10:45 Lipase 76 U/L (73-393) 04/07/17 10:45 Serum , Qual Negative 04/07/17 10:45 Current Medications Generic Name Dose Route Start Last Admin Trade Name Freq PRN Reason Stop Dose Admin Benzocaine/Menthol 1 each 04/09/17 18:42 Cepacol Lozenge - MM PRN PRN SORE THROAT Chlorhexidine Gluconate 1 applic 04/09/17 22:00 04/09/17 21:42 Hibiclens For Decolonization - TP Not Given HS CADEN Insulin Aspart 1 vial 04/09/17 22:00 04/09/17 21:42 Novolog Vial Sliding Scale - SQ 2 units HS CADEN Administration Protocol Insulin Aspart 1 vial 04/10/17 07:00 04/10/17 06:25 Novolog Vial Sliding Scale - SQ Not Given TIDAC [facility] Protocol Insulin Detemir 10 units 04/09/17 20:00 04/09/17 21:39 Levemir Vial SQ 10 units BID@0800,2000 CADEN Administration Metoclopramide HCl 5 mg 04/10/17 07:00 04/10/17 06:24 Reglan - PO 5 mg TIDAC CADEN Administration Mupirocin 1 applic 04/09/17 22:00 04/09/17 21:42 Bactroban Ointment (For Decolonization) - NS 04/12/17 21:59 Not Given BID CADEN Ondansetron HCl 4 mg 04/09/17 18:42 Zofran Injection IVPUSH Q4H PRN NAUSEA AND/OR VOMITING Pantoprazole Sodium 40 mg 04/10/17 10:00 Protonix - PO DAILY [facility] AP: T1DM S/P DKA Continue Levermir 10 BID Novolog SS coverage Pt to go home on current schedule To see her Torch Cutter on discharge this week. To stay on current basal bolus regimen until she discusses with her Endo regarding any changes. To call her Insulin pump company to see if there are any issues with the pump Problem List - Problems (1) DKA (diabetic ketoacidoses) Code(s): E13.10 - OTH DIABETES MELLITUS WITH KETOACIDOSIS WITHOUT COMA Qualifiers: Diabetes mellitus type: other specified (including ADOLFO) Diabetes mellitus complication detail: without coma Qualified Code(s): E13.10 - Other specified diabetes mellitus with ketoacidosis without coma (2) Type 1 diabetes mellitus Code(s): E10.9 - TYPE 1 DIABETES MELLITUS WITHOUT COMPLICATIONS
[2017-04-10] MEDS: INSULIN DETEMIR 100 UNITS/ML MDV SQ SCH (09:34)
[2017-04-10] MEDS: MUPIROCIN 2% TOPICAL OINTMENT FOR DECOLONIZATION NS SCH (09:42)
[2017-04-10] MEDS ORDERED: PANTOPRAZOLE 40 MG TABLET (FP) PO SCH (10:00)
[2017-04-10] MEDS ORDERED: INSULIN (NOVOLOG) ASPART 100 UNITS/ML 10ML VIAL ONE (11:52)
--- NOTE | 2017-04-10 14:24 | PN ---
Teaching Attending Note Name of Resident: Gisele Sy ATTENDING PHYSICIAN STATEMENT I saw and evaluated the patient. I reviewed the resident's note and discussed the case with the resident. I agree with the resident's findings and plan as documented. SUBJECTIVE:asymptomatic. denies CP, SOB, fever, chills, N/V/C/D, hemetemsis OBJECTIVE: Last Vital Signs Temp Pulse Resp BP Pulse Ox 98.4 F 89 18 132/78 95 04/10/17 05:46 04/10/17 09:36 04/10/17 09:36 04/10/17 09:36 04/10/17 09:00 General NAD ASSESSMENT AND PLAN: 26yo F wtih PMH DM on insulin pump presented to the ER with nausea and vomiting with hemetemsis 1. DKA- gap closed and sugars improved with current insulin regimen. seen by endo and determined should continue levemir 10 units BID with iss for now. instructed importance of compliance and follow up this week with endo. counseled on risks of not complying and complications of uncontrolled DM 2. Hemetemsis- suspect ninoska meier tear. no repeated episodes. Hgb stable. plan for EGD as outpatient. GI referral given 3. Anemia- Hgb stable. no repeat bleeding. 4. d/c home on insulin regimen. strongly encouraged to see grader patrol this week
[2017-04-10 14:32] VITALS: BP 101/57; PULSE 94; TEMP 98
[2017-04-10] MEDS ORDERED: diphenhydrAMINE HCL 25 MG CAPSULE (FP) PO ONE (16:20)
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
== END 2017-04-10 18:15 | disposition home or self-care (01) | DRG 813 ==
LOC: JER 09:58 → JERBED 14:06 → JICU 18:25 → J7W 04-09 18:55
PROVIDERS: ADMIT Hospitalist; ATTEND Internal Medicine
DX: T85.694A Other mechanical complication of insulin pump, initial encounter (principal); K92.0 Hematemesis; D64.9 Anemia, unspecified; D72.829 Elevated white blood cell count, unspecified; E87.6 Hypokalemia; E83.39 Other disorders of phosphorus metabolism; E87.1 Hypo-osmolality and hyponatremia; E87.2 Acidosis; E10.10 Type 1 diabetes mellitus with ketoacidosis without coma
CPT/HCPCS: 36415; 36600; 71010-TC; 74176-TC; 80048; 80053; 81003; 81015; 82009; 82375; 82803; 83050; 83690; 83735; 84100; 84703; 85025; 85027; 87086; 93005; 93010; 99281-25